=== PATIENT | female | born 1995 | race Caucasian/White ===

== ENCOUNTER 2018-10-18 23:18 | Emergency (ER) | payer OTHER, SELFPAY ==
[2018-10-18 23:24] VITALS: BP 97/65; PULSE 71; RESP 18; TEMP 36.2; O2SAT 100; BMI 28.3
--- NOTE | 2018-10-18 23:42 | ED_ITS ---
HPI - Female Genitourinary General Chief complaint: Urogenital-Female Stated complaint: 7 wks , bleeding Time Seen by Provider: 10/18/18 23:41 Source: patient Mode of arrival: ambulatory Limitations: no limitations History of Present Illness HPI Narrative: 23-year-old at approximately 7 weeks EGA here for evaluation of vaginal spotting. She states that it started today. No other vaginal discharge. No urinary symptoms. No back pain. No fevers. Related Data Allergies Allergy/AdvReac Type Severity Reaction Status Date / Time No Known Drug Allergies Allergy Verified 10/18/18 23:28 Review of Systems Constitutional Denies fever(s) and Denies headache(s) ENT Ears, Nose, Mouth, and Throat: Denies headache(s) Gastrointestinal Gastrointestinal: Denies abdominal pain, Denies nausea and Denies vomiting Genitourinary Denies dysuria Comments: Vaginal spotting Musculoskeletal Denies back pain Integumentary/Breasts Denies lesions and Denies rash Neurologic Denies headache(s) Hematologic/Lymphatic Comments: Not on anticoagulation PFSH Medical History Healthy adult (Acute) Surgical History H/O: section (Acute) Social History Smoking Status: Never smoker Exam Initial Vital Signs Initial Vital Signs: Vital Signs Temperature 97.1 F L 10/18/18 23:24 Pulse Rate 71 10/18/18 23:24 Respiratory Rate 18 10/18/18 23:24 Blood Pressure 97/65 10/18/18 23:24 Pulse Oximetry 100 10/18/18 23:24 Const General: cooperative, healthy appearing, comfortable, well developed, well groomed and No acute distress Orientation: alert, awake and oriented x3 HENMT Head: normal to inspection and normocephalic GI Inspection: non-distended Palpation: soft, No firm and No tender Back/Spine/Pelvis Back: No CVA tenderness Skin Lesions: no lesions Rashes: no rashes Neuro General: alert, awake and oriented x3 Extrem General: normal to inspection and capillary refill normal Psych Appearance: grossly normal and well kempt Course Orders Ordered: ED Orders 10/18/18 23:51 ABO RH Type Stat HCG Quantitative Stat 10/19/18 00:01 US OB <= 14 weeks fetus Stat Vital Signs - 8 hr 10/18/18 23:24 10/19/18 01:54 Temperature 97.1 F L 98.3 F Pulse Rate 71 70 Respiratory Rate 18 17 Blood Pressure 97/65 109/58 L Pulse Oximetry 100 99 MDM - Female Genitourinary Lab Data Lab Results 10/18/18 10/18/18 Range/Units 23:51 23:51 HCG, Quant 39706 mIU/mL Blood Type A Positive Point of Care Testing Test Results Positive Urine Dip Bedside Urine Glucose Negative Bedside Urine Bilirubin - Negative Bedside Urine Ketone - Negative Urine Specific [place] 1.025 Bedside Urine Occult Blood ++ Bedside Urine pH 6.0 Bedside Urine Protein - Negative Bedside Urine Urobilinogen - Negative Bedside Urine Nitrite - Negative Bedside Urine Leukocytes - Negative Esterase Imaging Data US - abdomen: Radiologist's impression: Small. Station 0 hemorrhage without mass effect on the gestational sac. Early single live IUP consistent with 7 weeks 2 days gestation. Limited visualization of the maternal ovaries MDM Narrative Medical decision making narrative: Patient is Rh positive. No indication for RhoGAM. IUP seen on the ultrasound. She has a benign abdominal exam. We did discuss threatened miscarriage. Did discuss return precautions. Will hold on further workup for now. Patient is instructed to make contact with a OB provider. She expressed understanding and agreement with plan. Discharge Plan Departure Patient Disposition: Home Clinical Impression: Threatened miscarriage Discharge Date/Time: 10/19/18 01:55 Interventions: ED Discharge Assessment Last Done: 10/19/18 01:54 Instructions: DI for Threatened Activity Restrictions/Additional Instructions: The ultrasound today shows that your baby looks well had an estimated age of 7 weeks and 2 days. Recommend you keep all of your scheduled medical appointments. Return to the emergency department for any new or worsening symptoms. Continue all medications as directed
--- NOTE | 2018-10-19 00:01 | DI.US.S_ITS ---
PROCEDURE: US OB <= 14 WEEKS FETUS INDICATIONS: 7 weeks EGA and vag bleeding OUTSIDE/PRIOR DATING DATA: Last menstrual period (LMP): 08/24/18. LMP-based estimated date of delivery (CHELSEA): 05/31/19. First dating scan (date and location): 10/19/18. Estimated date of delivery (CHELSEA) from first dating scan: 06/05/19. TECHNIQUE: Real-time scanning was performed of the fetus and maternal pelvic organs, with image documentation. Endovaginal scanning was also performed to better visualize the fetus and maternal ovaries. COMPARISON: None. FINDINGS: Embryo: Albers-rump length measures 11 mm corresponding to 7 weeks 2 days. Embryonic heart rate measures 135 beats per minute. Small perigestational site bleed site measuring roughly 1.3 x 0.4 x 1.3 cm. Measurement variability in dating: +/- 4 weeks by LMP, +/- 7 days by mean sac diameter (use before 6 weeks gestation if crown-rump length not able to be measured), +/- 5 days by crown-rump length (up to 8 weeks 6 days gestation), +/- 7 days by crown-rump length (up to 13 weeks 6 days gestation). Maternal organs: Adnexa within normal limits. Limited images through the kidneys demonstrate no hydronephrosis. IMPRESSION: 7 week 2 day single living IUP and there is a small perigestational sac bleed site. Dictated by: Curt MCKEON Interpreted: Pastora Malone MD on 10/19/2018 at 8:52 Approved by: Pastora Malone M.D. on 10/19/2018 at 12:56
[2018-10-19 00:27] LABS: HCG Quantitative /Beta subunit 83909 mIU/mL
[2018-10-19 01:54] VITALS: BP 109/58; PULSE 70; RESP 17; TEMP 36.8; O2SAT 99
== END 2018-10-19 01:55 | disposition home or self-care (01) ==
PROVIDERS: Emergency Provider Emergency Medicine
DX: O20.0 Threatened abortion (principal); Z3A.01 Less than 8 weeks gestation of pregnancy
CPT/HCPCS: 76801; 76817; 81003; 81025; 84702; 86900; 86901; 99283; 99284

== ENCOUNTER 2019-02-03 09:27 | Outpatient (CLI) | payer OTHER, SELFPAY | END 2019-02-03 10:30 | disposition home or self-care (01) | LOC: OB 02-08 06:52 | PROVIDERS: Visit Provider Family Medicine | DX: O42.912 Preterm premature rupture of membranes, unspecified as to length of time between rupture and onset of labor, second trimester (principal); Z3A.23 23 weeks gestation of pregnancy | CPT/HCPCS: 59025; 84112; G0378; G0379 ==

== ENCOUNTER → 2020-10-15 10:11 | Outpatient (CLI) | payer OTHER, SELFPAY ==
[2020-10-17 01:06] LABS: Chlamydia trachomatis NAA Negative (Negative); Neisseria gonorrhoeae NAA Negative (Negative)
== END ==
PROVIDERS: Visit Provider Specialist
DX: Z34.81 Encounter for supervision of other normal pregnancy, first trimester (principal); Z3A.12 12 weeks gestation of pregnancy
CPT/HCPCS: 87491; 87591

== ENCOUNTER → 2020-10-30 11:22 | Outpatient (CLI) | payer OTHER, SELFPAY ==
[2020-10-30 12:38] LABS: Add Manual Diff / Slide Review NO; Basophils Absolute Auto 0 /uL (0-100); Basophils Percent Auto 0.3 % (0-2); Eosinophils Absolute Auto 100 /uL (0-450); Eosinophils Percent Auto 0.6 % (2-4); Hemoglobin 13.7 g/dL (12.0-16.0); Lymphocytes Absolute Auto 1500 /uL (1100-4500); Lymphocytes Percent Auto 17.1 % (25-40); Mean Corpuscular HGB Conc 35.2 % (30-36); Mean Corpuscular Hemoglobin 30.5 PG (26-34); Mean Corpuscular Volume 86.8 fL (80-100); Monocytes Absolute Auto 500 /uL (0-900); Monocytes Percent Auto 5.3 % (3-14); Neutrophils Absolute Auto 6900 /uL (1500-7000); Neutrophils Percent Auto 76.7 % (50-75); Platelet Count 249 X10^3/uL (150-400); Red Blood Cell Count 4.49 X10^6/uL (4.0-5.2); Red Cell Distribution Width 12.9 % (11.6-14.8)
[2020-10-30 12:42] LABS: Appearance Urine UA CLEAR; Bilirubin Urine UA NEGATIVE (NEGATIVE); Color Urine UA YELLOW; Glucose Urine UA NEGATIVE (Negative); Ketones Urine UA NEGATIVE (NEGATIVE); Leukocyte Esterase Urine UA NEGATIVE (NEGATIVE); Nitrite Urine UA NEGATIVE (Negative); Occult Blood Urine UA TRACE-INTACT (Negative); Protein Urine UA NEGATIVE (Negative); Urobilinogen Urine UA 0.2 E.U./dL (0.2)
[2020-10-31 06:35] LABS: Varicella IgG Antibody 1444 index (Immune >165)
[2020-10-31 10:07] LABS: RPR Screen Non Reactive (Non Reactive)
[2020-11-01 18:15] LABS: Hepatitis B Surface Antigen NEGATIVE s/c (NEGATIVE); Rubella Antibody IgG 29.2 IU/mL (>15)
[2020-11-01 18:35] LABS: HIV 1 & 2 Ab/Ag 4th Gen Combo NEGATIVE (NEGATIVE); Hep C Virus Ab w/Reflex Quant NEGATIVE s/c (NEGATIVE)
== END ==
PROVIDERS: Referring Provider Specialist; Visit Provider Specialist
DX: Z34.81 Encounter for supervision of other normal pregnancy, first trimester (principal)
CPT/HCPCS: 36415; 80055; 81003; 86787; 86803; 86850; 86900; 86901; 87077; 87086; 87185; 87186; 87389

== ENCOUNTER → 2020-11-28 14:11 | Outpatient (CLI) | payer OTHER, SELFPAY ==
[2020-11-28 16:16] LABS: Urine N gonorrhoeae NOT DETECTED
[2020-11-28 16:54] LABS: Urine Chlamydia NOT DETECTED
[2020-11-30 20:36] LABS: AFP, Serum 60.2 ng/mL (.); Inhibin A, Dimeric 162.71 pg/mL (.); Inhibin A, MoM 1.15 (.); Maternal Ethnicity Caucasian (.); Maternal Weight 193 lbs (.); Number of Fetuses No (.); OSBR Risk 1 IN 1895 (.); Results Report (.); Test Results *Screen Negative* (.); hCG, Serum 24369 mIU/mL (.)
== END ==
PROVIDERS: Referring Provider Specialist; Visit Provider Specialist
DX: Z34.82 Encounter for supervision of other normal pregnancy, second trimester (principal); Z3A.17 17 weeks gestation of pregnancy
CPT/HCPCS: 82105; 82677; 84702; 86336; 87491; 87591

== ENCOUNTER → 2020-12-14 10:33 | Outpatient (CLI) | payer OTHER, SELFPAY ==
--- NOTE | 2020-12-14 10:34 | DI.US.S_ITS ---
PROCEDURE: US OB >= 14 WEEKS FETUS INDICATIONS: 20 week anatomy scan OUTSIDE/PRIOR DATING DATA: Last menstrual period (LMP): 07/26/2020. LMP-based estimated date of delivery (CHELSEA): 05/02/2021 . First dating scan (date and location): 09/17/2020 . Estimated date of delivery (CHELSEA) from first dating scan: 04/29/2021 . TECHNIQUE: Real-time scanning was performed of the fetus, with image documentation and biometric measurements. Endovaginal scanning: No COMPARISON: None. FINDINGS: General: A single living intrauterine gestation is present. Presentation: Transverse to breech. Placenta: Placental position is anterior , without previa. Amniotic fluid index: 13.8 cm, normal range is 5-24 cm. heart rate: 141 beats per minute. Maternal cervical canal: 4.3 cm long. Normal lower limit is 2.5 cm. biometrics: Biparietal diameter: 20 weeks 3 days Head circumference: 21 weeks 3 days Abdominal circumference: 21 weeks 6 Femur length: 22 weeks 3 days Estimated gestational age from initial scan: 20 weeks 4 days Composite gestational age from present scan: 21 weeks 4 days Estimated weight and percentile: 767 g, 98th percentile Measurement variability for biometric dating: +/- 7 days from 14 weeks to 15 weeks 6 days gestation, +/- 10 days from 16 weeks to 21 weeks 6 days gestation, +/- 2 weeks from 22 weeks to 27 weeks 6 days gestation, +/- 3 weeks for 28 weeks gestation or later. weight reference: 4500 g or EFW >90/95% is considered macrosomia or large for gestational age. EFW <10% is small for gestational age. EFW 5% or less is considered intra-uterine growth restriction. Anatomic survey: Neuro: Ventricles are non-dilated at less than 10 mm. Cisterna magna is normal at 3-11 mm. Cerebellum is normal in size and morphology. Nuchal skin fold: Normal at less than 6 mm between 14-21 weeks gestational age. Face: Nose and lips, facial profile are normal. Spine: No evidence for spina bifida. Heart: 4-chambered heart is present, with normal ventricular outflow tracts. Diaphragm: Diaphragm is intact. Stomach: Left-sided stomach is present. Kidneys: No hydronephrosis. Normal is less than 5 mm in 2nd trimester, less than 7 mm in 3rd trimester. Cord: 3-vessel cord has orthotopic insertion. Bladder: Normal in size. Extremities: All 4 extremities identified. IMPRESSION: Single living IUP redemonstrated and interval growth is greater than normal with estimated weight 98th percentile. Follow-up growth parameters recommended to exclude early developing macrosomia. Normal anatomic survey. Dictated by: Curt BANKS Interpreted: Silvino Boston MD on 12/14/2020 at 14:53 Approved by: Silvino Boston M.D. on 12/14/2020 at 15:13
== END ==
PROVIDERS: Referring Provider Specialist; Visit Provider Specialist
DX: Z34.82 Encounter for supervision of other normal pregnancy, second trimester (principal); Z3A.21 21 weeks gestation of pregnancy
CPT/HCPCS: 76811

== ENCOUNTER → 2021-01-17 09:29 | Outpatient (CLI) | payer OTHER, SELFPAY ==
[2021-01-17 11:39] LABS: GTT (PREG) 1 Hour PP 50gm Dose 127 mg/dL (76-139)
[2021-01-17 11:57] LABS: Hematocrit 33.3 % (36-46); Hemoglobin 11.5 g/dL (12.0-16.0)
== END ==
PROVIDERS: Family Provider Specialist; Referring Provider Specialist; Visit Provider Specialist
DX: Z34.82 Encounter for supervision of other normal pregnancy, second trimester (principal); Z3A.25 25 weeks gestation of pregnancy
CPT/HCPCS: 36415; 82950; 85014; 85018

== ENCOUNTER 2021-02-14 09:00 | Outpatient (RCR) | payer OTHER, SELFPAY ==
--- NOTE | 2021-01-17 15:44 | PT.OIE ---
Current Diagnoses Other female genital prolapse (01/17/21) Other specified related conditions, second trimester (01/17/21) Pelvic and perineal pain (01/17/21) Encounter for supervision of normal , unspecified, unspecified trimester (01/17/21) Past Medical History (This Medical Record has been edited. Action required.) Abnormal Pap smear of cervix (~2017) Anemia (~2013) Healthy adult Past Surgical History (This Medical Record has been edited. Action required.) Anesthesia H/O: section History of section [place] teeth removed (~2013) Visit Care Team Role Provider Type Adri Mccormack MD Attending Provider Physician Family Provider Referring Provider Specialty: REQUIREMENTS ENGINEER Address: [address] [place] [address], [facility] Email: [email or web address] Physical Therapy Initial Evaluation PT-OP-A Visit Information Start: 01/10/21 17:22 Freq: Status: Active Protocol: Document 01/17/21 12:47 LRN (Rec: 01/17/21 14:17 LRN [id number]) Out-Patient Physical Therapy Visit Information Visit Information Visit Type Initial Evaluation Visit Start Time 12:47 Visit Stop Time 13:32 Total Visit Minutes 45 Visit Number 1 Evaluation Information Evaluation Date 01/17/21 Precautions Precautions Third pregancy, pt scheduled for (due date is ) . PT-OP-B Current Condition Start: 01/10/21 17:22 Freq: Status: Active Protocol: Document 01/17/21 12:47 LRN (Rec: 01/17/21 14:17 LRN [id number]) Current Condition History of Current Condition Onset Date 11/2020 Current Complaints Pelvic Pain History of Current Condition with 3rd baby and having pelvic pain. PF hurts all the time in all positions. Pain is in the pelvic floor and lower left side of the back. Pt is 25 weeks along and is planning a . Due date is 05/04/21. Has only found IBP medication to be helpful, tried ice, heat and donut pillow, without relief. No history of urinary leakage or constipation. Onse of back pain started with . She has had general middle LBP occasionally prior to . Had pelvic pain with 2nd at end of that resolved after . Prior Treatments and Tests None Future Testing and Treatments Planned of date unknown (due 05/04/21) Treatment Goals Patient/Caregiver Goals Goal is to relieve as much pain as possible. 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 Baseline Function- Recreation/Hobbies Exercised in gym 4x/week and ran. 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 Functional Limitations- Recreation/ Walking at most 1/4 mile, must Hobbies stop due to pain. Personal Factors Other Personal Factors That May Effect 2 small children (ages 4 & 1) Therapy/Recovery at home. 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 PT-OP-C Subjective Start: 01/10/21 17:22 Freq: Status: Active Protocol: Document 01/17/21 12:47 LRN (Rec: 01/17/21 14:17 LRN [id number]) OP-PT Subjective Patient Comments Patient Comments Sleeps on sides, but lately has been sleeping on her back for past 1.5 weeks because it is more comfortable to sleep; her pulls her over because she can't roll to get up and he has to help her sit up. Patient Questionnaires Pelvic Pain and Urgency/Frequency Patient Symptom Scale Pelvic Pain Score 21 OP-PT Pain Assessment Location L low back Pain Location Details L low back Intensity 7 Scale Used Numeric (0 - 10) Description Throbbing Frequency Intermittent Pain Duration 5' after moving Pain Aggravating Factors Changing Position Other Pain Aggravating Factors Sit>stand, rolling in bed. Pelvic Floor Pain Location Details Mainly front of PF Intensity 9 Scale Used Numeric (0 - 10) Description Throbbing Frequency Constant Pain Alleviating Factors Medication PT-OP-I Pelvic Floor Start: 01/10/21 17:22 Freq: Status: Active Protocol: Document 01/17/21 12:47 LRN (Rec: 01/17/21 14:17 LRN [id number]) Pelvic Floor Assessment Bowel Bowel Movement Frequency 1x/day or every other day. [place] Stool Chart Comments Bowel types are 3 & 4 Comments Pelvic Floor Comments Labia Majora & Minora, Superficial vaginal muscles - tenderness, trigger points and muscle guarding present. PT-OP-J Posture/Palpation/Skin Start: 01/10/21 17:22 Freq: Status: Active Protocol: Document 01/17/21 12:47 LRN (Rec: 01/17/21 14:17 LRN [id number]) Posture Evaluation Position Standing Head/C-Spine Posture Forward Head T-Spine Posture Flattened L-Spine Posture Increased Lordosis Pelvis Posture Anteriorly Tilted Knee Posture (L) Genu Valgus,(R) Genu Valgus Ankle/Foot Posture (L) Pronated,(R) Pronated Comments Posture Comments R foot pronates more than L. Pt sits leaning to the L with R leg crossed of the L leg. Palpation Assessment Location Hip AD tendons Palpation Location Hip AD tendons, R> L Palpation Findings Tenderness,Trigger Point L Low Back Palpation Location L low back and gluteals Palpation Details L PSIS is anterior (deep) in standing: L Iliac Crest is low. R scapula is low. Pain at L Piriformis PT-OP-K Range of Motion Start: 01/10/21 17:22 Freq: Status: Active Protocol: Document 01/17/21 12:47 LRN (Rec: 01/17/21 14:17 LRN [id number]) Lumbar Spine Range of Motion Lumbar Spine Active Degrees Testing Position Standing Flexion 60 Extension 30 Rotation Left 25 Rotation Right 25 Lateral Flexion Left 22 Lateral Flexion Right 20 ROM Limitations Pain Comments Pain PF increased > with BB than FB FB is with 20 deg's hip ext BB is with 7 deg's hip ext PT-OP-M Strength Start: 01/10/21 17:22 Freq: Status: Active Protocol: Document 01/17/21 12:47 LRN (Rec: 01/17/21 14:17 LRN [id number]) Trunk Strength Trunk Manual Muscle Testing Testing Position Supine Core Stabilization Pt is not able to maintain core stability with MMT of hips Hip Strength Hip Manual Muscle Testing Right Flexion (L2) 2+ Poor+ Abduction 2+ Poor+ Adduction 1 Trace External Rotation 3 Fair Internal Rotation 3 Fair Comments PF pain with all leg movememts . Left Flexion (L2) 2+ Poor+ Abduction 2+ Poor+ Adduction 1 Trace External Rotation 3 Fair Internal Rotation 3 Fair Comments PF pain worse with hip flexion (L>R) PF pain with all leg movememts . PT-OP-Q Treatments Start: 01/10/21 17:22 Freq: Status: Active Protocol: Document 01/17/21 12:47 LRN (Rec: 01/17/21 14:17 LRN [id number]) Self-Care/Home Management Treatment Education Patient Education Home Exercise Program Other Education Discussed results of evalation , goals, and plan of care. Activities Self-Care/Home Management Activities I/S pt in starting with TA contractions, f/b sitting BKFO & then PF strengthening. PT-OP-T Assessment and Plan Start: 01/10/21 17:22 Freq: Status: Active Protocol: Document 01/17/21 12:47 LRN (Rec: 01/17/21 14:17 LRN [id number]) Physical Therapy Assessment Rehab Potential Rehabilitation Potential Good Evaluation Complexity Number of Personal Factors/Comorbidities 1-2 Number of Body Systems Impaired 4 or More Clinical Presentation at Evaluation Evolving Impairments Impairments Activity Tolerance,Pain,Soft Tissue Mobility,Strength, Transfers Goals Three Impairment L LBP with transfers (rated 7/ 10 Short Term Goal (STG) Pt will be independent with a hip stabilization and flexibility ex program. STG Duration 01/16/21 Residential Goal (LTG) Decrease L LBP with transfers. LTG Duration 04/27/21 Two Impairment PF pain in all positions ( rated 9/10) Short Term Goal (STG) Pt will be educated & independent in a PF/core strengthening home program. STG Duration 02/22/21 Etymology Professor Goal (LTG) Relieve Pelvic Floor pain as possible, with pt able to tolerate sleeping on sides instead of on the back as her progresses. LTG Duration 04/27/21 One Impairment Pt lacks self care HEP Short Term Goal (STG) Pt will be educated in proper transfer and pain managment techniques. STG Duration 01/25/21 Etymology Professor Goal (LTG) Pt will be educated in proper posturing to counteract postural changes with . LTG Duration 02/08/21 Assessment Summary Assessment Pt presents with pelvic floor and L low back pain due to soft tissue dysfunction and general weakness of the PF, core, hips and probable L SIJ instability. Special Test for SIJ instability, and hip mobility testing was deferred due to increasing pain complaints as evaluation was progressed. Pt may be straining her PF muscles from sitting all day and with progression of her she has general instability of her core and pelvis, exacerbating her PF pain. The pt will benefit from skilled physical therapy for strengthening of her core, hips, and PF; education of proper transfers and nighttime positioning and placement on a self care HEP. The pt may benefit from a SI belt if strengthening alone is not able to stabilize her pelvis. Physical Therapy Plan Frequency and Duration Frequency of Treatment 1x/Week Plan of Care Start Date 01/17/21 Plan of Care End Date 04/27/21 Therapeutic Interventions Therapeutic Interventions Coordination Training,Home Exercise Program,Joint Mobilizations,Manual Therapy, Neuromuscular Re-education, Patient/Caregiver Education, Self-Care/Home Management,Soft Tissue Mobilization, Therapeutic Activities, Therapeutic Exercises Modalities Biofeedback,Cold Pack/Ice Massage,Electric Stimulation, Hot Packs Next Visit Focus/Plan Next Note Type Treatment Note Next Visit Plan Start eduation in self care HEP: TA/hip/PF strengthening. Check ROM of hips as tolerated and issue HEP for areas of tightness (hip AD, IR ). Start pt on PF stretch ( Happy Baby Pose Child's Pose, Squats). Educate pt in stretches and ex she can do at work/desk.
--- NOTE | 2021-01-17 15:44 | PT.OPPOC ---
Physical, Occupational & Speech Therapy At [facility] Current Diagnoses Other female genital prolapse (01/17/21) Other specified related conditions, second trimester (01/17/21) Pelvic and perineal pain (01/17/21) Encounter for supervision of normal , unspecified, unspecified trimester (01/17/21) Visit Care Team Role Provider Type Adri Mccormack MD Attending Provider Physician Family Provider Referring Provider Specialty: EFFICIENCY EXPERT Address: [address] [place] [address], [address] Email: [email or web address] Plan Of Care PT-OP-T Assessment and Plan Start: 01/10/21 17:22 Freq: Status: Active Protocol: Document 01/17/21 12:47 LRN (Rec: 01/17/21 14:17 LRN [id number]) Physical Therapy Assessment Rehab Potential Rehabilitation Potential Good Evaluation Complexity Number of Personal Factors/Comorbidities 1-2 Number of Body Systems Impaired 4 or More Clinical Presentation at Evaluation Evolving Impairments Impairments Activity Tolerance,Pain,Soft Tissue Mobility,Strength, Transfers Goals Three Impairment L LBP with transfers (rated 7/ 10 Short Term Goal (STG) Pt will be independent with a hip stabilization and flexibility ex program. STG Duration 01/16/21 Gluing Machine Feeder Goal (LTG) Decrease L LBP with transfers. LTG Duration 04/27/21 Two Impairment PF pain in all positions ( rated 9/10) Short Term Goal (STG) Pt will be educated & independent in a PF/core strengthening home program. STG Duration 02/22/21 Prison Goal (LTG) Relieve Pelvic Floor pain as possible, with pt able to tolerate sleeping on sides instead of on the back as her progresses. LTG Duration 04/27/21 One Impairment Pt lacks self care HEP Short Term Goal (STG) Pt will be educated in proper transfer and pain managment techniques. STG Duration 01/25/21 Gluing Machine Feeder Goal (LTG) Pt will be educated in proper posturing to counteract postural changes with . LTG Duration 02/08/21 Assessment Summary Assessment Pt presents with pelvic floor and L low back pain due to soft tissue dysfunction and general weakness of the PF, core, hips and probable L SIJ instability. Special Test for SIJ instability, and hip mobility testing was deferred due to increasing pain complaints as evaluation was progressed. Pt may be straining her PF muscles from sitting all day and with progression of her she has general instability of her core and pelvis, exacerbating her PF pain. The pt will benefit from skilled physical therapy for strengthening of her core, hips, and PF; education of proper transfers and nighttime positioning and placement on a self care HEP. The pt may benefit from a SI belt if strengthening alone is not able to stabilize her pelvis. Physical Therapy Plan Frequency and Duration Frequency of Treatment 1x/Week Plan of Care Start Date 01/17/21 Plan of Care End Date 04/27/21 Therapeutic Interventions Therapeutic Interventions Coordination Training,Home Exercise Program,Joint Mobilizations,Manual Therapy, Neuromuscular Re-education, Patient/Caregiver Education, Self-Care/Home Management,Soft Tissue Mobilization, Therapeutic Activities, Therapeutic Exercises Modalities Biofeedback,Cold Pack/Ice Massage,Electric Stimulation, Hot Packs Next Visit Focus/Plan Next Note Type Treatment Note Next Visit Plan Start eduation in self care HEP: TA/hip/PF strengthening. Check ROM of hips as tolerated and issue HEP for areas of tightness (hip AD, IR ). Start pt on PF stretch ( Happy Baby Pose Child's Pose, Squats). Educate pt in stretches and ex she can do at work/desk. Plan of Care Dates Plan of Care Start Date 01/17/21 Plan of Care End Date 04/27/21 Electronically Signed by: Asya Bonner, PT 01/17/21 1584 Please Sign and Return: I have reviewed this Plan of Care and certify that the skilled therapy services above are required to meet the patient?s needs. Physician Signature Date Printed Name and Credentials Clinical Instructor Signature Printed Name and Credentials
--- NOTE | 2021-01-24 16:03 | PT.OTN ---
Current Diagnoses Other female genital prolapse (01/24/21) Other specified related conditions, second trimester (01/24/21) Pelvic and perineal pain (01/24/21) Encounter for supervision of normal , unspecified, unspecified trimester (01/24/21) Physical Therapy Treatment Note PT-OP-A Visit Information Start: 01/10/21 17:22 Freq: Status: Active Protocol: Document 01/24/21 09:03 LRN (Rec: 01/24/21 09:53 LRN [id number]) Out-Patient Physical Therapy Visit Information Visit Information Visit Type Treatment Note Visit Start Time 09:03 Visit Stop Time 09:50 Total Visit Minutes 47 Visit Number 2 PT-OP-B Current Condition Start: 01/10/21 17:22 Freq: Status: Active Protocol: Document 01/17/21 12:47 LRN (Rec: 01/17/21 14:17 LRN [id number]) Current Condition History of Current Condition Onset Date 11/2020 Current Complaints Pelvic Pain History of Current Condition with 3rd baby and having pelvic pain. PF hurts all the time in all positions. Pain is in the pelvic floor and lower left side of the back. Pt is 25 weeks along and is planning a . Due date is 05/04/21. Has only found IBP medication to be helpful, tried ice, heat and donut pillow, without relief. No history of urinary leakage or constipation. Onse of back pain started with . She has had general middle LBP occasionally prior to . Had pelvic pain with 2nd at end of that resolved after . Prior Treatments and Tests None Future Testing and Treatments Planned of date unknown (due 05/04/21) Treatment Goals Patient/Caregiver Goals Goal is to relieve as much pain as possible. 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 Baseline Function- Recreation/Hobbies Exercised in gym 4x/week and ran. 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 Functional Limitations- Recreation/ Walking at most 1/4 mile, must Hobbies stop due to pain. Personal Factors Other Personal Factors That May Effect 2 small children (ages 4 & 1) Therapy/Recovery at home. Works 3 days/week in [employer], in the [employer], works in admin sitting in chair all day. PT-OP-C Subjective Start: 01/10/21 17:22 Freq: Status: Active Protocol: Document 01/24/21 09:03 LRN (Rec: 01/24/21 09:53 LRN [id number]) OP-PT Subjective Patient Comments Patient Comments Feeling better, when squeezing the core it helps a lot but the pain is still there. No LBP today. PT-OP-I Pelvic Floor Start: 01/10/21 17:22 Freq: Status: Active Protocol: Document 01/17/21 12:47 LRN (Rec: 01/17/21 14:17 LRN [id number]) Pelvic Floor Assessment Bowel Bowel Movement Frequency 1x/day or every other day. [place] Stool Chart Comments Bowel types are 3 & 4 Comments Pelvic Floor Comments Labia Majora & Minora, Superficial vaginal muscles - tenderness, trigger points and muscle guarding present. PT-OP-J Posture/Palpation/Skin Start: 01/10/21 17:22 Freq: Status: Active Protocol: Document 01/17/21 12:47 LRN (Rec: 01/17/21 14:17 LRN [id number]) Posture Evaluation Position Standing Head/C-Spine Posture Forward Head T-Spine Posture Flattened L-Spine Posture Increased Lordosis Pelvis Posture Anteriorly Tilted Knee Posture (L) Genu Valgus,(R) Genu Valgus Ankle/Foot Posture (L) Pronated,(R) Pronated Comments Posture Comments R foot pronates more than L. Pt sits leaning to the L with R leg crossed of the L leg. Palpation Assessment Location Hip AD tendons Palpation Location Hip AD tendons, R> L Palpation Findings Tenderness,Trigger Point L Low Back Palpation Location L low back and gluteals Palpation Details L PSIS is anterior (deep) in standing: L Iliac Crest is low. R scapula is low. Pain at L Piriformis PT-OP-K Range of Motion Start: 01/10/21 17:22 Freq: Status: Active Protocol: Document 01/24/21 09:03 LRN (Rec: 01/24/21 15:52 LRN [id number]) Hip Goniometric Range of Motion Hip Left Passive Testing Position Supine Internal Rotation 30 External Rotation 85 Right Passive Testing Position Supine Internal Rotation 30 External Rotation 85 PT-OP-M Strength Start: 01/10/21 17:22 Freq: Status: Active Protocol: Document 01/17/21 12:47 LRN (Rec: 01/17/21 14:17 LRN [id number]) Trunk Strength Trunk Manual Muscle Testing Testing Position Supine Core Stabilization Pt is not able to maintain core stability with MMT of hips Hip Strength Hip Manual Muscle Testing Right Flexion (L2) 2+ Poor+ Abduction 2+ Poor+ Adduction 1 Trace External Rotation 3 Fair Internal Rotation 3 Fair Comments PF pain with all leg movememts . Left Flexion (L2) 2+ Poor+ Abduction 2+ Poor+ Adduction 1 Trace External Rotation 3 Fair Internal Rotation 3 Fair Comments PF pain worse with hip flexion (L>R) PF pain with all leg movememts . PT-OP-Q Treatments Start: 01/10/21 17:22 Freq: Status: Active Protocol: Document 01/24/21 09:03 LRN (Rec: 01/24/21 09:53 LRN [id number]) Therapeutic Exercises Sidelying Exercises Clamshell Sidelying Exercise Name Clamshell Side bilateral Reps/Minutes 10x TA tightening Sidelying Exercise Name TA tightening Side bilateral Reps/Minutes 8 hold x 15 Sitting Exercises Lat Hip Stretch Sitting Exercise Name Lateral Hip stretch Side bilateral Hip AB Sitting Exercise Name Hip AB (Cruzito BKFO) Side bilateral Equipment Used Lev 2 TB Reps/Minutes 10x 3 TA tightening Sitting Exercise Name TA tightening Side bilateral Reps/Minutes 5' Comments Extra time for training Therapeutic Activity Therapeutic Activity Sit <> Supine Name Transfer training sit <> supine Reps/Minutes 9' Self-Care/Home Management Treatment Education Patient Education Body Mechanics Other Education Educated pt in proper sit <> supine transfer. Educated pt in pelvic anatomy as it relates to pubic symphasis and SI joints. Educated & discussed use of SI belt and provided information for ordering, trial of blue strap with + response of no pain. Pt education in pain managment techniques. Activities Self-Care/Home Management Activities Issued handouts: *SI Com-pressor belt, *Sitting hip ER/IR, *PF tightening, * Clamshell & reverse clamshell. Issued Lev2 TB PT-OP-T Assessment and Plan Start: 01/10/21 17:22 Freq: Status: Active Protocol: Document 01/24/21 09:03 LRN (Rec: 01/24/21 09:53 LRN [id number]) Physical Therapy Assessment Goals Three Impairment L LBP with transfers (rated 7/ 10) Short Term Goal (STG) Pt will be independent with a hip stabilization and flexibility ex program. STG Duration 01/16/21 Fdc Goal (LTG) Decrease L LBP with transfers. LTG Duration 04/27/21 Two Impairment PF pain in all positions ( rated 9/10) Short Term Goal (STG) Pt will be educated & independent in a PF/core strengthening home program. STG Duration 02/22/21 (01/24/21: Progressed ) Fdc Goal (LTG) Relieve Pelvic Floor pain as possible, with pt able to tolerate sleeping on sides instead of on the back as her progresses. LTG Duration 04/27/21 One Impairment Pt lacks self care HEP Short Term Goal (STG) Pt will be educated in proper transfer and pain management techniques. STG Duration 01/25/21 (01/24/21: MET GOAL) Shipping Specialist Goal (LTG) Pt will be educated in proper posturing to counteract postural changes with . LTG Duration 02/08/21 Progress Towards Goals Progress Comments STG *1 MET. Assessment Summary Assessment Pt with Pelvic floor and L low back pain due to soft tissue dysfunction and general weakness of the PF, core, hips and probable L SIJ instability. Pt LBP is less with improved engagement of her TA and proper transfers. Pt improving. Physical Therapy Plan Frequency and Duration Frequency of Treatment 1x/Week Plan of Care Start Date 01/17/21 Plan of Care End Date 04/27/21 Next Visit Focus/Plan Next Note Type Treatment Note Next Visit Plan Continue education in self care HEP: TA/hip/PF strengthening. Recheck HEP issued of hip IR stretches and core/hip strengthening. Start pt on PF stretch (Happy Baby Pose Child's Pose, Squats ). Educate pt in stretches and ex she can do at work/desk .
--- NOTE | 2021-01-29 09:29 | PT-OP ANOTE ---
Cancelled, no childcare
--- NOTE | 2021-01-31 09:36 | PT-OP ANOTE ---
Pt DNS. Unable to leave message due to full mailbox
--- NOTE | 2021-02-04 16:54 | PT.OTN ---
Current Diagnoses Other female genital prolapse (02/04/21) Other specified related conditions, second trimester (02/04/21) Pelvic and perineal pain (02/04/21) Encounter for supervision of normal , unspecified, unspecified trimester (02/04/21) Physical Therapy Treatment Note PT-OP-A Visit Information Start: 01/10/21 17:22 Freq: Status: Active Protocol: Document 02/04/21 08:13 LRN (Rec: 02/04/21 09:02 LRN [id number]) Out-Patient Physical Therapy Visit Information Visit Information Visit Type Treatment Note Visit Start Time 08:15 Visit Stop Time 09:00 Total Visit Minutes 45 Visit Number 3 Evaluation Information Evaluation Date 01/17/21 Precautions Precautions Third pregancy, pt scheduled for (due date is ) . PT-OP-B Current Condition Start: 01/10/21 17:22 Freq: Status: Active Protocol: Document 01/17/21 12:47 LRN (Rec: 01/17/21 14:17 LRN [id number]) Current Condition History of Current Condition Onset Date 11/2020 Current Complaints Pelvic Pain History of Current Condition with 3rd baby and having pelvic pain. PF hurts all the time in all positions. Pain is in the pelvic floor and lower left side of the back. Pt is 25 weeks along and is planning a . Due date is 05/04/21. Has only found IBP medication to be helpful, tried ice, heat and donut pillow, without relief. No history of urinary leakage or constipation. Onse of back pain started with . She has had general middle LBP occasionally prior to . Had pelvic pain with 2nd at end of that resolved after . Prior Treatments and Tests None Future Testing and Treatments Planned of date unknown (due 05/04/21) Treatment Goals Patient/Caregiver Goals Goal is to relieve as much pain as possible. 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 Baseline Function- Recreation/Hobbies Exercised in gym 4x/week and ran. 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 Functional Limitations- Recreation/ Walking at most 1/4 mile, must Hobbies stop due to pain. Personal Factors Other Personal Factors That May Effect 2 small children (ages 4 & 1) Therapy/Recovery at home. Works 3 days/week in [employer] in the [employer], works in [employer] sitting in chair all day. PT-OP-C Subjective Start: 01/10/21 17:22 Freq: Status: Active Protocol: Document 02/04/21 08:13 LRN (Rec: 02/04/21 09:02 LRN [id number]) OP-PT Subjective Patient Comments Patient Comments Has barely had any pain. Was in hospital 2 days ago due to cramping and was told it was not labor. Was able to sleep through the whole night last week. Wears SI Belt at home. PT-OP-I Pelvic Floor Start: 01/10/21 17:22 Freq: Status: Active Protocol: Document 01/17/21 12:47 LRN (Rec: 01/17/21 14:17 LRN [id number]) Pelvic Floor Assessment Bowel Bowel Movement Frequency 1x/day or every other day. [place] Stool Chart Comments Bowel types are 3 & 4 Comments Pelvic Floor Comments Labia Majora & Minora, Superficial vaginal muscles - tenderness, trigger points and muscle guarding present. PT-OP-J Posture/Palpation/Skin Start: 01/10/21 17:22 Freq: Status: Active Protocol: Document 01/17/21 12:47 LRN (Rec: 01/17/21 14:17 LRN [id number]) Posture Evaluation Position Standing Head/C-Spine Posture Forward Head T-Spine Posture Flattened L-Spine Posture Increased Lordosis Pelvis Posture Anteriorly Tilted Knee Posture (L) Genu Valgus,(R) Genu Valgus Ankle/Foot Posture (L) Pronated,(R) Pronated Comments Posture Comments R foot pronates more than L. Pt sits leaning to the L with R leg crossed of the L leg. Palpation Assessment Location Hip AD tendons Palpation Location Hip AD tendons, R> L Palpation Findings Tenderness,Trigger Point L Low Back Palpation Location L low back and gluteals Palpation Details L PSIS is anterior (deep) in standing: L Iliac Crest is low. R scapula is low. Pain at L Piriformis PT-OP-K Range of Motion Start: 01/10/21 17:22 Freq: Status: Active Protocol: Document 01/24/21 09:03 LRN (Rec: 01/24/21 15:52 LRN [id number]) Hip Goniometric Range of Motion Hip Left Passive Testing Position Supine Internal Rotation 30 External Rotation 85 Right Passive Testing Position Supine Internal Rotation 30 External Rotation 85 PT-OP-M Strength Start: 01/10/21 17:22 Freq: Status: Active Protocol: Document 01/17/21 12:47 LRN (Rec: 01/17/21 14:17 LRN [id number]) Trunk Strength Trunk Manual Muscle Testing Testing Position Supine Core Stabilization Pt is not able to maintain core stability with MMT of hips Hip Strength Hip Manual Muscle Testing Right Flexion (L2) 2+ Poor+ Abduction 2+ Poor+ Adduction 1 Trace External Rotation 3 Fair Internal Rotation 3 Fair Comments PF pain with all leg movememts . Left Flexion (L2) 2+ Poor+ Abduction 2+ Poor+ Adduction 1 Trace External Rotation 3 Fair Internal Rotation 3 Fair Comments PF pain worse with hip flexion (L>R) PF pain with all leg movememts . PT-OP-Q Treatments Start: 01/10/21 17:22 Freq: Status: Active Protocol: Document 02/04/21 08:13 LRN (Rec: 02/04/21 09:02 LRN [id number]) Therapeutic Exercises Sidelying Exercises Clamshell Sidelying Exercise Name Clamshell Side bilateral Reps/Minutes 15x Comments Ex with holding at end-range TA tightening Sidelying Exercise Name TA tightening Side bilateral Reps/Minutes 8 hold x 15 Sitting Exercises PF strech Sitting Exercise Name Forward Bend stretch for LB/PF Side bilateral Reps/Minutes 3' General stretch program Sitting Exercise Name shoulder rolls, shifting side to side, ankle circles, neck AROM Side bilateral Reps/Minutes 3-5x each Lat Hip Stretch Sitting Exercise Name Lateral Hip stretch Side bilateral Hip AB Sitting Exercise Name Hip AB (Cruzito BKFO) Side bilateral Equipment Used Lev 2 TB Reps/Minutes 10x 3 TA tightening Sitting Exercise Name TA tightening Side bilateral Reps/Minutes 5' Comments Extra time for training Standing Exercises General stretch program Standing Exercise Name Gentle Trunk SB & rot stretch Side bilateral Reps/Minutes 3-5x each Self-Care/Home Management Treatment Education Patient Education Body Mechanics,Home Exercise Program Other Education Educated pt in proper body mechanics for daily activities . Activities Self-Care/Home Management Activities Issued & reviewed handout on * Body Mechanics for Daily Activities and *General stretch program. PT-OP-T Assessment and Plan Start: 01/10/21 17:22 Freq: Status: Active Protocol: Document 02/04/21 08:13 LRN (Rec: 02/04/21 09:02 LRN [id number]) Physical Therapy Assessment Goals Three Impairment L LBP with transfers (rated 7/ 10) Short Term Goal (STG) Pt will be independent with a hip stabilization and flexibility ex program. STG Duration 01/16/21 (02/04/21: Met for sidelie ex's) Halfway Goal (LTG) Decrease L LBP with transfers (initial 7/10). (02/04/21: LLBP is 5/10) LTG Duration 04/27/21 (02/04/21: MET GOAL) Two Impairment PF pain in all positions ( rated 9/10) Short Term Goal (STG) Pt will be educated & independent in a PF/core strengthening home program. STG Duration 02/22/21 (01/24/21: Progressed ) City Detective Goal (LTG) Relieve Pelvic Floor pain as possible, with pt able to tolerate sleeping on sides instead of on the back as her progresses. LTG Duration 04/27/21 (02/04/21: MET GOAL) One Impairment Pt lacks self care HEP Short Term Goal (STG) Pt will be educated in proper transfer and pain management techniques. STG Duration 01/25/21 (01/24/21: MET GOAL) Halfway Goal (LTG) Pt will be educated in proper posturing to counteract postural changes with . (02/04/21: Progressed) LTG Duration 02/08/21 (02/04/21: Progressed ) Assessment Summary Assessment Good recall of HEP of hip strengthening ex's. Weakness of TA on L side visible. Pt had complaints of painful PF after TA strengthening ex's; due to tight PF. Pt has had children via and not vaginally. PF stretches needed. Physical Therapy Plan Frequency and Duration Frequency of Treatment 1x/Week Plan of Care Start Date 01/17/21 Plan of Care End Date 04/27/21 Next Visit Focus/Plan Next Note Type Treatment Note Next Visit Plan 1-2 more visits for placement on HEP: Wall slides, trunk rotation, ?PF stretching ( squat), cat/cameln & child pose stretch. Start pt on PF stretch (Child's Pose, Squats) . Recheck HEP issued of hip IR stretches and general stretches (educate for at work /desk).
--- NOTE | 2021-02-15 18:08 | PT.OTN ---
Current Diagnoses Other female genital prolapse (02/14/21) Other specified related conditions, second trimester (02/14/21) Pelvic and perineal pain (02/14/21) Physical Therapy Treatment Note PT-OP-A Visit Information Start: 01/10/21 17:22 Freq: Status: Active Protocol: Document 02/14/21 08:12 LRN (Rec: 02/14/21 09:53 LRN [id number]) Out-Patient Physical Therapy Visit Information Visit Information Visit Type Treatment Note Visit Start Time 09:13 Visit Stop Time 09:53 Total Visit Minutes 40 Visit Number 4 Evaluation Information Evaluation Date 01/17/21 Precautions Precautions Third pregancy, pt scheduled for (due date is ) . PT-OP-B Current Condition Start: 01/10/21 17:22 Freq: Status: Active Protocol: Document 01/17/21 12:47 LRN (Rec: 01/17/21 14:17 LRN [id number]) Current Condition History of Current Condition Onset Date 11/2020 Current Complaints Pelvic Pain History of Current Condition with 3rd baby and having pelvic pain. PF hurts all the time in all positions. Pain is in the pelvic floor and lower left side of the back. Pt is 25 weeks along and is planning a . Due date is 05/04/21. Has only found IBP medication to be helpful, tried ice, heat and donut pillow, without relief. No history of urinary leakage or constipation. Onse of back pain started with . She has had general middle LBP occasionally prior to . Had pelvic pain with 2nd at end of that resolved after . Prior Treatments and Tests None Future Testing and Treatments Planned of date unknown (due 05/04/21) Treatment Goals Patient/Caregiver Goals Goal is to relieve as much pain as possible. 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 Baseline Function- Recreation/Hobbies Exercised in gym 4x/week and ran. 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 Functional Limitations- Recreation/ Walking at most 1/4 mile, must Hobbies stop due to pain. Personal Factors Other Personal Factors That May Effect 2 small children (ages 4 & 1) Therapy/Recovery at home. Works 3 days/week in [employer], in the [employer], works in [employer] sitting in chair all day. PT-OP-C Subjective Start: 01/10/21 17:22 Freq: Status: Active Protocol: Document 02/14/21 08:12 LRN (Rec: 02/14/21 09:53 LRN [id number]) OP-PT Subjective Patient Comments Patient Comments States it has gotten better. Pain is less intense. Pain with getting out of bed and with sit<>stand at night. OP-PT Pain Assessment Pain Assessment Grid Paper Pain Assessment Grid Completed No Location L low back Pain Location Details L Low back Intensity 3 Pain Aggravating Factors Changing Position,Activity PT-OP-I Pelvic Floor Start: 01/10/21 17:22 Freq: Status: Active Protocol: Document 01/17/21 12:47 LRN (Rec: 01/17/21 14:17 LRN [id number]) Pelvic Floor Assessment Bowel Bowel Movement Frequency 1x/day or every other day. [place] Stool Chart Comments Bowel types are 3 & 4 Comments Pelvic Floor Comments Labia Majora & Minora, Superficial vaginal muscles - tenderness, trigger points and muscle guarding present. PT-OP-J Posture/Palpation/Skin Start: 01/10/21 17:22 Freq: Status: Active Protocol: Document 01/17/21 12:47 LRN (Rec: 01/17/21 14:17 LRN [id number]) Posture Evaluation Position Standing Head/C-Spine Posture Forward Head T-Spine Posture Flattened L-Spine Posture Increased Lordosis Pelvis Posture Anteriorly Tilted Knee Posture (L) Genu Valgus,(R) Genu Valgus Ankle/Foot Posture (L) Pronated,(R) Pronated Comments Posture Comments R foot pronates more than L. Pt sits leaning to the L with R leg crossed of the L leg. Palpation Assessment Location Hip AD tendons Palpation Location Hip AD tendons, R> L Palpation Findings Tenderness,Trigger Point L Low Back Palpation Location L low back and gluteals Palpation Details L PSIS is anterior (deep) in standing: L Iliac Crest is low. R scapula is low. Pain at L Piriformis PT-OP-K Range of Motion Start: 01/10/21 17:22 Freq: Status: Active Protocol: Document 01/24/21 09:03 LRN (Rec: 01/24/21 15:52 LRN [id number]) Hip Goniometric Range of Motion Hip Left Passive Testing Position Supine Internal Rotation 30 External Rotation 85 Right Passive Testing Position Supine Internal Rotation 30 External Rotation 85 PT-OP-M Strength Start: 01/10/21 17:22 Freq: Status: Active Protocol: Document 01/17/21 12:47 LRN (Rec: 01/17/21 14:17 LRN [id number]) Trunk Strength Trunk Manual Muscle Testing Testing Position Supine Core Stabilization Pt is not able to maintain core stability with MMT of hips Hip Strength Hip Manual Muscle Testing Right Flexion (L2) 2+ Poor+ Abduction 2+ Poor+ Adduction 1 Trace External Rotation 3 Fair Internal Rotation 3 Fair Comments PF pain with all leg movememts . Left Flexion (L2) 2+ Poor+ Abduction 2+ Poor+ Adduction 1 Trace External Rotation 3 Fair Internal Rotation 3 Fair Comments PF pain worse with hip flexion (L>R) PF pain with all leg movememts . PT-OP-Q Treatments Start: 01/10/21 17:22 Freq: Status: Active Protocol: Document 02/14/21 08:12 LRN (Rec: 02/14/21 09:53 LRN [id number]) Therapeutic Exercises Sitting Exercises Hip AB Sitting Exercise Name Hip AB ([place] BKFO) Side bilateral Equipment Used Lev 2 TB Reps/Minutes 10x 3 Standing Exercises Wall Abdominal Isometric Standing Exercise Name Wall Slide with back against wall Reps/Minutes V. cuing and phys cuing to neutral back positioning. Posture training Standing Exercise Name Posture training standing against wall Reps/Minutes 2 Other Exercises Child's Pose Other Exercise Name Child's Pose Reps/Minutes 3' Comments V & phs cuing needed for most comfortable posiitioning Cat/Cow Other Exercise Name Cat/Cow Reps/Minutes 3' Comments Phys cuing during cowportion to PPT in LB Therapeutic Activity Therapeutic Activity Rolling Name Rolling Reps/Minutes 7' Comments Attempted several different ways of posturing patient and using mobilization with movement to roll the pt without pain. Found compression of R SIJ helped reduce R LBP. Self-Care/Home Management Treatment Education Patient Education Home Exercise Program Other Education Educated pt in proper body mechanics and standing posture to counter act effects of body changes with . Activities Self-Care/Home Management Activities Issued & reviewed HEP: Isometric Hip AB Standing Smith slides Taina's Pose for low back/PF stretch Cat/Camel PT-OP-T Assessment and Plan Start: 01/10/21 17:22 Freq: Status: Active Protocol: Document 02/14/21 08:12 LRN (Rec: 02/14/21 09:53 LRN [id number]) Physical Therapy Assessment Goals Three Impairment L LBP with transfers (rated 7/ 10) Short Term Goal (STG) Pt will be independent with a hip stabilization and flexibility ex program. STG Duration 01/16/21 (02/04/21: Met for sidelie ex's) Detention Goal (LTG) Decrease L LBP with transfers (initial 7/10). (02/04/21: LLBP is 5/10) LTG Duration 04/27/21 (02/04/21: MET GOAL) Two Impairment PF pain in all positions ( rated 9/10) Short Term Goal (STG) Pt will be educated & independent in a PF/core strengthening home program. STG Duration 02/22/21 (01/24/21: Progressed ) Detention Goal (LTG) Relieve Pelvic Floor pain as possible, with pt able to tolerate sleeping on sides instead of on the back as her progresses. LTG Duration 04/27/21 (02/04/21: MET GOAL) One Impairment Pt lacks self care HEP Short Term Goal (STG) Pt will be educated in proper transfer and pain management techniques. STG Duration 01/25/21 (01/24/21: MET GOAL) Detention Goal (LTG) Pt will be educated in proper posturing to counteract postural changes with . LTG Duration 02/08/21 (02/15/21: MET GOAL) Progress Towards Goals Progress Comments Goal #1 MET Assessment Summary Assessment Pt pain is lessening with use of SI stabilization exers (hip AB). Pain is worse in bed when rolling due to hypermobility of R SIJ; therefore pt found relief with SIJ compression during rolling. Further SIJ stabilization would help to lessen pain with functional mobility of rolling in bed. Pt found relief of LBP with flexion stretches. Physical Therapy Plan Frequency and Duration Frequency of Treatment 1x/Week Plan of Care Start Date 01/17/21 Plan of Care End Date 04/27/21 Next Visit Focus/Plan Next Note Type Discharge Summary Next Visit Plan 1 more visits for review & placement on HEP (review: Wall slides, trunk rotation, cat/ camel & child pose stretch). Start pt on PF stretch (Child' s Pose, Squats). Recheck HEP issued of hip IR stretches and general stretches ( educate for at work/desk). Discuss functional mobility of rolling in bed to minimize LBP.
--- NOTE | 2021-02-21 09:27 | PT-OP ANOTE ---
Pt DNS, message left notifying pt of missed appts and that no further appts exist. Pt to call back for either DC or reschedule for final visit and instructions.
--- NOTE | 2021-02-21 09:33 | PT-OP ANOTE ---
Pt called back to notify of next appt 02/25/21 @ 9am.
--- NOTE | 2021-02-25 09:10 | PT-OP ANOTE ---
CX, has been really sick
--- NOTE | 2021-03-21 15:28 | PT-OP ANOTE ---
Per telephone conversation the pt reports she has canceled all her remaining appointments due to her being too far along and just is not able to make it to therapy. Pt requests DC from therapy.
--- NOTE | 2021-03-21 15:37 | PT.OPDS ---
Current Diagnoses Other female genital prolapse (02/14/21) Other specified related conditions, second trimester (02/14/21) Pelvic and perineal pain (02/14/21) Visit Care Team Role Provider Type Doctor MD [place]ten Primary Care Provider Non-Staff Specialty: Medical Address: Phone: Fax: Email: Adri Mccormack MD Attending Provider Physician Family Provider Referring Provider Specialty: CYBER DEFENSE ANALYST Address: [address] [place] [address], [id number] Email: [email or web address] Visit Number Visit Number 4 Discharge Summary PT-OP-B Current Condition Start: 01/10/21 17:22 Freq: Status: Active Protocol: Document 01/17/21 12:47 LRN (Rec: 01/17/21 14:17 LRN [id number]) Current Condition History of Current Condition Onset Date 11/2020 Current Complaints Pelvic Pain History of Current Condition with 3rd baby and having pelvic pain. PF hurts all the time in all positions. Pain is in the pelvic floor and lower left side of the back. Pt is 25 weeks along and is planning a . Due date is 05/04/21. Has only found IBP medication to be helpful, tried ice, heat and donut pillow, without relief. No history of urinary leakage or constipation. Onse of back pain started with . She has had general middle LBP occasionally prior to . Had pelvic pain with 2nd at end of that resolved after . Prior Treatments and Tests None Future Testing and Treatments Planned of date unknown (due 05/04/21) Treatment Goals Patient/Caregiver Goals Goal is to relieve as much pain as possible. 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 Baseline Function- Recreation/Hobbies Exercised in gym 4x/week and ran. 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 Functional Limitations- Recreation/ Walking at most 1/4 mile, must Hobbies stop due to pain. Personal Factors Other Personal Factors That May Effect 2 small children (ages 4 & 1) Therapy/Recovery at home. 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 PT-OP-C Subjective Start: 01/10/21 17:22 Freq: Status: Active Protocol: Document 03/21/21 15:30 LRN (Rec: 03/21/21 15:37 LRN [id number]) OP-PT Subjective Patient Comments Patient Comments Per telephone conversation the pt no longer wants to attend therapy because she is too far along. Requests discharge from therapy. PT-OP-I Pelvic Floor Start: 01/10/21 17:22 Freq: Status: Active Protocol: Document 01/17/21 12:47 LRN (Rec: 01/17/21 14:17 LRN [id number]) Pelvic Floor Assessment Bowel Bowel Movement Frequency 1x/day or every other day. [place] Stool Chart Comments Bowel types are 3 & 4 Comments Pelvic Floor Comments Labia Majora & Minora, Superficial vaginal muscles - tenderness, trigger points and muscle guarding present. PT-OP-J Posture/Palpation/Skin Start: 01/10/21 17:22 Freq: Status: Active Protocol: Document 01/17/21 12:47 LRN (Rec: 01/17/21 14:17 LRN [id number]) Posture Evaluation Position Standing Head/C-Spine Posture Forward Head T-Spine Posture Flattened L-Spine Posture Increased Lordosis Pelvis Posture Anteriorly Tilted Knee Posture (L) Genu Valgus,(R) Genu Valgus Ankle/Foot Posture (L) Pronated,(R) Pronated Comments Posture Comments R foot pronates more than L. Pt sits leaning to the L with R leg crossed of the L leg. Palpation Assessment Location Hip AD tendons Palpation Location Hip AD tendons, R> L Palpation Findings Tenderness,Trigger Point L Low Back Palpation Location L low back and gluteals Palpation Details L PSIS is anterior (deep) in standing: L Iliac Crest is low. R scapula is low. Pain at L Piriformis PT-OP-K Range of Motion Start: 01/10/21 17:22 Freq: Status: Active Protocol: Document 01/24/21 09:03 LRN (Rec: 01/24/21 15:52 LRN [id number]) Hip Goniometric Range of Motion Hip Left Passive Testing Position Supine Internal Rotation 30 External Rotation 85 Right Passive Testing Position Supine Internal Rotation 30 External Rotation 85 PT-OP-M Strength Start: 01/10/21 17:22 Freq: Status: Active Protocol: Document 01/17/21 12:47 LRN (Rec: 01/17/21 14:17 LRN [id number]) Trunk Strength Trunk Manual Muscle Testing Testing Position Supine Core Stabilization Pt is not able to maintain core stability with MMT of hips Hip Strength Hip Manual Muscle Testing Right Flexion (L2) 2+ Poor+ Abduction 2+ Poor+ Adduction 1 Trace External Rotation 3 Fair Internal Rotation 3 Fair Comments PF pain with all leg movememts . Left Flexion (L2) 2+ Poor+ Abduction 2+ Poor+ Adduction 1 Trace External Rotation 3 Fair Internal Rotation 3 Fair Comments PF pain worse with hip flexion (L>R) PF pain with all leg movememts . PT-OP-T Assessment and Plan Start: 01/10/21 17:22 Freq: Status: Active Protocol: Document 03/21/21 15:30 LRN (Rec: 03/21/21 15:37 LRN [id number]) Physical Therapy Assessment Goals Three Impairment L LBP with transfers (rated 7/ 10) Short Term Goal (STG) Pt will be independent with a hip stabilization and flexibility ex program. STG Duration 01/16/21 (03/21/21: NOT MET due to early discharge) Top Lift Compresser Goal (LTG) Decrease L LBP with transfers (initial 7/10). (02/04/21: LLBP is 5/10) LTG Duration 04/27/21 (02/04/21: MET GOAL) Two Impairment PF pain in all positions ( rated 9/10) Short Term Goal (STG) Pt will be educated & independent in a PF/core strengthening home program. STG Duration 02/22/21 (03/21/21: NOT MET due to early discharge) Retirement Goal (LTG) Relieve Pelvic Floor pain as possible, with pt able to tolerate sleeping on sides instead of on the back as her progresses. LTG Duration 04/27/21 (02/04/21: MET GOAL) One Impairment Pt lacks self care HEP Short Term Goal (STG) Pt will be educated in proper transfer and pain management techniques. STG Duration 01/25/21 (01/24/21: MET GOAL) Retirement Goal (LTG) Pt will be educated in proper posturing to counteract postural changes with . LTG Duration 02/08/21 (02/15/21: MET GOAL) Assessment Summary Assessment Pt has met most of her goals. Therapy for final hip stabilization, flexibility ex and a PF/core strengthening home program was not addressed . Physical Therapy Plan Discharge Physical Therapy Discharge Reasons Patient Request Discharge Comments Pt is choosing to not come for more therapy because she feels she is too far along and finds attending PT difficult. Thank you for your referral. On her last attended visit her back pain was being managed by exercise and a SI Belt. No further therapy is planned, pt is being discharged from therapy.
== END 2021-03-22 07:43 | disposition home or self-care (01) ==
LOC: PHYS 09:00
PROVIDERS: Family Provider Specialist; Referring Provider Specialist; Visit Provider Specialist
DX: O26.892 Other specified pregnancy related conditions, second trimester (principal); R10.2 Pelvic and perineal pain; N81.89 Other female genital prolapse
CPT/HCPCS: 97110; 97162; 97530; 97535

== ENCOUNTER 2021-03-21 19:22 | Outpatient (CLI) | payer OTHER, SELFPAY | END 2021-03-21 20:00 | disposition home or self-care (01) | LOC: LABOR 19:32 → OB 03-22 12:17 | PROVIDERS: Family Provider Specialist; Referring Provider Obstetrics & Gynecology; Visit Provider Obstetrics & Gynecology | DX: O26.893 Other specified pregnancy related conditions, third trimester (principal); N89.8 Other specified noninflammatory disorders of vagina; M54.9 Dorsalgia, unspecified; Z3A.35 35 weeks gestation of pregnancy | CPT/HCPCS: 59025; G0378; G0379 ==

== ENCOUNTER → 2021-03-28 16:50 | Outpatient (CLI) | payer OTHER, SELFPAY ==
[2021-03-30 16:08] LABS: Strep Grp B PCR NEG for Grp B Strep
== END ==
PROVIDERS: Family Provider Specialist; Visit Provider Specialist
DX: Z34.83 Encounter for supervision of other normal pregnancy, third trimester (principal); Z3A.35 35 weeks gestation of pregnancy
CPT/HCPCS: 87653

== ENCOUNTER 2021-04-18 11:49 | Observation (INO) | payer OTHER, SELFPAY ==
--- NOTE | 2021-04-18 12:02 | P.TNLD_ITS ---
Visit Information Visit Information Date of evaluation: 04/18/21 Primary OB Provider: Adri Mccormack Reason for Evaluation: Yes non-stress test Comments/Additional reasons for admission: Low heart rate heard on Ob exam [facility] Medical History Abnormal Pap smear of cervix (~2017) Anemia (~2013) Healthy adult Surgical History Anesthesia H/O: section History of section [place] teeth removed (~2013) Family History Grandfather Stroke Heart disease Pacemaker Mother No problems noted. Father Hyperlipidemia Grandmother No problems noted. Grandfather Alcoholic Suicide Grandmother No problems noted. Sister Uterine fibroid History of partial hysterectomy Social History (System 01/10/21 @ 08:16 by Ronda Pugh) marital status: number of children: 2 household members: spouse and children lives independently: Yes caregiver/support person: No housing: house pets and animals: Yes (2 dogs, safe. ) education level: college (AA degree, working on Bachelor's in Education. ) occupational status: employed ([employer], active duty , office job.) current occupational exposures/hazards: No renetta/gnosticism: Faith special renetta needs: No seatbelt use: always Smoking Status: Former smoker (x 6 months during training. Quit 2016.) Tobacco: How many years used: 1 quit status: has quit before second hand exposure: No alcohol intake: former (A glass of wine occasionally. ) substance use type: does not use during the past year weight has: remained stable well-balanced diet: daily or most days (Currently nausea is making it challenging. ) daily servings fruits/ve or more times/day caffeine: No (Quit w . ) Type(s) of exercise: walking (treadmill at home. ), weight lifting and other (was going to gym every day before COVID closure. ) frequency: daily duration: 45-60 minutes/day Evaluation Evaluation Baseline heart rate: 120 Variability: Moderate (11-25) monitor accelerations: Present Monitor Decelerations: Absent Contraction Frequency (minutes): 0 Category of Tracing: Reactive Status: Category l Diagnosis, Plan/Disposition Final Diagnosis (1) Bradycardia found on measurement of baseline heart rate: Status: Acute Plan/Disposition Plan: Reactive nonstress test and normal biophysical profile with normal fluid. Patient is reassured. Precautions reviewed. in 1 week OB Disposition: home
== END 2021-04-18 12:15 | disposition home or self-care (01) ==
LOC: LABOR 11:57
PROVIDERS: Admitting Provider Specialist; Family Provider Specialist; Referring Provider Specialist; Visit Provider Specialist
DX: O36.8390 Maternal care for abnormalities of the fetal heart rate or rhythm, unspecified trimester, not applicable or unspecified (principal)
CPT/HCPCS: 59025; G0378; G0379

== ENCOUNTER 2021-04-18 22:54 | Observation (INO) | payer OTHER, SELFPAY ==
--- NOTE | 2021-04-18 23:25 | P.TNLD_ITS ---
Visit Information Visit Information Date of evaluation: 04/18/21 Primary OB Provider: Adri Mccormack On-call OB Provider: Percy Sandhu Reason for Evaluation: Yes rule out labor Comments/Additional reasons for admission: Decreased movement and low FHR baseline. Patient was seen for a JUSTINO visit earlier today and baseline FHR found to be 115 BPM. BPP in office normal as was NST this afternoon. Baby has only m glenny 6 times over two hours this evening when the baby is typically active and the patient was advised to come in due to her concerns re: baby's wellbeing. No contractions. No bleeding or leakage of fluid PV. Repeat C/S (#3) schedued for 04/25/2021. [facility] Medical History (Updated 04/18/21 @ 12:05 by Adri Mccormack MD) Abnormal Pap smear of cervix (~2017) Anemia (~2013) Healthy adult Surgical History (Updated 04/18/21 @ 23:41 by Percy Sandhu MD) Anesthesia H/O: section History of section [place] teeth removed (~2013) Family History Grandfather Stroke Heart disease Pacemaker Mother No problems noted. Father Hyperlipidemia Grandmother No problems noted. Grandfather Alcoholic Suicide Grandmother No problems noted. Sister Uterine fibroid History of partial hysterectomy Social History (System 01/10/21 @ 08:16 by Ronda Pugh) marital status: number of children: 2 household members: spouse and children lives independently: Yes caregiver/support person: No housing: house pets and animals: Yes (2 dogs, safe. ) education level: college (AA degree, working on Bachelor's in Education. ) occupational status: employed ([employer], active duty , office job.) current occupational exposures/hazards: No renetta/catholic: Restorationism special rneetta needs: No seatbelt use: always Smoking Status: Former smoker (x 6 months during training. Quit 2016.) Tobacco: How many years used: 1 quit status: has quit before second hand exposure: No alcohol intake: former (A glass of wine occasionally. ) substance use type: does not use during the past year weight has: remained stable well-balanced diet: daily or most days (Currently nausea is making it challenging. ) daily servings fruits/ve or more times/day caffeine: No (Quit w . ) Type(s) of exercise: walking (treadmill at home. ), weight lifting and other (was going to gym every day before COVID closure. ) frequency: daily duration: 45-60 minutes/day Review of Systems Review of Systems ROS: Yes All systems reviewed with the patient and are negative except as otherwise documented Evaluation Evaluation Baseline heart rate: 115 Variability: Moderate (11-25) monitor accelerations: Present Monitor Decelerations: Absent Category of Tracing: Reactive Status: Category l Diagnosis, Plan/Disposition Final Diagnosis (1) : Status: Acute (2) H/O: section: Status: Acute (3) Bradycardia found on measurement of baseline heart rate: Status: Acute Plan/Disposition Plan: Provided reassurance that 5% of infants maintain baseline FHR below 120 BPM and are entirely normal, healthy pregnancies. Advised to continue close observation of movement and to return/call with any questions or concerns. I will notify her attending OB and the weekend on-call OB provider re: the ongoing baseline HR and need for close follow-up necessary until delivered. OB Disposition: home
== END 2021-04-18 23:40 | disposition home or self-care (01) ==
PROVIDERS: Admitting Provider Specialist; Family Provider Specialist; Referring Provider Specialist; Visit Provider Specialist
DX: O36.8330 Maternal care for abnormalities of the fetal heart rate or rhythm, third trimester, not applicable or unspecified (principal); Z3A.38 38 weeks gestation of pregnancy; Z98.891 History of uterine scar from previous surgery
CPT/HCPCS: 59025; 59050; 84112; G0378; G0379

== ENCOUNTER 2021-04-20 23:33 | Outpatient (CLI) | payer OTHER, SELFPAY ==
--- NOTE | 2021-04-21 12:41 | P.TNLD_ITS ---
Visit Information Visit Information Date of evaluation: 04/21/21 Primary OB Provider: Adri Mccormack On-call OB Provider: Lyndsey Chavez Reason for Evaluation: Yes non-stress test Comments/Additional reasons for admission: This patient is a 25yo @38+3 presenting for evaluation for decreased movement and constipation. Denies LOF, symptomatic ctx, VB. Hx 2x CS. Vital Signs Vital Signs: 123/74, HR 90 PFSH Medical History (Updated 04/18/21 @ 12:05 by Adri Mccormack MD) Abnormal Pap smear of cervix (~2017) Anemia (~2013) Healthy adult Surgical History (Updated 04/18/21 @ 23:41 by Percy Sandhu MD) Anesthesia H/O: section History of section [place] teeth removed (~2013) Family History Grandfather Stroke Heart disease Pacemaker Mother No problems noted. Father Hyperlipidemia Grandmother No problems noted. Grandfather Alcoholic Suicide Grandmother No problems noted. Sister Uterine fibroid History of partial hysterectomy Social History (System 01/10/21 @ 08:16 by Ronda Pugh) marital status: number of children: 2 household members: spouse and children lives independently: Yes caregiver/support person: No housing: house pets and animals: Yes (2 dogs, safe. ) education level: college (AA degree, working on Bachelor's in Education. ) occupational status: employed ([employer], active duty , office job.) current occupational exposures/hazards: No renetta/hoahaoism: Taoism special renetta needs: No seatbelt use: always Smoking Status: Former smoker (x 6 months during training. Quit 2016.) Tobacco: How many years used: 1 quit status: has quit before second hand exposure: No alcohol intake: former (A glass of wine occasionally. ) substance use type: does not use during the past year weight has: remained stable well-balanced diet: daily or most days (Currently nausea is making it challenging. ) daily servings fruits/ve or more times/day caffeine: No (Quit w . ) Type(s) of exercise: walking (treadmill at home. ), weight lifting and other (was going to gym every day before COVID closure. ) frequency: daily duration: 45-60 minutes/day Evaluation Evaluation Baseline heart rate: 115 Variability: Moderate (11-25) monitor accelerations: Present Monitor Decelerations: Absent Contraction Frequency (minutes): 13 Category of Tracing: Reactive Status: Category l Comments: Per nursing, patient feels movement on L&D, copious movement palpated on abdomen by nursing staff, cervix closed, abdomen non- tender. Diagnosis, Plan/Disposition Plan/Disposition Plan: Reassuring NST, patient reassured on L&D by improved movement, closed cervix. Patient for rest, PO hydration, labor precautions discussed. OB Disposition: home
== END 2021-04-21 00:40 | disposition home or self-care (01) ==
LOC: LABOR 23:37 → OB 04-22 13:32
PROVIDERS: Family Provider Specialist; Referring Provider Obstetrics & Gynecology; Visit Provider Obstetrics & Gynecology
DX: O36.8130 Decreased fetal movements, third trimester, not applicable or unspecified (principal); O26.893 Other specified pregnancy related conditions, third trimester; K59.00 Constipation, unspecified; Z3A.38 38 weeks gestation of pregnancy
CPT/HCPCS: 59025; G0378; G0379

== ENCOUNTER 2021-04-25 06:56 | Inpatient (IN) | payer OTHER, SELFPAY ==
--- NOTE | 2021-04-25 07:51 | PM.PREOP ---
Pre-operative Note COVID-19 COVID-19 status: Result pending Result date/Date tested (Pos, Neg/Pending): 04/25/21 Interval Note History & Physical reviewed/Exam performed by Physician: Yes Changes to H&P: No
--- NOTE | 2021-04-25 07:52 | PM.OBHP.1 ---
OB HPI Date/Time Date of admission: 04/25/21 Date Patient Seen: 04/25/21 Time Patient Seen: 07:52 History of Present Condition Chief complaint: REPEAT : 3 Para: 2 Estimated Date of Delivery: 05/02/21 Estimated Gestational Age (weeks): 39 Narrative: Haleigh Padilla is a 25 year old female admitted for repeat section Indications Operative indications ( section): previous uterine surgery History of Present care: good care, initiated at week # (7), number of visits (9) and pounds weight gain (30) Dating criteria: LMP confirmed by 1st trimester US Ultrasounds: normal mid trimester US Obstetrical complications: none Medical complications: none Preadmission Labs Blood type: A (+) positive -: Antibody screen: negative, GBS status: negative, HBsAG: negative, HIV: negative and RPR/VDLR: negative -: Chlamydia screen: not detected and Gonorrhea screen: not detected -: Rubella: immune and Varicella: immune HCAB: negative Quad screen: Normal 1 hr GTT: 127 Prior (ies) History: 04/24/2016 8 lb 4 oz male section 05/24/2019 8 lb 1 oz male Evaluation Evaluation Baseline heart rate: 120 Variability: Moderate (11-25) monitor accelerations: Present Monitor Decelerations: Absent Contraction Frequency (minutes): 0 Category of Tracing: Reactive Status: Category l PFSH Medical History (Updated 04/18/21 @ 12:05 by Adri Mccormack MD) Abnormal Pap smear of cervix (~2017) Anemia (~2013) Healthy adult Surgical History (Updated 04/18/21 @ 23:41 by Percy Sandhu MD) Anesthesia H/O: section History of section [place] teeth removed (~2013) Family History Grandfather Stroke Heart disease Pacemaker Mother No problems noted. Father Hyperlipidemia Grandmother No problems noted. Grandfather Alcoholic Suicide Grandmother No problems noted. Sister Uterine fibroid History of partial hysterectomy Social History (System 01/10/21 @ 08:16 by Ronda Pugh) marital status: number of children: 2 household members: spouse and children lives independently: Yes caregiver/support person: No housing: house pets and animals: Yes (2 dogs, safe. ) education level: college (AA degree, working on Bachelor's in Education. ) occupational status: employed ([employer], active duty , office job.) current occupational exposures/hazards: No renetta/baptist: Baptism special renetta needs: No seatbelt use: always Smoking Status: Former smoker (x 6 months during training. Quit 2017.) Tobacco: How many years used: 1 quit status: has quit before second hand exposure: No alcohol intake: former (A glass of wine occasionally. ) substance use type: does not use during the past year weight has: remained stable well-balanced diet: daily or most days (Currently nausea is making it challenging. ) daily servings fruits/ve or more times/day caffeine: No (Quit w . ) Type(s) of exercise: walking (treadmill at home. ), weight lifting and other (was going to gym every day before COVID closure. ) frequency: daily duration: 45-60 minutes/day Meds Home Medications and Allergies Home Medications Medication Instructions Recorded Confirmed Type prenat.vits,parmjit,rhk-csyd-wmnxx 1 tab PO DAILY 09/17/20 04/18/21 History acetaminophen 500 mg capsule 1,000 mg PO Q6H PRN 10/03/20 04/18/21 History sertraline 50 mg tablet 50 mg PO DAILY #30 tab 02/13/21 04/18/21 Rx omeprazole 40 mg capsule,delayed 40 mg PO DAILY #30 cap 02/19/21 04/18/21 Rx release Allergies Allergy/AdvReac Type Severity Reaction Status Date / Time No Known Drug Allergies Allergy Verified 03/07/21 13:56 Review of Systems Review of Systems Narrative: Patient denies headaches, scotomata, epigastric pain. Good movement. No leakage of fluid. No contractions. ROS: Yes All systems reviewed with the patient and are negative except as otherwise documented Exam Vital Signs (past 8 hours): Blood pressure 112/67, pulse of 84, temperature 98.2 Narrative Exam Narrative: HEENT exam within normal limits. Lungs are clear to auscultation percussion. Heart is regular rate and rhythm no S3-S4 or murmurs. Abdomen is soft, nontender. Fetus is vertex. Extremities without edema and nontender. Objective Labs Result Diagrams: 04/25/21 07:30 Assessment and Plan Assessment and Plan Assessment and Plan narrative: 39 week gestation with 2 prior sections for repeat section
[2021-04-25 08:04] LABS: Add Manual Diff / Slide Review NO; Basophils Absolute Auto 100 /uL (0-100); Basophils Percent Auto 0.9 % (0-2); Eosinophils Absolute Auto 100 /uL (0-450); Eosinophils Percent Auto 0.8 % (2-4); Hematocrit 29.4 % (36-46); Hemoglobin 9.8 g/dL (12.0-16.0); Lymphocytes Absolute Auto 1700 /uL (1100-4500); Lymphocytes Percent Auto 20.1 % (25-40); Mean Corpuscular HGB Conc 33.2 % (30-36); Mean Corpuscular Hemoglobin 26.7 PG (26-34); Mean Corpuscular Volume 80.4 fL (80-100); Monocytes Absolute Auto 800 /uL (0-900); Neutrophils Absolute Auto 5900 /uL (1500-7000); Neutrophils Percent Auto 69.2 % (50-75); Platelet Count 233 X10^3/uL (150-400); Red Blood Cell Count 3.66 X10^6/uL (4.0-5.2); Red Cell Distribution Width 13.5 % (11.6-14.8); White Blood Cell Count 8.5 X10^3/uL (4.5-11.0)
[2021-04-25 09:36] LABS: COVID19 -Nasal RAPID Negative (Negative)
[2021-04-25] MEDS: CEFAZOLIN 1 GM VIAL 2 GM IV (10:00)
--- NOTE | 2021-04-25 10:16 | SUR.OPER ---
Supine on Padded OR bed, head on pillow, safety belt at thigh, arms secured on padded arm boards at <90 degrees abduction. Bump under right buttock. Legs uncrossed with pillow under knees, gel pad to heels, tape over blanket to lower legs.
--- NOTE | 2021-04-25 10:27 | SUR.OPER ---
Viable baby boy delivered at 1010. Placenta delivered. Cord blood tubes X2 and placenta given to L&D RN.
--- NOTE | 2021-04-25 10:34 | P.OP_ITS ---
Operative Date/Time/Diagnoses Date of procedure: 04/25/21 Time of procedure: 10:35 Pre-op diagnosis: 2 prior sections at 39 weeks for repeat section Post-op diagnosis: same Procedure & Clinicians Procedure: Repeat low-transverse section Same procedure as scheduled: Yes Indications: Term with 2 prior sections for repeat section Surgeon: Adri Mccormack Sales Representative Consultant: Percy Sandhu Anesthesia Type: Spinal Operative Notes Findings: Normal tubes, ovaries, and uterus. Viable male . Weighing 9 lb 1.8 oz. Apgars of 9 and 9 Closure Type: primary Specimen(s): none sent Applied: catheter (Keller) Estimated Blood Loss (mL): 450 Blood products transfused: none Procedure in detail: The patient was brought to the operating room where she underwent a spinal for anesthesia. She was placed in a supine position with a left lateral tilt. A Keller catheter was placed. Pulsatile stockings were placed and functional throughout the case. 2 g of Ancef were given IV prior to the incision. Warming was in place. The patient was prepped and draped in usual sterile fashion. A low transverse incision was made with a scalpel and the incision was carried down to the fascial layer which was incised transversely with scissors. The assistant distribution manager did his side of the incision. The midline attachments are superiorly and inferiorly. The rectus muscles were in the midline and the peritoneal incision was made with no damage to internal structures. The peritoneum was incised and superiorly and inferiorly. The incision was stretched with the surgeon and assistant distribution manager placing traction. Bladder blade was placed and a bladder flap was developed and the bladder held away from the lower uterine segment. An incision was made in the uterus with the scalpel and the incision was extended with stretching. The head was elevated out of the abdomen and with fundal pressure by the assistant distribution manager the baby was delivered. The infant was bulb suctioned for clear fluid and handed off to the warmer. Cord blood was collected. The placenta delivered spontaneously with traction. The uterus was cleaned with clean laps. The uterine incision was closed in 2 layers of 0 chromic suture the first a running locking layer the second an imbricating layer. The assistant distribution manager was helping to expose the incision. The gutters were cleaned of any remaining fluids and ovaries and tubes were observed to be normal. Adequate hemostasis was noted. The fascia layer was closed with 0 Vicryl suture with 2 stitches. The assistant distribution manager repairing half the incision with helping to retract and expose the incision for the other half. The incision was irrigated and adequate hemostasis noted. The incision was closed with interrupted 3-0 Vicryl sutures and then a subcuticular stitch of 4-0 Vicryl suture. Steri-Strips were placed. The uterus was massaged to remove any clots. The patient went to recovery room in good condition. Counts of instruments and sponges were correct. Dr. Sandhu was present throughout the case to assist with retraction, fundal pressure to deliver the , and suturing half the fascia. Complications: none Post-operative Condition: stable Disposition: other ( Center) Plan for aftercare: Routine post section care
[2021-04-25 10:46] VITALS: BP 122/63; PULSE 64; RESP 15; TEMP 36.3; O2SAT 100
[2021-04-25 10:51] VITALS: BP 129/69; PULSE 69; RESP 19; O2SAT 100
[2021-04-25 10:56] VITALS: BP 116/66; PULSE 69; RESP 16; O2SAT 99
[2021-04-25 11:06] VITALS: BP 119/66; PULSE 63; RESP 20; O2SAT 100
[2021-04-25 11:15] VITALS: BP 122/63; PULSE 61; RESP 16; TEMP 36.6; O2SAT 100
[2021-04-25] MEDS: LACTATED RINGERS 1,000 ML 100 ML IV (12:15)
--- NOTE | 2021-04-25 12:28 | SUR.PHASEI ---
Late entry: Pt arrived to PACU awake, no nausea no pain. Fundus checked revealed large amount of bloody drainage with large clots, fundus firm with massage ant 2 below umbilicus. Pt cleaned, new bed pads and juan francisco pads placed. Upon 2nd fundus check scant bloody drainage and no clots, fundus firm and still two below umbilicus. Pt transfered to room and left with RN in stable condition.
[2021-04-25 13:17] LABS: COVID19 - ADMIT (NP swab/PCR) Negative (Negative)
[2021-04-25] MEDS: METHYLERGONOVINE 0.2 MG TABLET PO (13:53)
[2021-04-25] MEDS: LANOLIN OINT 7 GM 1 APPLIC TOP (13:53)
[2021-04-25] MEDS: OXYCODONE IR 5 MG TABLET PO (13:53)
[2021-04-25] MEDS: KETOROLAC 30 MG/ML VIAL IV ×2 (16:33→22:23)
[2021-04-25] MEDS: SERTRALINE 50 MG TABLET PO (22:23)
[2021-04-26] MEDS: ACETAMINOPHEN 325 MG TABLET 650 MG PO (03:28)
[2021-04-26] MEDS: OXYCODONE IR 5 MG TABLET PO ×3 (03:28→14:16)
[2021-04-26] MEDS: KETOROLAC 30 MG/ML VIAL IV (03:28)
[2021-04-26 07:18] LABS: Add Manual Diff / Slide Review NO; Basophils Absolute Auto 0 /uL (0-100); Basophils Percent Auto 0.4 % (0-2); Eosinophils Absolute Auto 100 /uL (0-450); Eosinophils Percent Auto 0.9 % (2-4); Hematocrit 24.6 % (36-46); Lymphocytes Absolute Auto 1800 /uL (1100-4500); Lymphocytes Percent Auto 16.5 % (25-40); Mean Corpuscular HGB Conc 32.5 % (30-36); Mean Corpuscular Hemoglobin 26.4 PG (26-34); Mean Corpuscular Volume 81.4 fL (80-100); Monocytes Absolute Auto 1100 /uL (0-900); Monocytes Percent Auto 9.9 % (3-14); Neutrophils Absolute Auto 7800 /uL (1500-7000); Neutrophils Percent Auto 72.3 % (50-75); Platelet Count 193 X10^3/uL (150-400); Red Blood Cell Count 3.02 X10^6/uL (4.0-5.2); Red Cell Distribution Width 13.8 % (11.6-14.8); White Blood Cell Count 10.7 X10^3/uL (4.5-11.0)
--- NOTE | 2021-04-26 07:35 | PM.OBDS.1 ---
Discharge Providers Provider Date of admission: 04/25/21 06:56 Discharge Date: 04/26/21 Consults: 04/25/21 11:55 Consult to [employer] Learning Support Teacher Routine Comment: Discharge provider: Adri Mccormack MD Summary Hospital Course Date Patient Seen: 04/26/21 Time Patient Seen: 07:35 Diagnoses: 39 week gestation with 2 prior sections Hospital Course: Patient underwent a repeat low-transverse section. She is urinating without difficulty. She is tolerating a regular diet. She is ambulatory. She is passing gas. She is breast-feeding without difficulty. Her pain is under control. Peripartum Data Delivery Method: Section (Repeat) complications: none 1: Gender: Male Disposition of : home Discharge Diagnosis (1) Delivery by section: Status: Acute Status at Discharge Cognitive/behavioral status at discharge: oriented Functional status at discharge: independent ambulation Overall status at discharge: patient is progressing back to baseline Time Spent with Patient Time attestation: Total time spent providing and/or coordinating discharge services: Time spent: Less than 30 minutes Objective Labs Result Diagrams: 04/26/21 06:41 Labs: Laboratory Results - last 24 hr 04/25/21 04/25/21 04/25/21 07:30 07:30 07:30 WBC 8.5 RBC 3.66 L Hgb 9.8 L Hct 29.4 L MCV 80.4 MCH 26.7 MCHC 33.2 RDW 13.5 Plt Count 233 Neut % (Auto) 69.2 Lymph % (Auto) 20.1 L Hart % (Auto) 9.0 Eos % (Auto) 0.8 L Baso % (Auto) 0.9 Neut # (Auto) 5900 Lymph # (Auto) 1700 Hart # (Auto) 800 Eos # (Auto) 100 Baso # (Auto) 100 SARS-CoV-2 (PCR) Negative Blood Type A Positive Antibody Screen Negative 04/25/21 04/26/21 09:15 06:41 WBC 10.7 RBC 3.02 L Hgb 8.0 L Hct 24.6 L MCV 81.4 MCH 26.4 MCHC 32.5 RDW 13.8 Plt Count 193 Neut % (Auto) 72.3 Lymph % (Auto) 16.5 L Hart % (Auto) 9.9 Eos % (Auto) 0.9 L Baso % (Auto) 0.4 Neut # (Auto) 7800 H Lymph # (Auto) 1800 Hart # (Auto) 1100 H Eos # (Auto) 100 Baso # (Auto) 0 SARS-CoV-2 (PCR) Negative Blood Type Antibody Screen Exam Vital Signs (past 8 hours): Blood pressure 106/70, temperature 98.7?, pulse is of 98 Oxygen Delivery Method Room Air Narrative Exam Narrative: Abdomen is soft, nontender. Uterus is firm, at U, nontender. Dressing is clean, dry, intact. Mild lochia. Extremities without edema and nontender. Patient's blood type is A positive. She is rubella immune. She received the Tdap in the 3rd trimester. Discharge Plan Discharge Plan Patient Disposition: Home Discharge orders & Medications Prescriptions: New oxycodone-acetaminophen 5-325 mg Tablet 1 tab PO Q4HR PRN (Reason: Pain, Severe (7-10)) Qty: 30 RF: 0 ibuprofen 600 mg Tablet 600 mg PO Q6H PRN (Reason: Fever/Mild Pain (1-3)) Qty: 30 RF: 0 Continued sertraline 50 mg tablet 50 mg PO DAILY Qty: 30 RF: 3 prenat.vits,parmjit,nna-bifw-yowse Tablet 1 tab PO DAILY RF: 0 acetaminophen 500 mg capsule 1,000 mg PO Q6H MDD 1000 PRN (Reason: Abdominal Discomfort) RF: 0 omeprazole 40 mg capsule,delayed release(DR/EC) 40 mg PO DAILY Qty: 30 RF: 4 Follow up/Referrals: Adri Mccormack MD [Family Provider] - 1 Week (Aquacel removal) Diet/Activity/Treatments Diet: Regular Activity: Do not lift over 20 lb for 6 weeks, nothing in vagina for 4 weeks Skin/Wound/Dressing Care Report to your healthcare provider any signs of infection, such as:: chills, fever and increased pain
[2021-04-26] MEDS: FERROUS SULFATE 325 MG TABLET PO (10:18)
[2021-04-26] MEDS: IBUPROFEN 600 MG TABLET PO (10:18)
[2021-04-26] MEDS: DOCUSATE 250 MG CAPSULE PO (10:18)
[2021-04-26 13:50] VITALS: BP 119/72; PULSE 86; RESP 16; TEMP 36.7
== END 2021-04-26 14:45 | disposition home or self-care (01) | DRG 788 ==
PROVIDERS: Admitting Provider Specialist; Family Provider Specialist; Referring Provider Specialist; Visit Provider Specialist
PROC: 10D00Z1 Extraction of Products of Conception, Low, Open Approach (ICD-10-PCS; CPT 59514; principal; 2021-04-25 07:45)
DX: O34.219 Maternal care for unspecified type scar from previous cesarean delivery (principal); Z3A.39 39 weeks gestation of pregnancy; Z37.0 Single live birth; Z20.822 Contact with and (suspected) exposure to COVID-19
CPT/HCPCS: 36415; 59050; 59510; 59514; 85025; 86850; 86900; 86901; 87635; C9803; J0690; J1885; J2274; J2405; J2590

== ENCOUNTER 2022-10-29 11:13 | Emergency (ER) | payer OTHER, SELFPAY ==
[2022-10-29 11:18] VITALS: BP 113/67; PULSE 83; RESP 16; TEMP 36.1; O2SAT 98; BMI 29.2
--- NOTE | 2022-10-29 11:25 | DI.US.S_ITS ---
PROCEDURE: US PELVIC COMPLETE INDICATIONS: BLEEDING; POSITIVE HCG TECHNIQUE: Real-time scanning was performed of the pelvic organs, with image documentation. Additional endovaginal scanning was necessary due to incomplete visualization of the adnexal and endometrial structures by transabdominal scanning. COMPARISON: None. FINDINGS: Uterus: Uterus is anteverted and normal in size at 9.9 x 4.9 x 6.4 cm. The myometrium is homogeneous. The endometrium measures 14.5 mm combined thickness. No intrauterine gestational sac is present Ovaries: The right ovary measures 3.6 x 2.6 x 2.7 cm, with a calculated ovarian volume of 13.0 cc. The left ovary measures 1.5 x 3.4 x 1.9 cm, with a calculated ovarian volume of 5.3 cc. The ovaries have a normal sonographic appearance. There is a 1.9 x 1.2 x 1.6 cm ill-defined area with increased vascularity in the right ovary. The finding could represent early ectopic . Less than 12 ovarian follicles are seen in each ovaries. Other: A moderate amount of free pelvic fluid. IMPRESSION: 1. Endometrium is thickened. No intrauterine is present. 2. A 1.9 x 1.2 x 1.6 cm ill-defined area in the right ovary with increased vascularity. Cannot rule out early ectopic . A differential diagnosis is a corpus luteum. Please correlate with quantitative serum beta HCG. Follow-up imaging suggested as clinically needed. 3. There is moderate amount of free fluid in pelvis. The result was discussed with Dr. Ballesteros. We strive to produce accurate, complete, and clear reports of imaging services. To assist us in improving patient care, this report was composed using standard report templates and voice recognition software. Therefore, it may contain abnormal punctuation, insertions and/or omissions. Occasional wrong-word or sound-alike substitutions may occur. Though we review the report and make efforts to correct it, we do recommend that the report be read carefully in proper context to recognize any text inaccuracies. Dictated by: Tim Richard M.D. on 10/29/2022 at 11:49 Approved by: Tim Richard M.D. on 10/29/2022 at 11:55
--- NOTE | 2022-10-29 11:42 | ED.PREGNANCY ---
HPI - General Chief complaint: Vaginal Bleeding Stated complaint: 5 weeks pregna, cramping and bleeding as of 10am Time Seen by Provider: 10/29/22 11:28 History of Present Illness HPI Narrative: Patient is a 27-year-old female presenting to vaginal bleeding. She recently found out that she was . She went to the [facility] to have urinalysis and blood work. This morning she woke up she had severe cramping all across her lower abdomen. She wipes she noted some dark brown blood and then some bright blood. No painful or frequent urination. No back pain. She is feeling nauseous but no vomiting. No dizziness or lightheadedness. No problems with previous . Related Data Home Medications Medication Instructions Recorded Confirmed prenat.vits,parmjit,riy-rxei-pxkwp 1 tab PO DAILY 09/17/20 05/02/21 acetaminophen 500 mg capsule 1,000 mg PO Q6H PRN Abdominal 10/03/20 05/02/21 Discomfort Previous Rx's Medication Instructions Recorded sertraline 50 mg tablet 50 mg PO DAILY Depression #30 tabs 02/13/21 omeprazole 40 mg capsule,delayed 40 mg PO DAILY heart burn #30 caps 02/19/21 release ibuprofen 600 mg tablet 600 mg PO Q6H PRN Fever/Mild Pain 04/26/21 (1-3) #30 tabs Allergies Allergy/AdvReac Type Severity Reaction Status Date / Time No Known Drug Allergies Allergy Verified 03/07/21 13:56 Review of Systems Review of Systems ROS Unobtainable: All systems reviewed & are unremarkable except as noted in HPI and below Exam Initial Vital Signs Initial Vital Signs: Vital Signs Temperature 97.0 F L 10/29/22 11:18 Pulse Rate 83 10/29/22 11:18 Respiratory Rate 16 10/29/22 11:18 Blood Pressure 113/67 10/29/22 11:18 Pulse Oximetry 98 10/29/22 11:18 Oxygen Delivery Method 10/29/22 11:18 GENERAL: Alert pleasant 27-year-old female and in no acute distress. HEENT: Head atraumatic,EOMI, pupils reactive, face symmetric, moist mucous membranes CARDIOVASCULAR: Regular rate and rhythm without murmurs, rubs or gallops. RESPIRATORY: Breath sounds equal bilaterally, no wheezes rales or rhonchi. ABDOMEN: Soft, nontender. Normoactive bowel sounds all 4 quadrants. No guarding or rebound. : No CVA tenderness EXTREMITIES: Normal range of motion, no clubbing or edema. Neurovascularly intact NEUROLOGICAL: Alert and oriented x4. SKIN: Warm, dry, no laceration, no petechiae, no rashes or lesions. Course Orders Ordered: ED Orders 10/29/22 11:25 US pelvic complete Stat 10/29/22 12:05 ABO RH Type Stat Complete Blood Count AUTO DIFF Stat Comprehensive Metabolic Panel Stat HCG Quantitative /Beta subunit Stat Discontinued Medications Ondansetron HCl (Ondansetron 4 Mg Odt) 4 mg SL NOW ONE Stop: 10/29/22 12:10 Last Admin: 10/29/22 12:19 Dose: 4 mg Documented By: MATTHIEU Vital Signs Vital signs: Vital Signs - 8 hr 10/29/22 11:18 10/29/22 14:02 Temperature 97.0 F L Pulse Rate 83 75 Respiratory Rate 16 18 Blood Pressure 113/67 121/71 Pulse Oximetry 98 100 Oxygen Delivery Method Room Air Room Air MDM - OB/Uterine Contractions Lab Data Result diagrams: 10/29/22 12:05 10/29/22 12:05 Labs: Lab Results 10/29/22 10/29/22 10/29/22 Range/Units 12:05 12:05 12:05 WBC 5.4 (4.5-11.0) X10^3/uL RBC 4.44 (4.0-5.2) X10^6/uL Hgb 12.9 (12.0-16.0) g/dL Hct 38.3 (36-46) % MCV 86.3 (80-100) fL MCH 29.1 (26-34) PG MCHC 33.7 (30-36) % RDW 12.9 (11.6-14.8) % Plt Count 267 (150-400) X10^3/uL Neut % (Auto) 54.1 (50-75) % Lymph % (Auto) 34.3 (25-40) % [place] % (Auto) 9.7 (3-14) % Eos % (Auto) 1.1 L (2-4) % Baso % (Auto) 0.8 (0-2) % Neut # (Auto) 2900 (2802-8524) /uL Lymph # (Auto) 1900 (6966-3450) /uL [place] # (Auto) 500 (0-900) /uL Eos # (Auto) 100 (0-450) /uL Baso # (Auto) 0 (0-100) /uL Sodium 137 (137-145) mmol/L Potassium 4.0 (3.4-5.1) mmol/L Chloride 105 (98-107) mmol/L Carbon Dioxide 24 (22-32) mmol/L BUN 9 (7-17) mg/dL Creatinine 0.62 (0.52-1.04) mg/dL Estimated GFR > 60 (>60) mL/min BUN/Creatinine Ratio 14.5 (6-22) Glucose 84 (70-100) mg/dL Calcium 9.0 (8.4-10.2) mg/dL Total Bilirubin 0.8 (0.2-1.3) mg/dL AST 24 (14-36) IU/L ALT 18 (<35) IU/L Alkaline Phosphatase 71 (38-126) U/L Total Protein 7.8 (6.3-8.2) g/dL HCG, Quant 190.6 mIU/mL Blood Type A Positive Point of Care Testing Test Results Positive Urine Dip Bedside Urine Glucose Negative Bedside Urine Bilirubin - Negative Bedside Urine Ketone - Negative Urine Specific [place] 1.015 Bedside Urine Occult Blood - Negative Bedside Urine pH 7.0 Bedside Urine Protein - Negative Bedside Urine Urobilinogen - Negative Bedside Urine Nitrite - Negative Bedside Urine Leukocytes - Negative Esterase Imaging Data US - AUTO HIKER: Radiologist's Impression: Ultrasound Report Signed Patient: Haleigh Padilla MR#: [id number] : 1995 Acct:[id number] Age/Sex: 27 / F Date of Service: 10/29/22 Loc: ED Accession Number: [id number] ?? Procedure: US pelvic complete Ordering Provider: Vanda Ballesteros D.O. PROCEDURE:? US PELVIC COMPLETE ? INDICATIONS:? BLEEDING; POSITIVE HCG ? TECHNIQUE:? Real-time scanning was performed of the pelvic organs, with image documentation.? Additional endovaginal scanning was necessary due to incomplete visualization of the adnexal and endometrial structures by transabdominal scanning.? ? COMPARISON:? None. ? FINDINGS:? ?? Uterus:? Uterus is anteverted and normal in size at 9.9 x 4.9 x 6.4 cm. The myometrium is homogeneous. ? The endometrium measures 14.5 mm combined thickness.? No intrauterine gestational sac is present ? Ovaries:? The right ovary measures 3.6 x 2.6 x 2.7 cm, with a calculated ovarian volume of 13.0 cc. The left ovary measures 1.5 x 3.4 x 1.9 cm, with a calculated ovarian volume of 5.3 cc. The ovaries have a normal sonographic appearance.? There is a 1.9 x 1.2 x 1.6 cm ill-defined area with increased vascularity in the right ovary.? The finding could represent early ectopic .? Less than 12 ovarian follicles are seen in each ovaries. Other:? A moderate amount of free pelvic fluid. ? ? IMPRESSION:? ? 1. Endometrium is thickened. No intrauterine is present.? 2. A 1.9 x 1.2 x 1.6 cm ill-defined area in the right ovary with increased vascularity.? Cannot rule out early ectopic .? A differential diagnosis is a corpus luteum.? Please correlate with quantitative serum beta HCG.? Follow-up imaging suggested as clinically needed. 3. There is moderate amount of free fluid in pelvis.? ? The result was discussed with Dr. Ballesteros. ? We strive to produce accurate, complete, and clear reports of imaging services. To assist us in improving patient care, this report was composed using standard report templates and voice recognition software. Therefore, it may contain abnormal punctuation, insertions and/or omissions. Occasional wrong-word or sound-alike substitutions may occur. Though we review the report and make efforts to correct it, we do recommend that the report be read carefully in proper context to recognize any text inaccuracies. ? ? Dictated by: Tim Richard M.D. on 10/29/2022 at 11:49 ?? [facility] Narrative Medical decision making narrative: Patient is 27-year-old female presenting today with severe abdominal pain and vaginal bleeding. Ultrasound does not confirm IUP hCG today is 190. Free fluid is noted on her ultrasound along with questionable right sided ectopic. Patient is reexamined her abdomen remains soft. No significant tenderness over right side versus left side. Vitals are stable. No more rebleeding in the emergency department. 13:12 Dr. Marlene GARRETT updated patient's symptoms test results has reviewed ultrasound herself. At this time thinks that is probably a corpus luteum cyst and she has a relatively low HCG so unlikely ectopic. Nonetheless recommend outpatient follow-up with her office. Her office his putting a repeat hCG in for 48 hours. And they will help follow-up with her. 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 Dr. Rosario's office will call and follow-up with you on that number. *Continue to take medications as directed Tylenol 1000 mg every 6 hours if needed for [id number] pain *Follow up with your primary care provider in 2-3 days or call [phone] Rosario's office for follow-up *Return to ER if you should have increased pain vaginal bleeding, dizziness passing out or any new, worsening or concerning symptoms Prescriptions: No Action sertraline 50 mg tablet 50 mg PO DAILY Qty: 30 3RF Rx Instructions: Take 1/2 tab for 3 days then 1 full tab prenat.vits,parmjit,obr-wnlr-oigya Tablet 1 tab PO DAILY acetaminophen 500 mg capsule 1,000 mg PO Q6H MDD 1000 PRN (Reason: Abdominal Discomfort) omeprazole 40 mg capsule,delayed release(DR/EC) 40 mg PO DAILY Qty: 30 4RF ibuprofen 600 mg Tablet 600 mg PO Q6H PRN (Reason: Fever/Mild Pain (1-3)) Qty: 30 0RF Referrals: Leann Rosario MD [Physician] - Miscellaneous,MD Tracie [Primary Care Provider] - Stand Alone Forms: Patient Portal/API
[2022-10-29 12:18] LABS: Add Manual Diff / Slide Review NO; Basophils Absolute Auto 0 /uL (0-100); Basophils Percent Auto 0.8 % (0-2); Eosinophils Absolute Auto 100 /uL (0-450); Eosinophils Percent Auto 1.1 % (2-4); Hematocrit 38.3 % (36-46); Hemoglobin 12.9 g/dL (12.0-16.0); Lymphocytes Absolute Auto 1900 /uL (1100-4500); Lymphocytes Percent Auto 34.3 % (25-40); Mean Corpuscular HGB Conc 33.7 % (30-36); Mean Corpuscular Hemoglobin 29.1 PG (26-34); Mean Corpuscular Volume 86.3 fL (80-100); Monocytes Absolute Auto 500 /uL (0-900); Monocytes Percent Auto 9.7 % (3-14); Neutrophils Absolute Auto 2900 /uL (1500-7000); Neutrophils Percent Auto 54.1 % (50-75); Platelet Count 267 X10^3/uL (150-400); Red Blood Cell Count 4.44 X10^6/uL (4.0-5.2); Red Cell Distribution Width 12.9 % (11.6-14.8); White Blood Cell Count 5.4 X10^3/uL (4.5-11.0)
[2022-10-29] MEDS: ONDANSETRON 4 MG ODT SL (12:19)
[2022-10-29 12:34] LABS: Alanine Aminotransferase 18 IU/L (<35); Alkaline Phosphatase 71 U/L (38-126); Aspartate Aminotransferase 24 IU/L (14-36); BUN Creatinine Ratio 14.5 (6-22); Bilirubin Total 0.8 mg/dL (0.2-1.3); Blood Urea Nitrogen 9 mg/dL (7-17); Carbon Dioxide 24 mmol/L (22-32); Chloride 105 mmol/L (98-107); Estimated Glomerular Filt Rate > 60 mL/min (>60); Glucose 84 mg/dL (70-100); HEMOLYSIS < 15 (0-50); Sodium 137 mmol/L (137-145); Total Protein 7.8 g/dL (6.3-8.2)
[2022-10-29 12:50] LABS: HCG Quantitative /Beta subunit 190.6 mIU/mL
[2022-10-29 14:02] VITALS: BP 121/71; PULSE 75; RESP 18; O2SAT 100
[2022-10-31 16:38] LABS: Albumin 4.3 g/dL (3.5-5.0); Albumin Globulin Ratio 1.2 (1.0-2.8); Globulin 3.5 g/dL (1.7-4.1)
== END 2022-10-29 14:03 | disposition home or self-care (01) ==
PROVIDERS: Emergency Provider Emergency Medicine; Family Provider Specialist
DX: O20.0 Threatened abortion (principal); Z3A.01 Less than 8 weeks gestation of pregnancy
CPT/HCPCS: 36415; 76830; 76856; 80053; 81003; 81025; 84702; 85025; 86900; 86901; 99283; 99284

== ENCOUNTER → 2022-10-31 10:27 | Outpatient (CLI) | payer OTHER, SELFPAY ==
[2022-10-31 11:35] LABS: HCG Quantitative /Beta subunit 609.1 mIU/mL
== END ==
PROVIDERS: Family Provider Specialist; Referring Provider Obstetrics & Gynecology; Visit Provider Obstetrics & Gynecology
DX: R10.31 Right lower quadrant pain (principal)
CPT/HCPCS: 36415; 84702

== ENCOUNTER → 2022-11-03 09:05 | Outpatient (CLI) | payer OTHER, SELFPAY ==
[2022-11-03 10:53] LABS: HCG Quantitative /Beta subunit 2336.3 mIU/mL
== END ==
PROVIDERS: Family Provider Specialist; Referring Provider Obstetrics & Gynecology; Visit Provider Obstetrics & Gynecology
DX: O20.9 Hemorrhage in early pregnancy, unspecified (principal)
CPT/HCPCS: 36415; 84702

== ENCOUNTER 2022-11-04 20:40 | Emergency (ER) | payer OTHER, SELFPAY ==
[2022-11-04 20:52] VITALS: BP 135/71; PULSE 81; RESP 17; TEMP 36.6; O2SAT 100
--- NOTE | 2022-11-04 20:57 | DI.US.S_ITS ---
PROCEDURE: US OB <= 14 WEEKS FETUS INDICATIONS: CRAMPING OUTSIDE/PRIOR DATING DATA: Last menstrual period (LMP): 09/22/2022. LMP-based estimated date of delivery (CHELSEA): 06/29/2023. First dating scan (date and location): 11/04/2022. Estimated date of delivery (CHELSEA) from first dating scan: 07/05/2023 by mean sac diameter. TECHNIQUE: Real-time scanning was performed of the fetus and maternal pelvic organs, with image documentation. Endovaginal scanning was also performed to better visualize the fetus and maternal ovaries. COMPARISON: [facility], , OB <= 14 WEEKS FETUS, 10/19/2018, 0:40. [facility], , PELVIC COMPLETE, 10/29/2022, 11:37. FINDINGS: Embryo: There is an oval cystic lesion within the uterus which may represent an early gestational sac. This demonstrates mean sac diameter of 0.5 cm corresponding to a gestational age of 5 weeks 2 days. No discrete pole or yolk sac identified. Maternal organs: Ovaries appear within normal limits. There is a thick-walled collection in the right ovary measuring up to 2.8 cm suggestive of a corpus luteal cyst. No definite adnexal masses.. IMPRESSION: 1. Small cystic collection within the uterus may represent an early gestational sac with calculated gestational age of 5 weeks 2 days. However, the findings may also reflect a pseudogestational sac and an ectopic cannot be excluded. Recommend continued clinical follow-up and a short-term repeat ultrasound if indicated. 2. Probable corpus luteal cyst in the right ovary. No definite adnexal masses. We strive to produce accurate, complete, and clear reports of imaging services. To assist us in improving patient care, this report was composed using standard report templates and voice recognition software. Therefore, it may contain abnormal punctuation, insertions and/or omissions. Occasional wrong-word or sound-alike substitutions may occur. Though we review the report and make efforts to correct it, we do recommend that the report be read carefully in proper context to recognize any text inaccuracies. Dictated by: Janusz Tripathi M.D. on 11/04/2022 at 23:01 Approved by: Janusz Tripathi M.D. on 11/04/2022 at 23:05
[2022-11-04 21:20] VITALS: BP 116/56; PULSE 79; O2SAT 100
[2022-11-04 21:33] LABS: Add Manual Diff / Slide Review NO; Basophils Absolute Auto 0 /uL (0-100); Basophils Percent Auto 0.7 % (0-2); Eosinophils Absolute Auto 100 /uL (0-450); Eosinophils Percent Auto 1.3 % (2-4); Hematocrit 37.9 % (36-46); Lymphocytes Absolute Auto 2400 /uL (1100-4500); Lymphocytes Percent Auto 33.8 % (25-40); Mean Corpuscular HGB Conc 34.2 % (30-36); Mean Corpuscular Hemoglobin 29.4 PG (26-34); Mean Corpuscular Volume 85.7 fL (80-100); Monocytes Absolute Auto 700 /uL (0-900); Monocytes Percent Auto 9.5 % (3-14); Neutrophils Absolute Auto 3900 /uL (1500-7000); Neutrophils Percent Auto 54.7 % (50-75); Platelet Count 265 X10^3/uL (150-400); Red Blood Cell Count 4.42 X10^6/uL (4.0-5.2); White Blood Cell Count 7.1 X10^3/uL (4.5-11.0)
[2022-11-04 21:45] LABS: Alanine Aminotransferase 17 IU/L (<35); Albumin 4.4 g/dL (3.5-5.0); Albumin Globulin Ratio 1.3 (1.0-2.8); Alkaline Phosphatase 71 U/L (38-126); Aspartate Aminotransferase 23 IU/L (14-36); BUN Creatinine Ratio 19.4 (6-22); Bilirubin Total 0.4 mg/dL (0.2-1.3); Blood Urea Nitrogen 14 mg/dL (7-17); Calcium 8.8 mg/dL (8.4-10.2); Carbon Dioxide 23 mmol/L (22-32); Chloride 103 mmol/L (98-107); Estimated Glomerular Filt Rate > 60 mL/min (>60); Globulin 3.5 g/dL (1.7-4.1); Glucose 86 mg/dL (70-100); HEMOLYSIS < 15 (0-50); Potassium 3.8 mmol/L (3.4-5.1); Sodium 137 mmol/L (137-145); Total Protein 7.9 g/dL (6.3-8.2)
[2022-11-04 22:06] LABS: HCG Quantitative /Beta subunit 4000 mIU/mL
--- NOTE | 2022-11-04 22:52 | ED.GENADULT ---
HPI - General Adult General Chief complaint: Abdominal Pain Stated complaint: cramping, about 6 weeks Time Seen by Provider: 11/04/22 21:37 Source: patient Mode of arrival: Ambulatory History of Present Illness HPI narrative: 27-year-old with very early had some bleeding and spotting about a week ago was seen here and told that she had a threatened with quantitative hCG at 190. Seem to improve but then over the last 24 hours she is had increasing back cramping and comes in for further evaluation. She has had subsequent HCGs with continued increase in numbers. Yesterday hCG was at 2336 and today is at 4000. She does not describe fevers, cough, chills, dysuria, diarrhea. Related Data Home Medications Medication Instructions Recorded Confirmed prenat.vits,parmjit,abt-ecmv-famsn 1 tab PO DAILY 09/17/20 11/12/22 bupropion HCl 150 mg 24 hr tablet, 150 mg PO DAILY 11/04/22 11/12/22 extended release sertraline 50 mg tablet 100 mg PO DAILY Depression 11/04/22 11/12/22 Allergies Allergy/AdvReac Type Severity Reaction Status Date / Time No Known Drug Allergies Allergy Verified 11/12/22 09:03 Review of Systems Review of Systems Narrative: Remainder of exam Patient History Medical History (Updated 11/13/22 @ 00:00 by ) Abnormal Pap smear of cervix (~2017) Anemia (~2013) Healthy adult Ovarian cyst (~2019) Painful menstrual periods (~2019) Pelvic pain affecting Right lower quadrant pain Surgical History (Updated 11/12/22 @ 09:06 by Danelle Price RN) Anesthesia Delivery by section (~04/25/21) H/O: section History of section [place] teeth removed (~2013) Family History (Updated 11/12/22 @ 09:09 by Danelle Price RN) Grandfather Stroke Heart disease Pacemaker Mother No problems noted. Father Hyperlipidemia Grandmother No problems noted. Grandfather Alcoholic Suicide Grandmother No problems noted. Sister Uterine fibroid History of partial hysterectomy Social History marital status: number of children: 3 household members: spouse and children lives independently: Yes caregiver/support person: No housing: house pets and animals: Yes (2 dogs, safe. ) education level: college (AA degree, working on Bachelor's in Education. ) occupational status: employed ([employer] duty [employer], works in [employer]) current occupational exposures/hazards: No renetta/confucianism: Anabaptist special renetta needs: No travel history: recent ([place], no illness) seatbelt use: always water heater temp set < 120 deg: Yes working smoke detector in home: Yes fire extinguisher in home: Yes carbon monox detector in home: Yes firearms in home: Yes firearms unloaded and locked: Yes do you feel safe at home: Yes Smoking Status: Former smoker (quit late 2021) Tobacco: How many years used: 1 quit status: has quit before second hand exposure: No alcohol intake: former (2-3/week when not ) substance use type: does not use during the past year weight has: remained stable well-balanced diet: daily or most days daily servings fruits/ve-4 caffeine: Yes (black tea) Type(s) of exercise: walking (treadmill at home. ) and weight lifting frequency: 3-4 times per week duration: 45-60 minutes/day Smoking Status: Never smoker alcohol intake frequency: other Substance Use Type: does not use Exam Initial Vital Signs Initial Vital Signs: Vital Signs Temperature 98 F 11/04/22 20:52 Pulse Rate 81 11/04/22 20:52 Respiratory Rate 17 11/04/22 20:52 Blood Pressure 135/71 11/04/22 20:52 Pulse Oximetry 100 11/04/22 20:52 Oxygen Delivery Method 11/04/22 20:52 General: Alert appropriate in no acute distress Respiratory: Able to speak in full sentences, no obvious respiratory distress Skin: No obvious rashes, warm and dry Neurologic: Grossly intact no obvious asymmetries or abnormalities Psych: appropriate insight and affect, cooperative Course Orders Ordered: ED Orders 11/04/22 20:57 US OB <= 14 weeks fetus Stat 11/04/22 21:15 ABO RH Type Stat Complete Blood Count AUTO DIFF Stat Comprehensive Metabolic Panel Stat HCG Quantitative /Beta subunit Stat Vital Signs Vital signs: Vital Signs - 8 hr 11/04/22 20:52 11/04/22 21:20 11/04/22 21:20 Temperature 98 F Pulse Rate 81 79 Respiratory Rate 17 Blood Pressure 135/71 116/56 L Pulse Oximetry 100 100 Oxygen Delivery Method Room Air Room Air Medical Decision Making Lab Data 11/04/22 21:15 11/04/22 21:15 Labs: Lab Results 11/04/22 11/04/22 11/04/22 Range/Units 21:15 21:15 21:15 WBC 7.1 (4.5-11.0) X10^3/uL RBC 4.42 (4.0-5.2) X10^6/uL Hgb 13.0 (12.0-16.0) g/dL Hct 37.9 (36-46) % MCV 85.7 (80-100) fL MCH 29.4 (26-34) PG MCHC 34.2 (30-36) % RDW 13.0 (11.6-14.8) % Plt Count 265 (150-400) X10^3/uL Neut % (Auto) 54.7 (50-75) % Lymph % (Auto) 33.8 (25-40) % [place] % (Auto) 9.5 (3-14) % Eos % (Auto) 1.3 L (2-4) % Baso % (Auto) 0.7 (0-2) % Neut # (Auto) 3900 (0489-8773) /uL Lymph # (Auto) 2400 (0800-9923) /uL [place] # (Auto) 700 (0-900) /uL Eos # (Auto) 100 (0-450) /uL Baso # (Auto) 0 (0-100) /uL Sodium 137 (137-145) mmol/L Potassium 3.8 (3.4-5.1) mmol/L Chloride 103 (98-107) mmol/L Carbon Dioxide 23 (22-32) mmol/L BUN 14 (7-17) mg/dL Creatinine 0.72 (0.52-1.04) mg/dL Estimated GFR > 60 (>60) mL/min BUN/Creatinine Ratio 19.4 (6-22) Glucose 86 (70-100) mg/dL Calcium 8.8 (8.4-10.2) mg/dL Total Bilirubin 0.4 (0.2-1.3) mg/dL AST 23 (14-36) IU/L ALT 17 (<35) IU/L Alkaline Phosphatase 71 (38-126) U/L Total Protein 7.9 (6.3-8.2) g/dL Albumin 4.4 (3.5-5.0) g/dL Globulin 3.5 (1.7-4.1) g/dL Albumin/Globulin Ratio 1.3 (1.0-2.8) HCG, Quant 4000 mIU/mL Blood Type A Positive Urine Dip Bedside Urine Glucose Negative Bedside Urine Bilirubin - Negative Bedside Urine Ketone - Negative Urine Specific [place] 1.010 Bedside Urine Occult Blood - Negative Bedside Urine pH 6.0 Bedside Urine Protein - Negative Bedside Urine Urobilinogen - Negative Bedside Urine Nitrite - Negative Bedside Urine Leukocytes - Negative Esterase Point of care testing: Urine Dip Bedside Urine Glucose Negative Bedside Urine Bilirubin - Negative Bedside Urine Ketone - Negative Urine Specific [place] 1.010 Bedside Urine Occult Blood - Negative Bedside Urine pH 6.0 Bedside Urine Protein - Negative Bedside Urine Urobilinogen - Negative Bedside Urine Nitrite - Negative Bedside Urine Leukocytes - Negative Esterase Imaging Data Early ultrasound: My Impression: After discussion with the tech, intrauterine gestational sac without pole is appreciated. Consistent with 5-6 week . No evidence of ectopic at this time. MDM Narrative Medical decision making narrative: CC: Significant pelvic cramping and back pain very early Complicating co-morbidities: Anticipated Corroborating data: Data collected from: patient, Differential considered: Intrauterine , miscarriage, ectopic , urinary tract infection, pelvic inflammatory disease Exam documented above, pertinent findings include: Unremarkable exam, pelvic ultrasound done by interventional tech Lab Test results independently reviewed as above. Pertinent findings: Appropriately increasing quantitative hCG Imaging studies independently reviewed: Gestational sac, suspect very early based on timing and hCG. pole is not appreciated and no evidence of ectopic appreciated Discussion: Findings reviewed with patient and her . At this time it does look like she has a viable intrauterine . She has a follow-up appointment with her OBGYN and scheduled ultrasound in 48 hours. Encouraged her to keep this. Talked about use of heating pad and or Tylenol should she continue to have the back pain. Encouraged her to return if symptoms worsen or change with this point additional workup is not indicated and there is no need for hospital admission. Disposition: see below, along with detailed discharge instructions that have been reviewed with patient as well as indications for ED re-evaluation and additional outpatient follow up Discharge Plan Departure Patient Disposition: Home Clinical Impression: Early stage of Instructions: DI for -- Discomforts and Remedies Activity Restrictions/Additional Instructions: Thank you for coming in today Your quantitative hCG is continuing to increase appropriately. Your pelvic ultrasound today shows a gestational sac in the uterus. This is likely a very early and a pole was not yet seen. There were no other abnormalities to suggest that this might be an ectopic . There are no additional signs of infection or complications today. I would encourage you to keep your appointment with Dr. Rosario If you find that you are getting worse or develop any new symptoms, please feel free to return to the emergency department for further evaluation. I wish you the best with this Prescriptions: No Action prenat.vits,parmjit,bzw-xanl-ejgql Tablet 1 tab PO DAILY bupropion HCl 150 mg tablet extended release 24 hr 150 mg PO DAILY sertraline 50 mg tablet 100 mg PO DAILY Rx Instructions: Take 1/2 tab for 3 days then 1 full tab Referrals: ProviderFred [Primary Care Provider] - Stand Alone Forms: Patient Portal/API
[2022-11-04 23:04] VITALS: BP 109/57; PULSE 79; O2SAT 98
[2022-11-04 23:06] VITALS: BP 111/67; PULSE 80; RESP 18; O2SAT 99
== END 2022-11-04 23:10 | disposition home or self-care (01) ==
PROVIDERS: Emergency Provider Emergency Medicine; Family Provider Specialist
DX: O26.891 Other specified pregnancy related conditions, first trimester (principal); R10.9 Unspecified abdominal pain; Z3A.01 Less than 8 weeks gestation of pregnancy
CPT/HCPCS: 36415; 76801; 76817; 80053; 81003; 84702; 85025; 86900; 86901; 99284

== ENCOUNTER → 2022-12-10 13:03 | Outpatient (CLI) | payer OTHER, SELFPAY ==
[2022-12-10 13:48] LABS: Add Manual Diff / Slide Review NO; Basophils Absolute Auto 0 /uL (0-100); Basophils Percent Auto 0.5 % (0-2); Eosinophils Absolute Auto 100 /uL (0-450); Eosinophils Percent Auto 0.8 % (2-4); Hematocrit 37.6 % (36-46); Hemoglobin 12.8 g/dL (12.0-16.0); Lymphocytes Absolute Auto 1800 /uL (1100-4500); Mean Corpuscular HGB Conc 34.1 % (30-36); Mean Corpuscular Hemoglobin 29.3 PG (26-34); Mean Corpuscular Volume 85.8 fL (80-100); Monocytes Absolute Auto 500 /uL (0-900); Monocytes Percent Auto 6.9 % (3-14); Neutrophils Absolute Auto 4800 /uL (1500-7000); Neutrophils Percent Auto 66.8 % (50-75); Platelet Count 275 X10^3/uL (150-400); Red Blood Cell Count 4.38 X10^6/uL (4.0-5.2); Red Cell Distribution Width 12.7 % (11.6-14.8); White Blood Cell Count 7.2 X10^3/uL (4.5-11.0)
[2022-12-11 11:36] LABS: Varicella IgG Antibody 1391 index (Immune >165)
[2022-12-11 17:00] LABS: Hepatitis B Surface Antigen NEGATIVE s/c (NEGATIVE); Rubella Antibody IgG 47.4 IU/mL (>15)
[2022-12-11 17:14] LABS: HIV 1 & 2 Ab/Ag 4th Gen Combo NEGATIVE (NEGATIVE); Hep C Virus Ab w/Reflex Quant NEGATIVE s/c (NEGATIVE)
[2022-12-13 04:24] LABS: RPR Screen Non Reactive (Non Reactive)
== END ==
PROVIDERS: Family Provider Specialist; Referring Provider Obstetrics & Gynecology; Visit Provider Obstetrics & Gynecology
DX: Z34.81 Encounter for supervision of other normal pregnancy, first trimester (principal)
CPT/HCPCS: 36415; 80055; 86787; 86803; 86850; 86900; 86901; 87086; 87389

== ENCOUNTER 2022-12-16 07:33 | Emergency (ER) | payer OTHER, SELFPAY ==
[2022-12-16 08:29] VITALS: BP 137/71; PULSE 108; RESP 18; TEMP 36.9; O2SAT 99; BMI 31.7
[2022-12-16] MEDS: SODIUM CHLORIDE 0.9% 1,000 ML 1000 ML IV (08:53)
[2022-12-16] MEDS: ONDANSETRON 4 MG/2 ML INJ IV (08:53)
--- NOTE | 2022-12-16 09:07 | ED.NAVMDI ---
HPI - Nausea/Vomiting/Diarrhea General Chief complaint: Nausea/Vomiting/Diarrhea Stated complaint: throwing up blood Time Seen by Provider: 12/16/22 08:59 Source: patient Mode of arrival: Ambulatory History of Present Illness HPI Narrative: Patient brought here by for nausea and vomiting. Patient is 11 weeks . Expected due date July 05, 2023. OBGYN is Dr. Rosario. Patient is . Patient has been doing well with her . Patient states did not experience hyperemesis with previous pregnancies. However patient and states the whole family has been sick with nausea and vomiting. The rest of the family has resolved with their nausea and vomiting. Denies any fever chills no cough cold or congestion. Denies any pelvic or abdominal pain or cramping or vaginal bleeding or fluid leak. No urinary complaints. Denies abdominal pain. She did vomit at 5:00 a.m. and no small blood clot. Related Data Home Medications Medication Instructions Recorded Confirmed prenat.vits,parmjit,[id number] 1 tab PO DAILY 09/17/20 12/09/22 bupropion HCl 150 mg 24 hr tablet, 150 mg PO DAILY 11/04/22 12/09/22 extended release sertraline 50 mg tablet 100 mg PO DAILY Depression 11/04/22 12/09/22 Previous Rx's Medication Instructions Recorded ondansetron 4 mg disintegrating 4 mg PO Q6-8H PRN nausea and 12/02/22 tablet vomiting #20 tabs cephalexin 500 mg capsule 500 mg PO TID #12 caps 12/16/22 ondansetron 4 mg disintegrating 4 mg PO Q8H PRN nausea and 12/16/22 tablet vomiting #15 tabs Allergies Allergy/AdvReac Type Severity Reaction Status Date / Time No Known Drug Allergies Allergy Verified 12/09/22 11:50 Review of Systems Review of Systems Narrative: GENERAL: negative chills, fatigue, malaise, fever, sweats. HEENT: negative sinus pain, ear pain, sore throat RESPIRATORY: negative dyspnea, cough CARDIOVASCULAR: negative chest pain, palpitations GASTROINTESTINAL: Positive nausea, vomiting, negative abdominal pain : negative dysuria, frequency, hematuria MUSCULOSKELETAL: negative muscle or bony pain SKIN: negative rash, skin lesions NEUROLOGIC: negative weakness, numbness ROS Unobtainable: All systems reviewed & are unremarkable except as noted in HPI and below Patient History Medical History Abnormal Pap smear of cervix (~2017) Anemia (~2013) Healthy adult Ovarian cyst (~2019) Painful menstrual periods (~2019) Pelvic pain affecting Right lower quadrant pain Surgical History Anesthesia Delivery by section (~04/25/21) H/O: section History of section [place] teeth removed (~2013) Family History Grandfather Stroke Heart disease Pacemaker Mother No problems noted. Father Hyperlipidemia Grandmother No problems noted. Grandfather Alcoholic Suicide Grandmother No problems noted. Sister Uterine fibroid History of partial hysterectomy Social History marital status: number of children: 3 household members: spouse and children lives independently: Yes caregiver/support person: No housing: house pets and animals: Yes (2 dogs, safe. ) education level: college (AA degree, working on [employer] in Education. ) occupational status: employed (Active duty [employer], works in [employer]) current occupational exposures/hazards: No renetta/holiness: Cheondoism special renetta needs: No travel history: recent ([place], no illness) seatbelt use: always water heater temp set < 120 deg: Yes working smoke detector in home: Yes fire extinguisher in home: Yes carbon monox detector in home: Yes firearms in home: Yes firearms unloaded and locked: Yes do you feel safe at home: Yes Smoking Status: Former smoker Tobacco: How many years used: 1 quit status: has quit before second hand exposure: No alcohol intake: former (2-3/week when not ) substance use type: does not use during the past year weight has: remained stable well-balanced diet: daily or most days daily servings fruits/ve-4 caffeine: Yes (black tea) Type(s) of exercise: walking (treadmill at home. ) and weight lifting frequency: 3-4 times per week duration: 45-60 minutes/day Smoking Status: Former smoker alcohol intake frequency: other Substance Use Type: does not use Exam Narrative Exam Narrative: GENERAL: in no distress, not toxic not dyspneic HEAD: Normocephalic. EYES: Pupils equal round ENT: Mucous membranes moist. NECK: Trachea midline. CARDIOVASCULAR: Regular rate and rhythm without murmurs RESPIRATORY: Clear to auscultation. Breath sounds equal bilaterally. No wheezes, rales, or rhonchi. GASTROINTESTINAL: Abdomen soft, non-tender, no peritoneal signs bowel sounds are present. Abdomen is nontender. No pain out of proportion to exam EXTREMITIES: No gross deformities. BACK: No flank tenderness. NEURO: AOx4. SKIN: Warm and dry PSYCH: Not anxious, is cooperative Initial Vital Signs Initial Vital Signs: Vital Signs Temperature 98.4 F 12/16/22 08:29 Pulse Rate 108 H 12/16/22 08:29 Respiratory Rate 18 12/16/22 08:29 Blood Pressure 137/71 12/16/22 08:29 Pulse Oximetry 99 12/16/22 08:29 Oxygen Delivery Method Room Air 12/16/22 08:29 Course Orders Ordered: Discontinued Medications Acetaminophen (Acetaminophen 325 Mg Tablet) 650 mg PO NOW ONE Stop: 12/16/22 10:59 Last Admin: 12/16/22 11:07 Dose: 650 mg Documented By: MATTHIEU Cephalexin HCl (Cephalexin 250 Mg Capsule) 500 mg PO NOW ONE Stop: 12/16/22 11:44 Last Admin: 12/16/22 11:51 Dose: 500 mg Documented By: MATTHIEU Sodium Chloride (Normal Saline 0.9%) 1,000 mls @ 1,000 mls/hr IV BOLUS ONE Stop: 12/16/22 09:51 Last Infusion: 12/16/22 11:53 Dose: 0 mls/hr Documented By: Admin: 12/16/22 08:53 Dose: 1,000 mls/hr Documented By: MATTHIEU Ondansetron HCl (Ondansetron 4 Mg Odt) 4 mg PO NOW PRN PRN Reason: Nausea And Vomiting Ondansetron HCl (Ondansetron 4 Mg/2 Ml Inj) 4 mg IV NOW PRN PRN Reason: Nausea And Vomiting Last Admin: 12/16/22 08:53 Dose: 4 mg Documented By: MATTHIEU Vital Signs Vital signs: Vital Signs - 8 hr 12/16/22 08:29 Temperature 98.4 F Pulse Rate 108 H Respiratory Rate 18 Blood Pressure 137/71 Pulse Oximetry 99 Oxygen Delivery Method Room Air [facility] - Nausea/Vomiting/Diarrhea Lab Data 12/16/22 08:50 12/16/22 08:50 Labs: Lab Results 12/16/22 12/16/22 12/16/22 Range/Units 08:50 08:50 08:50 WBC 14.1 H (4.5-11.0) X10^3/uL RBC 4.69 (4.0-5.2) X10^6/uL Hgb 13.5 (12.0-16.0) g/dL Hct 40.3 (36-46) % MCV 86.0 (80-100) fL MCH 28.8 (26-34) PG MCHC 33.5 (30-36) % RDW 12.9 (11.6-14.8) % Plt Count 273 (150-400) X10^3/uL Neut % (Auto) 93.3 H (50-75) % Lymph % (Auto) 4.0 L (25-40) % Pepin % (Auto) 2.5 L (3-14) % Eos % (Auto) 0.1 L (2-4) % Baso % (Auto) 0.1 (0-2) % Neut # (Auto) 23573 H (0421-2485) /uL Lymph # (Auto) 600 L (0665-5256) /uL [place] # (Auto) 400 (0-900) /uL Eos # (Auto) 0 (0-450) /uL Baso # (Auto) 0 (0-100) /uL Sodium 136 L (137-145) mmol/L Potassium 4.1 (3.4-5.1) mmol/L Chloride 105 (98-107) mmol/L Carbon Dioxide 22 (22-32) mmol/L BUN 13 (7-17) mg/dL Creatinine 0.50 L (0.52-1.04) mg/dL Estimated GFR > 60 (>60) mL/min BUN/Creatinine Ratio 26.0 H (6-22) Glucose 110 H (70-100) mg/dL Calcium 9.0 (8.4-10.2) mg/dL Total Bilirubin 0.7 (0.2-1.3) mg/dL AST 24 (14-36) IU/L ALT 16 (<35) IU/L Alkaline Phosphatase 63 (38-126) U/L Total Protein 7.9 (6.3-8.2) g/dL Albumin 4.3 (3.5-5.0) g/dL Globulin 3.6 (1.7-4.1) g/dL Albumin/Globulin Ratio 1.2 (1.0-2.8) Lipase 143 (23-300) U/L Urine RBC 1-5/hpf (0-5/HPF) Urine WBC 5-10/hpf H (0-5/HPF) Ur Squamous Epith Cells 1-5 /hpf (0-5/HPF) Urine Bacteria Many (>30) H (None) Ur Culture Indicated? Specimen cultured SARS-CoV-2 (PCR) (Negative) Influenza A (RT-PCR) (NEGATIVE) Influenza B (RT-PCR) (NEGATIVE) RSV (PCR) (Negative) 12/16/22 Range/Units 09:20 WBC (4.5-11.0) X10^3/uL RBC (4.0-5.2) X10^6/uL Hgb (12.0-16.0) g/dL Hct (36-46) % MCV (80-100) fL MCH (26-34) PG MCHC (30-36) % RDW (11.6-14.8) % Plt Count (150-400) X10^3/uL Neut % (Auto) (50-75) % Lymph % (Auto) (25-40) % Pepin % (Auto) (3-14) % Eos % (Auto) (2-4) % Baso % (Auto) (0-2) % Neut # (Auto) (0193-7381) /uL Lymph # (Auto) (3410-9432) /uL Pepin # (Auto) (0-900) /uL Eos # (Auto) (0-450) /uL Baso # (Auto) (0-100) /uL Sodium (137-145) mmol/L Potassium (3.4-5.1) mmol/L Chloride (98-107) mmol/L Carbon Dioxide (22-32) mmol/L BUN (7-17) mg/dL Creatinine (0.52-1.04) mg/dL Estimated GFR (>60) mL/min BUN/Creatinine Ratio (6-22) Glucose (70-100) mg/dL Calcium (8.4-10.2) mg/dL Total Bilirubin (0.2-1.3) mg/dL AST (14-36) IU/L ALT (<35) IU/L Alkaline Phosphatase (38-126) U/L Total Protein (6.3-8.2) g/dL Albumin (3.5-5.0) g/dL Globulin (1.7-4.1) g/dL Albumin/Globulin Ratio (1.0-2.8) Lipase (23-300) U/L Urine RBC (0-5/HPF) Urine WBC (0-5/HPF) Ur Squamous Epith Cells (0-5/HPF) Urine Bacteria (None) Ur Culture Indicated? SARS-CoV-2 (PCR) Negative (Negative) Influenza A (RT-PCR) Flu a negative (NEGATIVE) Influenza B (RT-PCR) Flu b negative (NEGATIVE) RSV (PCR) Negative (Negative) Point of Care Testing Test Results Positive Urine Dip Bedside Urine Glucose Negative Bedside Urine Bilirubin - Negative Bedside Urine Ketone - Negative Urine Specific [place] 1.025 Bedside Urine Occult Blood + Bedside Urine pH 6.0 Bedside Urine Protein +/- 15 Bedside Urine Urobilinogen - Negative Bedside Urine Nitrite + Positive Bedside Urine Leukocytes - Negative Esterase [facility] Narrative Medical decision making narrative: Patient brought here by for nausea and vomiting. Patient is 11 weeks . Expected due date July 05, 2023. OBGYN is Dr. Rosario. Patient is . Patient has been doing well with her . Patient states did not experience hyperemesis with previous pregnancies. However patient and states the whole family has been sick with nausea and vomiting. The rest of the family has resolved with their nausea and vomiting. Denies any fever chills no cough cold or congestion. Denies any pelvic or abdominal pain or cramping or vaginal bleeding or fluid leak. No urinary complaints. Denies abdominal pain. She did vomit at 5:00 a.m. and no small blood clot. After history and exam CBC CMP urinalysis lipase Zofran normal saline have been ordered [facility] CC: Nausea and vomiting Complicating co-morbidities: Patient 11 weeks . Data collected from: Patient and Medical records reviewed: Patient seen here in October for early Differential considered: Includes but not limited to viral gastritis/hyperemesis /food poisoning Exam documented above, pertinent findings include: Nontender abdomen Lab Test results independently reviewed as above. Pertinent findings: Urinalysis positive nitrite, sodium 136 potassium 4.1 bicarb 22 BUN 13 creatinine 0.5 GFR greater than 60, white cell count 14 Treatments: Zofran Keflex normal saline Re-evaluations: 11:54 a.m.. Reviewed results with patient. Patient feeling better after normal saline and Zofran. She does agree for treatment for UTI. White cell count could be due to UTI or vomiting or due to . Return precautions reviewed with her. She has appointment with her OBGYN end of this month. She desires discharge home. Discussion: Appropriate for discharge home. Exam and laboratory studies otherwise reassuring. She is had UTIs in the past. She does agree for UTI treatment with Keflex. Nausea controlled at time of discharge not toxic. No imaging indicated this time. Patient is 11 weeks and had ultrasound already for her care. Diagnosis: Acute UTI Discharge Plan Departure Patient Disposition: Home Clinical Impression: Nausea and vomiting during , Acute UTI Instructions: DI for Urinary Tract Infection (UTI), DI for Vomiting -- Adult Activity Restrictions/Additional Instructions: Please see your OBGYN doctor as scheduled. Prescription for antibiotics to treat urinary tract infection has been sent to your [facility] pharmacy. Zofran/nausea medication has been sent as well. Be sure to picker packer those today. Keep well hydrated. Return if worse if any questions or concerns. Prescriptions: New cephalexin 500 mg capsule 500 mg PO TID Qty: 12 0RF ondansetron 4 mg tablet,disintegrating 4 mg PO Q8H PRN (Reason: nausea and vomiting) Qty: 15 0RF No Action ondansetron 4 mg tablet,disintegrating 4 mg PO Q6-8H PRN (Reason: nausea and vomiting) Qty: 20 2RF prenat.vits,parmjit,[id number] Tablet 1 tab PO DAILY bupropion HCl 150 mg tablet extended release 24 hr 150 mg PO DAILY sertraline 50 mg tablet 100 mg PO DAILY Rx Instructions: Take 1/2 tab for 3 days then 1 full tab Referrals: ProviderFred [Primary Care Provider] - Stand Alone Forms: Patient Portal/API
[2022-12-16 09:22] LABS: Add Manual Diff / Slide Review NO; Alanine Aminotransferase 16 IU/L (<35); Albumin 4.3 g/dL (3.5-5.0); Albumin Globulin Ratio 1.2 (1.0-2.8); Alkaline Phosphatase 63 U/L (38-126); Aspartate Aminotransferase 24 IU/L (14-36); Basophils Absolute Auto 0 /uL (0-100); Basophils Percent Auto 0.1 % (0-2); Bilirubin Total 0.7 mg/dL (0.2-1.3); Blood Urea Nitrogen 13 mg/dL (7-17); Carbon Dioxide 22 mmol/L (22-32); Chloride 105 mmol/L (98-107); Eosinophils Absolute Auto 0 /uL (0-450); Eosinophils Percent Auto 0.1 % (2-4); Estimated Glomerular Filt Rate > 60 mL/min (>60); Globulin 3.6 g/dL (1.7-4.1); Glucose 110 mg/dL (70-100); HEMOLYSIS 18 (0-50); Hematocrit 40.3 % (36-46); Hemoglobin 13.5 g/dL (12.0-16.0); Lipase 143 U/L (23-300); Lymphocytes Absolute Auto 600 /uL (1100-4500); Mean Corpuscular HGB Conc 33.5 % (30-36); Mean Corpuscular Hemoglobin 28.8 PG (26-34); Monocytes Absolute Auto 400 /uL (0-900); Monocytes Percent Auto 2.5 % (3-14); Neutrophils Absolute Auto 13100 /uL (1500-7000); Neutrophils Percent Auto 93.3 % (50-75); Platelet Count 273 X10^3/uL (150-400); Potassium 4.1 mmol/L (3.4-5.1); RBC Urine 1-5/HPF (0-5/HPF); Red Blood Cell Count 4.69 X10^6/uL (4.0-5.2); Red Cell Distribution Width 12.9 % (11.6-14.8); Sodium 136 mmol/L (137-145); Total Protein 7.9 g/dL (6.3-8.2); WBC Urine 5-10/HPF (0-5/HPF); White Blood Cell Count 14.1 X10^3/uL (4.5-11.0)
[2022-12-16 09:23] LABS: Bacteria Urine Many (>30); Culture Indicated Urine Specimen Cultured; Squamous Epithelial Cell Urine 1-5 /HPF (0-5/HPF)
[2022-12-16 10:09] LABS: Influenza A - CEPHEID Flu A NEGATIVE (NEGATIVE); Influenza B - CEPHEID Flu B NEGATIVE (NEGATIVE); Respiratory Syncytial Virus Negative (Negative)
[2022-12-16 10:10] LABS: COVID-19 CEPHEID 4-PLEX PCR Negative (Negative)
[2022-12-16] MEDS: ACETAMINOPHEN 325 MG TABLET 650 MG PO (11:07)
[2022-12-16] MEDS: cephALEXin 250 MG CAPSULE 500 MG PO (11:51)
== END 2022-12-16 12:08 | disposition home or self-care (01) ==
PROVIDERS: Emergency Provider Emergency Medicine; Family Provider Specialist
DX: O23.41 Unspecified infection of urinary tract in pregnancy, first trimester (principal); N39.0 Urinary tract infection, site not specified; O21.9 Vomiting of pregnancy, unspecified; Z3A.11 11 weeks gestation of pregnancy
CPT/HCPCS: 0241U; 80053; 81003; 81015; 81025; 83690; 85025; 87077; 87086; 87186; 96361; 96374; 99284; J2405

== ENCOUNTER → 2022-12-31 11:10 | Outpatient (CLI) | payer OTHER, SELFPAY ==
[2022-12-31 12:46] LABS: Appearance Urine UA SL CLOUDY; Bilirubin Urine UA NEGATIVE (NEGATIVE); Color Urine UA YELLOW; Glucose Urine UA NEGATIVE (Negative); Ketones Urine UA TRACE (NEGATIVE); Leukocyte Esterase Urine UA NEGATIVE (NEGATIVE); Nitrite Urine UA POSITIVE (Negative); Occult Blood Urine UA NEGATIVE (Negative); Protein Urine UA NEGATIVE (Negative); Specific Gravity Urine UA 1.025 (1.000-1.035)
[2022-12-31 13:03] LABS: RBC Urine 0-1/HPF (0-5/HPF)
[2022-12-31 13:04] LABS: Bacteria Urine Many (>30); Culture Indicated Urine Specimen Cultured; Squamous Epithelial Cell Urine 0-1 /HPF (0-5/HPF); WBC Urine 5-10/HPF (0-5/HPF)
== END ==
PROVIDERS: Family Provider Specialist; Referring Provider Obstetrics & Gynecology; Visit Provider Obstetrics & Gynecology
DX: O20.9 Hemorrhage in early pregnancy, unspecified (principal); R30.0 Dysuria
CPT/HCPCS: 81001; 87077; 87086; 87186

== ENCOUNTER 2023-01-22 11:18 | Emergency (ER) | payer OTHER, SELFPAY ==
[2023-01-22 11:23] VITALS: BP 105/74; PULSE 93; RESP 18; TEMP 36.7; O2SAT 100; BMI 33.2
--- NOTE | 2023-01-22 11:33 | DI.US.S_ITS ---
PROCEDURE: US OB LIMITED INDICATIONS: 17 weeks . Limited movements. OUTSIDE/PRIOR DATING DATA: Last menstrual period (LMP): 09/22/2022. LMP-based estimated date of delivery (CHELSEA): 06/29/2023. First dating scan (date and location): None available. Estimated date of delivery (CHELSEA) from first dating scan: Not applicable. The calculations are made using the clinical CHELSEA of 06/29/2023. TECHNIQUE: Real-time scanning was performed of the fetus, with image documentation. Endovaginal scanning: Not performed COMPARISON: None. FINDINGS: A single living intrauterine gestation is present. Presentation: Variable. Placenta: Placental position is posterior, without previa. Amniotic fluid index: 13.1 cm, normal range is 5-24 cm. Single deepest vertical pocket is 4 cm. heart rate: 140 beats per minute. Maternal cervical canal: 4.5 cm long. Normal lower limit is 2.5 cm. Clinically estimated gestational age: 17 weeks 3 days Estimated gestational age from initial scan: Not applicable. IMPRESSION: Single living intrauterine at 17 weeks 3 days, CHELSEA of 06/29/2023. Dictated by: Keith Shin M.D. on 01/22/2023 at 12:46 Approved by: Keith Shin M.D. on 01/22/2023 at 12:49
[2023-01-22] MEDS: SODIUM CHLORIDE 0.9% 1,000 ML 1000 ML IV (11:39)
[2023-01-22] MEDS: ONDANSETRON 4 MG/2 ML INJ IV (11:39)
[2023-01-22 11:42] LABS: Add Manual Diff / Slide Review NO; Basophils Absolute Auto 0 /uL (0-100); Basophils Percent Auto 0.4 % (0-2); Eosinophils Absolute Auto 0 /uL (0-450); Eosinophils Percent Auto 0.1 % (2-4); Hematocrit 37.2 % (36-46); Lymphocytes Absolute Auto 1500 /uL (1100-4500); Mean Corpuscular Hemoglobin 30.2 PG (26-34); Mean Corpuscular Volume 86.1 fL (80-100); Monocytes Absolute Auto 400 /uL (0-900); Monocytes Percent Auto 4.2 % (3-14); Neutrophils Absolute Auto 6800 /uL (1500-7000); Neutrophils Percent Auto 78.3 % (50-75); Platelet Count 284 X10^3/uL (150-400); Red Blood Cell Count 4.32 X10^6/uL (4.0-5.2); Red Cell Distribution Width 13.4 % (11.6-14.8); White Blood Cell Count 8.7 X10^3/uL (4.5-11.0)
[2023-01-22 11:50] LABS: Alanine Aminotransferase 16 IU/L (<35); Albumin 4.1 g/dL (3.5-5.0); Albumin Globulin Ratio 1.1 (1.0-2.8); Alkaline Phosphatase 56 U/L (38-126); Aspartate Aminotransferase 21 IU/L (14-36); BUN Creatinine Ratio 14.6 (6-22); Bilirubin Total 0.6 mg/dL (0.2-1.3); Blood Urea Nitrogen 7 mg/dL (7-17); Calcium 9.2 mg/dL (8.4-10.2); Carbon Dioxide 24 mmol/L (22-32); Chloride 103 mmol/L (98-107); Estimated Glomerular Filt Rate > 60 mL/min (>60); Globulin 3.9 g/dL (1.7-4.1); Glucose 91 mg/dL (70-100); HEMOLYSIS < 15 (0-50); Potassium 3.9 mmol/L (3.4-5.1); Sodium 136 mmol/L (137-145)
--- NOTE | 2023-01-22 13:02 | ED.NAVMDI ---
HPI - Nausea/Vomiting/Diarrhea General Chief complaint: Nausea/Vomiting/Diarrhea Stated complaint: V/D/ since 2am 17 weeks pregant Time Seen by Provider: 01/22/23 11:45 Source: patient Mode of arrival: Ambulatory History of Present Illness HPI Narrative: 27-year-old female former smoker is at 17 weeks and presents for evaluation of multiple episodes of diarrhea this morning. Multiple family members with similar symptoms. She denies dizziness, weakness or lightheadedness. She has no chest pain or shortness of breath. She denies any abdominal pain, vaginal bleeding or discharge nor leakage of fluid. She denies recent antibiotics or exposure to bad food. No recent travel. She states that she talked to her care team and was encouraged to present for evaluation of the baby with hopeful ultrasound Related Data Home Medications Medication Instructions Recorded Confirmed prenat.vits,parmjit,[id number] 1 tab PO DAILY 09/17/20 01/05/23 bupropion HCl 150 mg 24 hr tablet, 150 mg PO DAILY 11/04/22 01/05/23 extended release sertraline 50 mg tablet 100 mg PO DAILY Depression 11/04/22 01/05/23 Previous Rx's Medication Instructions Recorded ondansetron 4 mg disintegrating 4 mg PO Q6-8H PRN nausea and 12/02/22 tablet vomiting #20 tabs cephalexin 500 mg capsule 500 mg PO TID #12 caps 12/16/22 ondansetron 4 mg disintegrating 4 mg PO Q8H PRN nausea and 12/16/22 tablet vomiting #15 tabs Allergies Allergy/AdvReac Type Severity Reaction Status Date / Time No Known Drug Allergies Allergy Verified 01/22/23 11:23 Review of Systems Review of Systems Narrative: GENERAL: Denies chills, fatigue, malaise, fever, sweats. HEENT: Denies sinus pain, ear pain, sore throat, difficulty swallowing, dizziness. RESPIRATORY: Denies dyspnea, cough, wheezing, hemoptysis, sputum. CARDIOVASCULAR: Denies chest pain, palpitations, orthopnea, edema, see HPI Denies nausea, vomiting, abdominal pain, diarrhea, constipation, melena. : Denies dysuria, frequency, incontinence, hematuria, urinary retention. MUSCULOSKELETAL: denies weakness, joint pain, or bony pain SKIN: Denies rash, skin lesions, or other NEUROLOGIC: Denies weakness, headache, numbness, change in speech, confusion, seizures, incoordination. PSYCHIATRIC: No concerning psychosocial issues. 12 point review of systems is negative except for those stated above Patient History Medical History Abnormal Pap smear of cervix (~2017) Anemia (~2013) Healthy adult Ovarian cyst (~2019) Painful menstrual periods (~2019) Pelvic pain affecting Right lower quadrant pain Surgical History Anesthesia Delivery by section (~04/25/21) H/O: section History of section [place] teeth removed (~2013) Family History Grandfather Stroke Heart disease Pacemaker Mother No problems noted. Father Hyperlipidemia Grandmother No problems noted. Grandfather Alcoholic Suicide Grandmother No problems noted. Sister Uterine fibroid History of partial hysterectomy Social History marital status: number of children: 3 household members: spouse and children lives independently: Yes caregiver/support person: No housing: house pets and animals: Yes (2 dogs, safe. ) education level: college (AA degree, working on Bachelor's in Education. 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[employer]) current occupational exposures/hazards: No renetta/mormonism: Amish special renetta needs: No travel history: recent ([place], no illness) seatbelt use: always water heater temp set < 120 deg: Yes working smoke detector in home: Yes fire extinguisher in home: Yes carbon monox detector in home: Yes firearms in home: Yes firearms unloaded and locked: Yes do you feel safe at home: Yes Smoking Status: Former smoker Tobacco: How many years used: 1 quit status: has quit before second hand exposure: No alcohol intake: former (2-3/week when not ) substance use type: does not use during the past year weight has: remained stable well-balanced diet: daily or most days daily servings fruits/ve-4 caffeine: Yes (black tea) Type(s) of exercise: walking (treadmill at home. ) and weight lifting frequency: 3-4 times per week duration: 45-60 minutes/day Smoking Status: Former smoker alcohol intake frequency: other Substance Use Type: does not use Exam Narrative Exam Narrative: GENERAL: [27] year old patient appears stated age. Well-developed patient, in mild distress. HEAD: Atraumatic. Normocephalic. EYES: Pupils equal round and reactive. Extraocular motions intact. No scleral icterus. No injection or drainage. ENT: Nose without bleeding, purulent drainage. Throat without erythema, tonsillar hypertrophy or exudate. Airway patent. NECK: Trachea midline. Non tender CARDIOVASCULAR: Regular rate and rhythm without murmurs, gallops, or rubs. RESPIRATORY: Clear to auscultation. Breath sounds equal bilaterally. No wheezes, rales, or rhonchi. GASTROINTESTINAL: Abdomen soft, non-tender, nondistended. EXTREMITIES: No edema or joint tenderness. BACK: Nontender without deformity or crepitance. No flank tenderness. NEURO: AOx3. SKIN: No rash or erythema of visible areas Initial Vital Signs Initial Vital Signs: Vital Signs Temperature 98.1 F 01/22/23 11:23 Pulse Rate 93 H 01/22/23 11:23 Respiratory Rate 18 01/22/23 11:23 Blood Pressure 105/74 01/22/23 11:23 Pulse Oximetry 100 01/22/23 11:23 Oxygen Delivery Method Room Air 01/22/23 11:23 Course Orders Ordered: ED Orders 01/22/23 11:30 Complete Blood Count AUTO DIFF Stat Comprehensive Metabolic Panel Stat 01/22/23 11:33 US OB limited Stat Discontinued Medications Sodium Chloride (Normal Saline 0.9%) 1,000 mls @ 1,000 mls/hr IV BOLUS ONE Stop: 01/22/23 12:32 Last Infusion: 01/22/23 12:48 Dose: 0 mls/hr Documented By: Admin: 01/22/23 11:39 Dose: 1,000 mls/hr Documented By: CYNTHIA Ondansetron HCl (Ondansetron 4 Mg/2 Ml Inj) 4 mg IV NOW ONE Stop: 01/22/23 11:34 Last Admin: 01/22/23 11:39 Dose: 4 mg Documented By: CYNTHIA Vital Signs Vital signs: Vital Signs - 8 hr 01/22/23 11:23 Temperature 98.1 F Pulse Rate 93 H Respiratory Rate 18 Blood Pressure 105/74 Pulse Oximetry 100 Oxygen Delivery Method Room Air MDM - Nausea/Vomiting/Diarrhea Lab Data 01/22/23 11:30 01/22/23 11:30 Labs: Lab Results 01/22/23 01/22/23 Range/Units 11:30 11:30 WBC 8.7 (4.5-11.0) X10^3/uL RBC 4.32 (4.0-5.2) X10^6/uL Hgb 13.0 (12.0-16.0) g/dL Hct 37.2 (36-46) % MCV 86.1 (80-100) fL MCH 30.2 (26-34) PG MCHC 35.0 (30-36) % RDW 13.4 (11.6-14.8) % Plt Count 284 (150-400) X10^3/uL Neut % (Auto) 78.3 H (50-75) % Lymph % (Auto) 17.0 L (25-40) % [place] % (Auto) 4.2 (3-14) % Eos % (Auto) 0.1 L (2-4) % Baso % (Auto) 0.4 (0-2) % Neut # (Auto) 6800 (2502-1464) /uL Lymph # (Auto) 1500 (6833-1880) /uL [place] # (Auto) 400 (0-900) /uL Eos # (Auto) 0 (0-450) /uL Baso # (Auto) 0 (0-100) /uL Sodium 136 L (137-145) mmol/L Potassium 3.9 (3.4-5.1) mmol/L Chloride 103 (98-107) mmol/L Carbon Dioxide 24 (22-32) mmol/L BUN 7 (7-17) mg/dL Creatinine 0.48 L (0.52-1.04) mg/dL Estimated GFR > 60 (>60) mL/min BUN/Creatinine Ratio 14.6 (6-22) Glucose 91 (70-100) mg/dL Calcium 9.2 (8.4-10.2) mg/dL Total Bilirubin 0.6 (0.2-1.3) mg/dL AST 21 (14-36) IU/L ALT 16 (<35) IU/L Alkaline Phosphatase 56 (38-126) U/L Total Protein 8.0 (6.3-8.2) g/dL Albumin 4.1 (3.5-5.0) g/dL Globulin 3.9 (1.7-4.1) g/dL Albumin/Globulin Ratio 1.1 (1.0-2.8) MDM Narrative Medical decision making narrative: [27] year old patient presents with diarrhea, encouraged to present for ultrasound Multiple etiologies for patient's symptoms considered including, but not limited to: [Dehydration, electrolyte abnormality versus other] Prior Charts reviewed in our EMR Primary Historian: patient Labs reviewed and interpreted by myself: No significant abnormalities requiring specific intervention Imaging reviewed: Ultrasound demonstrates single living intrauterine at 17 weeks 3 days Patient's symptoms improved over duration of stay with above-stated therapies. Findings and discharge diagnosis discussed with patient/family followed by verbalization of understanding Return precautions discussed with patient/family whom verbalize understanding of diagnosis and plan Discharge Plan Departure Patient Disposition: Home Clinical Impression: Diarrhea Instructions: Diarrhea Activity Restrictions/Additional Instructions: *You have been diagnosed with [diarrhea, as we discussed your history physical exam as well as labs, ultrasound and response to therapies is reassuring] *What to do: *Please continue to take your regular medications as directed. [ ] New medication prescriptions sent to your pharmacy: [ ] [ ] New medication written as a paper prescription [ ] No new medications given *Please follow up with your primary care provider in 2-3 days, call for an appointment. Let them know you were seen in the Emergency Department and that we ask that you be seen in follow up. We will electronically transmit a record of today's note if your PCP is in our system *Return to Emergency Department if you should have any new, worsening or concerning symptoms, such as [fever greater than 101 F, shaking chills, worsening pain, persistent vomiting or other bothersome symptoms] Prescriptions: No Action ondansetron 4 mg tablet,disintegrating 4 mg PO Q6-8H PRN (Reason: nausea and vomiting) Qty: 20 2RF prenat.vits,parmjit,[id number] Tablet 1 tab PO DAILY bupropion HCl 150 mg tablet extended release 24 hr 150 mg PO DAILY sertraline 50 mg tablet 100 mg PO DAILY Rx Instructions: Take 1/2 tab for 3 days then 1 full tab cephalexin 500 mg capsule 500 mg PO TID Qty: 12 0RF ondansetron 4 mg tablet,disintegrating 4 mg PO Q8H PRN (Reason: nausea and vomiting) Qty: 15 0RF Referrals: ProviderFred [Primary Care Provider] - Stand Alone Forms: Patient Portal/API
[2023-01-22 13:13] VITALS: BP 102/63; PULSE 82; O2SAT 100
== END 2023-01-22 13:12 | disposition home or self-care (01) ==
PROVIDERS: Emergency Provider Emergency Medicine; Family Provider Specialist
DX: O26.892 Other specified pregnancy related conditions, second trimester (principal); R19.7 Diarrhea, unspecified; Z3A.17 17 weeks gestation of pregnancy
CPT/HCPCS: 36415; 76815; 80053; 85025; 96374; 99284; J2405

== ENCOUNTER 2023-01-27 08:57 | Emergency (ER) | payer OTHER, SELFPAY ==
[2023-01-27] VITALS (9 sets, daily range): BP systolic 105–122; BP diastolic 57–62; PULSE 70–86; RESP 15–18; TEMP 36.9; O2SAT 98–100; BMI 30.9
--- NOTE | 2023-01-27 09:25 | ED.GENADULT ---
HPI - General Adult General Chief complaint: Dizziness Stated complaint: Lightheaded, 4-5 mos. preg Time Seen by Provider: 01/27/23 09:12 Source: patient Mode of arrival: EMS Limitations: no limitations History of Present Illness HPI narrative: Patient is a 27-year-old otherwise healthy female. She is 18 weeks . with an uncomplicated up to this point. States she went to bed last night without any issues. When she woke up this morning she felt very flushed. She did have an episode of diarrhea. No vomiting. States she just in feel very well. She went and dropped her kids off and then when she was at work she became very lightheaded. She states she felt like she was going to pass out. She laid herself down onto the ground. There potentially was a very short period of time where she would lost consciousness. She did not hit her head. She states she still feels very flushed. She is not having any chest pain or shortness of breath. No abdominal pain. No urinary symptoms. No cramping. No vaginal bleeding nor loss of fluid. Patient's is in the room as well. He states he has no symptoms. Related Data Home Medications Medication Instructions Recorded Confirmed prenat.vits,parmjit,[id number] 1 tab PO DAILY 09/17/20 01/05/23 bupropion HCl 150 mg 24 hr tablet, 150 mg PO DAILY 11/04/22 01/05/23 extended release sertraline 50 mg tablet 100 mg PO DAILY Depression 11/04/22 01/05/23 Previous Rx's Medication Instructions Recorded ondansetron 4 mg disintegrating 4 mg PO Q6-8H PRN nausea and 12/02/22 tablet vomiting #20 tabs cephalexin 500 mg capsule 500 mg PO TID #12 caps 12/16/22 ondansetron 4 mg disintegrating 4 mg PO Q8H PRN nausea and 12/16/22 tablet vomiting #15 tabs nitrofurantoin 100 mg PO Q12H 5 days #10 caps 01/27/23 monohydrate/macrocrystals 100 mg capsule (Macrobid) Allergies Allergy/AdvReac Type Severity Reaction Status Date / Time No Known Drug Allergies Allergy Verified 01/27/23 09:06 Review of Systems Review of Systems ROS Unobtainable: All systems reviewed & are unremarkable except as noted in HPI and below Patient History Medical History Abnormal Pap smear of cervix (~2017) Anemia (~2013) Healthy adult Ovarian cyst (~2019) Painful menstrual periods (~2019) Pelvic pain affecting Right lower quadrant pain Surgical History Anesthesia Delivery by section (~04/25/21) H/O: section History of section [place] teeth removed (~2013) Family History Grandfather Stroke Heart disease Pacemaker Mother No problems noted. Father Hyperlipidemia Grandmother No problems noted. Grandfather Alcoholic Suicide Grandmother No problems noted. Sister Uterine fibroid History of partial hysterectomy Social History marital status: number of children: 3 household members: spouse and children lives independently: Yes caregiver/support person: No housing: house pets and animals: Yes (2 dogs, safe. ) education level: college (AA degree, working on Bachelor's in Education. ) occupational status: employed ([employer] duty [employer], works in [employer]) current occupational exposures/hazards: No renetta/oriental orthodox: Catholic special renetta needs: No travel history: recent ([place], no illness) seatbelt use: always water heater temp set < 120 deg: Yes working smoke detector in home: Yes fire extinguisher in home: Yes carbon monox detector in home: Yes firearms in home: Yes firearms unloaded and locked: Yes do you feel safe at home: Yes Smoking Status: Former smoker Tobacco: How many years used: 1 quit status: has quit before second hand exposure: No alcohol intake: former (2-3/week when not ) substance use type: does not use during the past year weight has: remained stable well-balanced diet: daily or most days daily servings fruits/ve-4 caffeine: Yes (black tea) Type(s) of exercise: walking (treadmill at home. ) and weight lifting frequency: 3-4 times per week duration: 45-60 minutes/day Smoking Status: Former smoker alcohol intake frequency: other Substance Use Type: does not use Exam Initial Vital Signs Initial Vital Signs: Vital Signs Temperature 98.4 F 01/27/23 09:00 Pulse Rate 80 01/27/23 09:00 Respiratory Rate 15 01/27/23 09:00 Blood Pressure 122/59 L 01/27/23 09:00 Pulse Oximetry 99 01/27/23 09:00 Oxygen Delivery Method Room Air 01/27/23 09:00 Const General: cooperative, comfortable and No ill appearing HENMT Face and sinus: other (Flushed cheeks) Mouth: moist mucous membranes Throat: posterior oropharynx normal Chest Chest: normal inspection of the chest Resp Effort & Inspection: normal respiratory effort Auscultation: clear to auscultation bilaterally Cardio Rate: regular rate Rhythm: regular rhythm GI Other: Gravid abdomen Skin Other: Flushed cheeks but no urticaria. Neuro General: patient alert, patient awake and moves all extremities Extrem General: capillary refill normal Psych Appearance: grossly normal Course Orders Ordered: ED Orders 01/27/23 09:09 EKG-12 Lead Stat 01/27/23 09:23 Complete Blood Count AUTO DIFF Stat Comprehensive Metabolic Panel Stat Lipase Stat Magnesium Stat PTT Partial Thromboplastin Esth Stat Prothrombin Time INR Stat Troponin & CK Cardiac Panel Stat 01/27/23 09:33 Respiratory Panel (Film Array) Stat 01/27/23 10:01 Urine Microscopic Stat 01/27/23 11:44 Urine Culture Stat Discontinued Medications Sodium Chloride (Normal Saline 0.9%) 1,000 mls @ 1,000 mls/hr IV BOLUS ONE Stop: 01/27/23 10:23 Last Infusion: 01/27/23 10:20 Dose: 0 mls/hr Documented By: Admin: 01/27/23 09:47 Dose: 1,000 mls/hr Documented By: MURIEL(2) Vital Signs Vital signs: Vital Signs - 8 hr 01/27/23 09:00 01/27/23 09:05 01/27/23 09:30 Temperature 98.4 F Pulse Rate 80 86 78 Respiratory Rate 15 Blood Pressure 122/59 L Pulse Oximetry 99 99 99 Oxygen Delivery Method Room Air 01/27/23 09:34 01/27/23 09:34 01/27/23 10:02 Temperature Pulse Rate 80 Respiratory Rate Blood Pressure 112/62 105/57 L Pulse Oximetry 99 Oxygen Delivery Method 01/27/23 10:02 01/27/23 10:30 01/27/23 10:30 Temperature Pulse Rate 81 70 Respiratory Rate Blood Pressure 106/59 L Pulse Oximetry 100 100 Oxygen Delivery Method 01/27/23 11:00 01/27/23 11:00 01/27/23 11:30 Temperature Pulse Rate 83 Respiratory Rate Blood Pressure 107/57 L 105/59 L Pulse Oximetry 100 Oxygen Delivery Method 01/27/23 11:30 Temperature Pulse Rate 77 Respiratory Rate Blood Pressure Pulse Oximetry 98 Oxygen Delivery Method Medical Decision Making Lab Data 01/27/23 09:23 01/27/23 09:23 Labs: Lab Results 01/27/23 01/27/23 01/27/23 Range/Units 09: 09: 09:23 WBC 7.4 (4.5-11.0) X10^3/uL RBC 4.03 (4.0-5.2) X10^6/uL Hgb 12.0 (12.0-16.0) g/dL Hct 35.0 L (36-46) % MCV 86.8 (80-100) fL MCH 29.9 (26-34) PG MCHC 34.4 (30-36) % RDW 12.8 (11.6-14.8) % Plt Count 256 (150-400) X10^3/uL Neut % (Auto) 68.0 (50-75) % Lymph % (Auto) 24.9 L (25-40) % [place] % (Auto) 5.7 (3-14) % Eos % (Auto) 0.6 L (2-4) % Baso % (Auto) 0.8 (0-2) % Neut # (Auto) 5000 (8885-0311) /uL Lymph # (Auto) 1800 (0662-2383) /uL [place] # (Auto) 400 (0-900) /uL Eos # (Auto) 0 (0-450) /uL Baso # (Auto) 100 (0-100) /uL PT 11.7 (10.1-12.7) SECONDS INR 1.0 (0.9-1.3) APTT 28 (26-36) SECONDS Sodium 136 L (137-145) mmol/L Potassium 3.8 (3.4-5.1) mmol/L Chloride 105 (98-107) mmol/L Carbon Dioxide 24 (22-32) mmol/L BUN 9 (7-17) mg/dL Creatinine 0.53 (0.52-1.04) mg/dL Estimated GFR > 60 (>60) mL/min BUN/Creatinine Ratio 17.0 (6-22) Glucose 76 (70-100) mg/dL Calcium 9.1 (8.4-10.2) mg/dL Magnesium 1.7 (1.6-2.3) mg/dL Total Bilirubin 0.6 (0.2-1.3) mg/dL AST 20 (14-36) IU/L ALT 13 (<35) IU/L Alkaline Phosphatase 57 (38-126) U/L Total Creatine Kinase 70 (30-135) U/L CK-MB (CK-2) TNP CK-MB (CK-2) Rel Index TNP Troponin I < 0.012 (0.01-0.034) ng/mL Total Protein 7.6 (6.3-8.2) g/dL Albumin 3.9 (3.5-5.0) g/dL Globulin 3.7 (1.7-4.1) g/dL Albumin/Globulin Ratio 1.1 (1.0-2.8) Lipase 111 (23-300) U/L Urine RBC (0-5/HPF) Urine WBC (0-5/HPF) Ur Squamous Epith Cells (0-5/HPF) Urine Bacteria (None) Chlamy pneumoniae PCR (Not Detect) Adenovirus (PCR) (Not Detect) B. pertussis DNA (PCR) (Not Detecte) B.parapertussis DNA PCR (Not Detecte) Coronavirus OC43 (PCR) (Not Detect) Coronavirus HKU1 (PCR) (Not Detect) Coronavirus 229E (PCR) (Not Detect) SARS-CoV-2 (PCR) (Not Detecte) Coronavirus NL63 (PCR) (Not Detect) Human Metapneumovir PCR (Not Detect) Influenza Type A (PCR) (Not Detect) Influenza Type B (PCR) (Not Detect) M. pneumoniae (PCR) (Not Detect) Parainfluenza 1 (PCR) (Not Detect) Parainfluenza 2 (PCR) (Not Detect) Parainfluenza 3 (PCR) (Not Detect) Parainfluenza 4 (PCR) (Not Detect) RSV (PCR) (Not Detect) Entero/Rhino (PCR) (Not Detect) 01/27/23 01/27/23 Range/Units 09:33 10:01 WBC (4.5-11.0) X10^3/uL RBC (4.0-5.2) X10^6/uL Hgb (12.0-16.0) g/dL Hct (36-46) % MCV (80-100) fL MCH (26-34) PG MCHC (30-36) % RDW (11.6-14.8) % Plt Count (150-400) X10^3/uL Neut % (Auto) (50-75) % Lymph % (Auto) (25-40) % [place] % (Auto) (3-14) % Eos % (Auto) (2-4) % Baso % (Auto) (0-2) % Neut # (Auto) (1536-7890) /uL Lymph # (Auto) (4820-9489) /uL [place] # (Auto) (0-900) /uL Eos # (Auto) (0-450) /uL Baso # (Auto) (0-100) /uL PT (10.1-12.7) SECONDS INR (0.9-1.3) APTT (26-36) SECONDS Sodium (137-145) mmol/L Potassium (3.4-5.1) mmol/L Chloride (98-107) mmol/L Carbon Dioxide (22-32) mmol/L BUN (7-17) mg/dL Creatinine (0.52-1.04) mg/dL Estimated GFR (>60) mL/min BUN/Creatinine Ratio (6-22) Glucose (70-100) mg/dL Calcium (8.4-10.2) mg/dL Magnesium (1.6-2.3) mg/dL Total Bilirubin (0.2-1.3) mg/dL AST (14-36) IU/L ALT (<35) IU/L Alkaline Phosphatase (38-126) U/L Total Creatine Kinase (30-135) U/L CK-MB (CK-2) CK-MB (CK-2) Rel Index Troponin I (0.01-0.034) ng/mL Total Protein (6.3-8.2) g/dL Albumin (3.5-5.0) g/dL Globulin (1.7-4.1) g/dL Albumin/Globulin Ratio (1.0-2.8) Lipase (23-300) U/L Urine RBC None seen (0-5/HPF) Urine WBC 0-1/hpf (0-5/HPF) Ur Squamous Epith Cells 0-1 /hpf (0-5/HPF) Urine Bacteria Many (>30) H (None) Chlamy pneumoniae PCR Not detected (Not Detect) Adenovirus (PCR) Not detected (Not Detect) B. pertussis DNA (PCR) Not detected (Not Detecte) B.parapertussis DNA PCR Not detected (Not Detecte) Coronavirus OC43 (PCR) Not detected (Not Detect) Coronavirus HKU1 (PCR) Not detected (Not Detect) Coronavirus 229E (PCR) Not detected (Not Detect) SARS-CoV-2 (PCR) Not detected (Not Detecte) Coronavirus NL63 (PCR) Not detected (Not Detect) Human Metapneumovir PCR Not detected (Not Detect) Influenza Type A (PCR) Not detected (Not Detect) Influenza Type B (PCR) Not detected (Not Detect) M. pneumoniae (PCR) Not detected (Not Detect) Parainfluenza 1 (PCR) Not detected (Not Detect) Parainfluenza 2 (PCR) Not detected (Not Detect) Parainfluenza 3 (PCR) Not detected (Not Detect) Parainfluenza 4 (PCR) Not detected (Not Detect) RSV (PCR) Not detected (Not Detect) Entero/Rhino (PCR) Not detected (Not Detect) Point of Care Testing Glucose POC 125 Urine Dip Bedside Urine Glucose Negative Bedside Urine Bilirubin - Negative Bedside Urine Ketone - Negative Urine Specific [place] 1.010 Bedside Urine Occult Blood - Negative Bedside Urine pH 7.0 Bedside Urine Protein - Negative Bedside Urine Urobilinogen - Negative Bedside Urine Nitrite + Positive Bedside Urine Leukocytes - Negative Esterase Point of care testing: Point of Care Testing Glucose POC 125 Urine Dip Bedside Urine Glucose Negative Bedside Urine Bilirubin - Negative Bedside Urine Ketone - Negative Urine Specific [place] 1.010 Bedside Urine Occult Blood - Negative Bedside Urine pH 7.0 Bedside Urine Protein - Negative Bedside Urine Urobilinogen - Negative Bedside Urine Nitrite + Positive Bedside Urine Leukocytes - Negative Esterase ECG Data Attestation: I personally reviewed and interpreted this ECG as follows: Interpretation: Sinus rhythm Ventricular rate 82 Normal axis Normal QRS Normal QTC No ST T wave changes MDM Narrative Medical decision making narrative: Patient does have a nitrite positive urine today. Review of her medical record shows that she has had a urinary tract infection in the past. She states she just completed a course of antibiotics but does not know specifically what it was. It appears she was seen here in the emergency department was initially started on Keflex however she states she received a call from the pharmacy and a antibiotic which apparently was Macrobid was prescribed for her so she stopped the Keflex started taking the Macrobid. Review of her medical records does show a pansensitive E coli from the urine cultures. Unsure as to why she was switched to Macrobid. I did discuss this with her. We did discuss how this potentially could be the cause of why she was feeling poorly today. She is tolerating oral intake. A urine culture was pending at the time of her discharge and she understands that she may receive a call to switch antibiotics again however until then we will place her back on Macrobid. She will talk with her primary OB doctor about this. Patient also was mildly hypoglycemic today. Her blood sugar improved with eating. She states she did not have breakfast this morning but this is not necessarily unusual for her. I did inform her that she does need to maintain a balanced diet and that she should talk with her OB doctor about her low blood sugar today to see if there is any further workup needed. Patient ambulated without issue. Will discharge patient home with strict return precautions. Both the patient and who is at bedside expressed understanding and agreement with plan. Discharge Plan Departure Patient Disposition: Home Clinical Impression: Hypoglycemia, UTI (urinary tract infection) Instructions: DI for Urinary Tract Infection (UTI), DI for Hypoglycemia Activity Restrictions/Additional Instructions: There was a urine culture pitting at the time of your discharged today and we will contact you if we need to change any antibiotics. We will place you back on antibiotics based on the urinalysis today. I do recommend you talk with your OB doctor about this. It is also important that you eat a balanced diet you should talk with your primary OB doctor about your low blood sugar today. Return to the emergency department for new or worsening symptoms. Prescriptions: New nitrofurantoin monohyd/m-cryst [Macrobid] 100 mg capsule 100 mg PO Q12H 5 Days Qty: 10 0RF Rx Instructions: must administer with a meal/food No Action ondansetron 4 mg tablet,disintegrating 4 mg PO Q6-8H PRN (Reason: nausea and vomiting) Qty: 20 2RF prenat.vits,parmjit,[id number] Tablet 1 tab PO DAILY bupropion HCl 150 mg tablet extended release 24 hr 150 mg PO DAILY sertraline 50 mg tablet 100 mg PO DAILY Rx Instructions: Take 1/2 tab for 3 days then 1 full tab cephalexin 500 mg capsule 500 mg PO TID Qty: 12 0RF ondansetron 4 mg tablet,disintegrating 4 mg PO Q8H PRN (Reason: nausea and vomiting) Qty: 15 0RF Referrals: Miscellaneous,Doctor, MD [Non-Staff] - Stand Alone Forms: Patient Portal/API
[2023-01-27 09:30] LABS: Add Manual Diff / Slide Review NO; Basophils Absolute Auto 100 /uL (0-100); Basophils Percent Auto 0.8 % (0-2); Eosinophils Absolute Auto 0 /uL (0-450); Eosinophils Percent Auto 0.6 % (2-4); Lymphocytes Absolute Auto 1800 /uL (1100-4500); Lymphocytes Percent Auto 24.9 % (25-40); Mean Corpuscular HGB Conc 34.4 % (30-36); Mean Corpuscular Hemoglobin 29.9 PG (26-34); Mean Corpuscular Volume 86.8 fL (80-100); Monocytes Absolute Auto 400 /uL (0-900); Monocytes Percent Auto 5.7 % (3-14); Neutrophils Absolute Auto 5000 /uL (1500-7000); Platelet Count 256 X10^3/uL (150-400); Red Blood Cell Count 4.03 X10^6/uL (4.0-5.2); Red Cell Distribution Width 12.8 % (11.6-14.8); White Blood Cell Count 7.4 X10^3/uL (4.5-11.0)
[2023-01-27 09:41] LABS: Prothrombin Time 11.7 SECONDS (10.1-12.7)
[2023-01-27 09:43] LABS: PTT Partial Thromboplastin Tim 28 SECONDS (26-36)
[2023-01-27 09:47] LABS: Alanine Aminotransferase 13 IU/L (<35); Albumin 3.9 g/dL (3.5-5.0); Albumin Globulin Ratio 1.1 (1.0-2.8); Alkaline Phosphatase 57 U/L (38-126); Aspartate Aminotransferase 20 IU/L (14-36); Bilirubin Total 0.6 mg/dL (0.2-1.3); Blood Urea Nitrogen 9 mg/dL (7-17); Calcium 9.1 mg/dL (8.4-10.2); Carbon Dioxide 24 mmol/L (22-32); Chloride 105 mmol/L (98-107); Creatine Kinase 70 U/L (30-135); Estimated Glomerular Filt Rate > 60 mL/min (>60); Globulin 3.7 g/dL (1.7-4.1); Glucose 76 mg/dL (70-100); HEMOLYSIS < 15 (0-50); Lipase 111 U/L (23-300); Magnesium 1.7 mg/dL (1.6-2.3); Potassium 3.8 mmol/L (3.4-5.1); Sodium 136 mmol/L (137-145); Total Protein 7.6 g/dL (6.3-8.2)
[2023-01-27] MEDS: SODIUM CHLORIDE 0.9% 1,000 ML 1000 ML IV (09:47)
[2023-01-27 09:57] LABS: Troponin I < 0.012 ng/mL (0.01-0.034)
--- NOTE | 2023-01-27 10:36 | PC.NURSE ---
BG lab value 76. Physician advised. Pt given apple juice, pnut butter w/ crackers and gingerale. Will recheck BG in 30 mins.
[2023-01-27 10:40] LABS: Adenovirus Not Detected (Not Detect); B. parapertussis Not Detected (Not Detecte); Bordetella pertussis Not Detected (Not Detecte); Chlamydophila pneumoniae Not Detected (Not Detect); Coronavirus 229E Not Detected (Not Detect); Coronavirus HKU1 Not Detected (Not Detect); Coronavirus NL 63 Not Detected (Not Detect); Coronavirus OC43 Not Detected (Not Detect); Human Metapneumovirus Not Detected (Not Detect); Human Rhinovirus/Enterovirus Not Detected (Not Detect); Influenza A Not Detected (Not Detect); Influenza B Not Detected (Not Detect); Mycoplasma pneumoniae Not Detected (Not Detect); Parainfluenza Virus 1 Not Detected (Not Detect); Parainfluenza Virus 2 Not Detected (Not Detect); Parainfluenza Virus 3 Not Detected (Not Detect); Parainfluenza Virus 4 Not Detected (Not Detect); Respiratory Syncytial Virus Not Detected (Not Detect); SARS- CoV-2 Not Detected (Not Detecte)
[2023-01-27 10:41] LABS: Bacteria Urine Many (>30); RBC Urine None Seen (0-5/HPF); Squamous Epithelial Cell Urine 0-1 /HPF (0-5/HPF); WBC Urine 0-1/HPF (0-5/HPF)
== END 2023-01-27 12:29 | disposition home or self-care (01) ==
PROVIDERS: Emergency Provider Emergency Medicine; PCP Physician Assistant
DX: O23.42 Unspecified infection of urinary tract in pregnancy, second trimester (principal); N39.0 Urinary tract infection, site not specified; E16.2 Hypoglycemia, unspecified; R07.9 Chest pain, unspecified; Z3A.18 18 weeks gestation of pregnancy; Z20.822 Contact with and (suspected) exposure to COVID-19
CPT/HCPCS: 36415; 80053; 81003; 81015; 82550; 82962; 83690; 83735; 84484; 85025; 85610; 85730; 87077; 87086; 87186; 87633; 93005; 93010; 96360; 99284

== ENCOUNTER → 2023-02-13 14:13 | Outpatient (CLI) | payer OTHER, SELFPAY ==
[2023-02-17 20:36] LABS: Gest Age on Col Date 19.7 weeks (.); Insulin Dep Diabetes No (.); OSBR Risk 1IN 10000 (.); Results Report (.); Test Results *Screen Negative* (.)
== END ==
PROVIDERS: Family Provider Specialist; PCP Physician Assistant; Referring Provider Obstetrics & Gynecology; Visit Provider Obstetrics & Gynecology
DX: Z34.82 Encounter for supervision of other normal pregnancy, second trimester (principal); Z3A.19 19 weeks gestation of pregnancy
CPT/HCPCS: 36415; 82105

== ENCOUNTER → 2023-02-16 12:26 | Outpatient (CLI) | payer OTHER, SELFPAY ==
--- NOTE | 2023-02-16 12:27 | DI.US.S_ITS ---
PROCEDURE: US OB >= 14 WEEKS FETUS INDICATIONS: ANATOMY OUTSIDE/PRIOR DATING DATA: Last menstrual period (LMP): 09/22/22 LMP-based estimated date of delivery (CHELSEA): 06/29/23. First dating scan (date and location): 01/22/23. Estimated date of delivery (CHEL[place]) from first dating scan: Not available. The calculations are made using the clinical CHEL[place] of 06/29/23. TECHNIQUE: Real-time scanning was performed of the fetus, with image documentation and biometric measurements. Endovaginal scanning: Not performed COMPARISON: [facility], , OB >= 14 WEEKS FETUS, 01/05/2023, 13:48. FINDINGS: General: A single living intrauterine gestation is present. Presentation: Vertex. Placenta: Placental position is left and posterior , without previa. Amniotic fluid index: 16.8 cm, normal range is 5-24 cm. Single deepest vertical pocket is 6.2 cm. heart rate: 141 beats per minute. Maternal cervical canal: Closed and 4.0 cm long. Normal lower limit is 2.5 cm. biometrics: Biparietal diameter: 4.5 cm, 19 weeks four days Head circumference: 17.3 cm, 19 weeks six days Abdominal circumference: 14.2 cm, 19 weeks four days Femur length: 3.3 cm, 20 weeks one day Clinically estimated gestational age: 21 weeks 0 days Composite gestational age from present scan: 19 weeks six days Estimated weight and percentile: 316 g, 5th percentile Anatomic survey: Neuro: Ventricles are non-dilated at less than 10 mm. Cisterna magna is normal at 3-11 mm. Cerebellum is normal in size and morphology. Nuchal skin fold: Normal at less than 6 mm between 14-21 weeks gestational age. Face: Nose and lips, facial profile are normal. Spine: No evidence for spina bifida. Heart: Suboptimal views of the heart and outflow tracts. Diaphragm: Diaphragm is intact. Stomach: Left-sided stomach is present. Kidneys: No hydronephrosis. Normal is less than 5 mm in 2nd trimester, less than 7 mm in 3rd trimester. Cord: 3-vessel cord has orthotopic insertion. Bladder: Normal in size. Extremities: All 4 extremities identified. IMPRESSION: 1. Single living intrauterine with growth eight days behind the clinically assigned gestational age. 2. Estimated weight at the 5th percentile. 3. Suboptimal visualization of heart and cardiac outflow tracts. Follow-up in one week is recommended. There is otherwise normal anatomy. We strive to produce accurate, complete, and clear reports of imaging services. To assist us in improving patient care, this report was composed using standard report templates and voice recognition software. Therefore, it may contain abnormal punctuation, insertions and/or omissions. Occasional wrong-word or sound-alike substitutions may occur. Though we review the report and make efforts to correct it, we do recommend that the report be read carefully in proper context to recognize any text inaccuracies. Dictated by: Claudette Hirsch M.D. on 02/16/2023 at 17:50 Approved by: Claudette Hirsch M.D. on 02/16/2023 at 17:57
== END ==
PROVIDERS: Family Provider Specialist; PCP Physician Assistant; Referring Provider Obstetrics & Gynecology; Visit Provider Obstetrics & Gynecology
DX: Z34.82 Encounter for supervision of other normal pregnancy, second trimester (principal); Z3A.19 19 weeks gestation of pregnancy
CPT/HCPCS: 76811

== ENCOUNTER → 2023-02-23 12:25 | Outpatient (CLI) | payer OTHER, SELFPAY ==
--- NOTE | 2023-02-23 12:26 | DI.US.S_ITS ---
PROCEDURE: US OB FOLLOW UP INDICATIONS: Follow up anatomy scan OUTSIDE/PRIOR DATING DATA: Last menstrual period (LMP): 09/22/2022 LMP-based estimated date of delivery (CHELSEA): 06/29/2023. First dating scan (date and location): 11/06/2022. Estimated date of delivery (CHELSEA) from first dating scan: 06/29/2023 Working CHELSEA is 07/05/2023 as provided by the referring clinician. TECHNIQUE: Real-time scanning was performed of the fetus, with image documentation and biometric measurements. COMPARISON: None. FINDINGS: General: A single living intrauterine gestation is present. Presentation: Vertex. Placenta: Placental position is posterior , without previa. Amniotic fluid index: 13.7 cm, normal range is 5-24 cm. Single deepest vertical pocket is 4.5 cm. heart rate: 147 beats per minute. Maternal cervical canal: 4.3 cm long. Normal lower limit is 2.5 cm. biometrics: Biparietal diameter: 21 weeks 1 day Head circumference: 20 weeks 5 days Abdominal circumference: 21 weeks Femur length: 21 weeks Clinically estimated gestational age: 21 weeks 1 day Composite gestational age from present scan: 21 weeks 0 days Estimated weight and percentile: 3D 9 g, 35th percentile Other: Normal appearance of the four-chamber heart and LVOT. RVOT suboptimally visualized. IMPRESSION: RVOT again suboptimally visualized; otherwise normal appearance of the four-chamber heart and LVOT. Follow-up recommended. We strive to produce accurate, complete, and clear reports of imaging services. To assist us in improving patient care, this report was composed using standard report templates and voice recognition software. Therefore, it may contain abnormal punctuation, insertions and/or omissions. Occasional wrong-word or sound-alike substitutions may occur. Though we review the report and make efforts to correct it, we do recommend that the report be read carefully in proper context to recognize any text inaccuracies. Dictated by: Curt BANKS Interpreted: Wil Gorman MD on 02/23/2023 at 13:28 Transcribed by: NUNO on 02/23/2023 at 13:31 Approved by: Wil Gorman M.D. on 02/24/2023 at 22:37
== END ==
PROVIDERS: Family Provider Specialist; PCP Physician Assistant; Referring Provider Obstetrics & Gynecology; Visit Provider Obstetrics & Gynecology
DX: Z36.2 Encounter for other antenatal screening follow-up (principal); Z3A.21 21 weeks gestation of pregnancy
CPT/HCPCS: 76816

== ENCOUNTER 2023-03-08 11:28 | Outpatient (CLI) | payer OTHER, SELFPAY ==
[2023-03-08 11:55] LABS: Appearance Urine UA CLEAR; Bilirubin Urine UA NEGATIVE (NEGATIVE); Color Urine UA YELLOW; Glucose Urine UA NEGATIVE (Negative); Ketones Urine UA NEGATIVE (NEGATIVE); Leukocyte Esterase Urine UA TRACE (NEGATIVE); Nitrite Urine UA NEGATIVE (Negative); Occult Blood Urine UA NEGATIVE (Negative); Protein Urine UA NEGATIVE (Negative)
[2023-03-08 12:19] LABS: RBC Urine 1-5/HPF (0-5/HPF); Squamous Epithelial Cell Urine 1-5 /HPF (0-5/HPF); WBC Urine 1-5/HPF (0-5/HPF)
[2023-03-08 12:20] LABS: Bacteria Urine Few (2-10); Culture Indicated Urine Cult Not Indicated
[2023-03-08] MEDS: ACETAMINOPHEN 325 MG TABLET 975 MG PO (12:42)
--- NOTE | 2023-03-08 12:49 | PM.OBTRLD ---
Visit Information Visit Information Date of evaluation: 03/08/23 Primary OB Provider: Percy Sandhu On-call OB Provider: Steffany Sprague Comments/Additional reasons for admission: 27yo at 23w0d here due to low back pain and cramping. The pt reports that last night she developed severe low back pain. It limited her ability to walk. She took Tylenol and was able to sleep through the night. This morning, the pain was again present and she had numbness/shooting pain into her legs. She also had menstrual-style cramping that was erratic, lasting up to 15 minutes at a time. She denies any vaginal bleeding or LOF. She is feeling her baby move regularly. She denies any trauma to her back, heavy lifting, or increased activity yesterday. She had one episode of urinary incontinence yesterday, but otherwise denies any urinary incontinence or saddle anesthesia. She has limited mobility today, but is able to ambulate. It feels better when she leans forward. [facility] Medical History Abnormal Pap smear of cervix (~2017) Anemia (~2013) Healthy adult Ovarian cyst (~2019) Painful menstrual periods (~2019) Pelvic pain affecting Right lower quadrant pain Surgical History Anesthesia Delivery by section (~04/25/21) H/O: section History of section [place] teeth removed (~2013) Family History Grandfather Stroke Heart disease Pacemaker Mother No problems noted. Father Hyperlipidemia Grandmother No problems noted. Grandfather Alcoholic Suicide Grandmother No problems noted. Sister Uterine fibroid History of partial hysterectomy Social History marital status: number of children: 3 household members: spouse and children lives independently: Yes caregiver/support person: No housing: house pets and animals: Yes (2 dogs, safe. ) education level: college (AA degree, working on Bachelor's in Education. ) occupational status: employed (Active duty [employer], works in [employer]) current occupational exposures/hazards: No renetta/bahai: Amish special renetta needs: No travel history: recent ([place], no illness) seatbelt use: always water heater temp set < 120 deg: Yes working smoke detector in home: Yes fire extinguisher in home: Yes carbon monox detector in home: Yes firearms in home: Yes firearms unloaded and locked: Yes do you feel safe at home: Yes Smoking Status: Former smoker Tobacco: How many years used: 1 quit status: has quit before second hand exposure: No alcohol intake: former (2-3/week when not ) substance use type: does not use during the past year weight has: remained stable well-balanced diet: daily or most days daily servings fruits/ve-4 caffeine: Yes (black tea) Type(s) of exercise: walking (treadmill at home. ) and weight lifting frequency: 3-4 times per week duration: 45-60 minutes/day Exam Narrative Exam Narrative: Gen: NAD, sitting comfortably in bed, appears well Back: nontender to palpation, positive straight leg raise bilaterally Objective Labs Labs: Laboratory Results - last 24 hr 03/08/23 11:40 Urine Color Yellow Urine Appearance Clear Urine pH 7.0 Ur Specific [place] 1.010 Urine Protein Negative Urine Glucose (UA) Negative Urine Ketones Negative Urine Occult Blood Negative Urine Nitrate Negative Urine Bilirubin Negative Urine Urobilinogen 1.0 Ur Leukocyte Esterase Trace H Urine RBC 1-5/hpf Urine WBC 1-5/hpf Ur Squamous Epith Cells 1-5 /hpf Urine Bacteria Few (2-10) H Ur Culture Indicated? Cult not indicated Evaluation Evaluation Baseline heart rate: 140 Variability: Moderate (11-25) monitor accelerations: Present Monitor Decelerations: Absent Category of Tracing: Reactive Diagnosis, Plan/Disposition Final Diagnosis (1) Low back pain potentially associated with radiculopathy: Status: Acute (2) Cramping affecting , antepartum: Status: Acute Plan/Disposition Plan: 27yo at 23w0d here due to low back pain and cramping. Cramping has now resolved. No contractions on monitoring, no concern for labor. Back pain is persistent. Pt without consistent urinary incontinence or saddle anesthesia, making emergent condition such as cauda equina syndrome unlikely. Discussed stretching, heat, continued Tylenol 1000mg q8hrs. Reviewed strict return precautions including worsening numbness, new incontinence, absence of sensation in vaginal region. Suspect pain should improve significantly in the next 24-48hrs. Pts does leave in 2 days, her mother in law will be coming to stay with them next week. Suggest she see if this could be moved up. If pain not improving, consider PT vs OMT. OB Disposition: home
== END 2023-03-08 12:15 | disposition home or self-care (01) ==
LOC: LABOR 11:32 → OB 03-13 06:09
PROVIDERS: Family Medicine; Family Provider Specialist; PCP Physician Assistant; Referring Provider Obstetrics & Gynecology; Visit Provider Obstetrics & Gynecology
DX: O26.892 Other specified pregnancy related conditions, second trimester (principal); M54.50 Low back pain, unspecified; R25.2 Cramp and spasm; Z3A.23 23 weeks gestation of pregnancy
CPT/HCPCS: 59025; 81001; G0378; G0379

== ENCOUNTER → 2023-04-23 10:37 | Outpatient (CLI) | payer OTHER, SELFPAY ==
[2023-04-23 12:08] LABS: Appearance Urine UA SL CLOUDY; Bilirubin Urine UA NEGATIVE (NEGATIVE); Color Urine UA YELLOW; Glucose Urine UA NEGATIVE (Negative); Ketones Urine UA NEGATIVE (NEGATIVE); Leukocyte Esterase Urine UA NEGATIVE (NEGATIVE); Nitrite Urine UA POSITIVE (Negative); Occult Blood Urine UA NEGATIVE (Negative); Protein Urine UA NEGATIVE (Negative); Specific Gravity Urine UA 1.015 (1.000-1.035)
[2023-04-23 12:31] LABS: Bacteria Urine Many (>30); Culture Indicated Urine Specimen Cultured; RBC Urine None Seen (0-5/HPF); Squamous Epithelial Cell Urine 0-1 /HPF (0-5/HPF); WBC Urine 1-5/HPF (0-5/HPF)
== END ==
PROVIDERS: Family Provider Specialist; PCP Physician Assistant; Referring Provider Obstetrics & Gynecology; Visit Provider Obstetrics & Gynecology
DX: R32 Unspecified urinary incontinence (principal)
CPT/HCPCS: 81001; 87077; 87086; 87186

== ENCOUNTER → 2023-04-27 08:30 | Outpatient (CLI) | payer OTHER, SELFPAY ==
[2023-04-27 10:53] LABS: Hematocrit 30.4 % (36-46); Hemoglobin 10.5 g/dL (12.0-16.0)
[2023-04-27 11:03] LABS: GTT (PREG) 1 Hour PP 50gm Dose 104 mg/dL (76-139)
== END ==
PROVIDERS: Family Provider Specialist; PCP Physician Assistant; Referring Provider Obstetrics & Gynecology; Visit Provider Obstetrics & Gynecology
DX: Z34.82 Encounter for supervision of other normal pregnancy, second trimester (principal); Z3A.26 26 weeks gestation of pregnancy
CPT/HCPCS: 36415; 82950; 85014; 85018

== ENCOUNTER 2023-04-28 09:04 | Observation (INO) | payer OTHER, SELFPAY ==
--- NOTE | 2023-04-28 11:53 | PM.OBTRLD ---
Visit Information Visit Information Date of evaluation: 04/28/23 Primary OB Provider: Percy Sandhu On-call OB Provider: Percy Sandhu Reason for Evaluation: Yes other Comments/Additional reasons for admission: Haleigh is a 27 yo at 30+2 wks EGA presenting to the Center with a 2-3 day history of numbness/tingling of both LE and a sense of heaviness/weakness. On 1 occasion yesterday, her legs were so weak that she could not get out of her vehicle and had to be carried by her . She feels as though both legs are swollen. She is not experienced any of these symptoms with previous pregnancies. She has not experienced any bowel or bladder issues or similar symptoms involving her upper extremities. Vital Signs Vital Signs: BP: 120/62 P: 103 T: 36.3C PFSH Medical History Abnormal Pap smear of cervix (~2017) Anemia (~2013) Healthy adult Ovarian cyst (~2019) Painful menstrual periods (~2019) Pelvic pain affecting Right lower quadrant pain Surgical History Anesthesia Delivery by section (~04/25/21) H/O: section History of section [place] teeth removed (~2013) Family History Grandfather Stroke Heart disease Pacemaker Mother No problems noted. Father Hyperlipidemia Grandmother No problems noted. Grandfather Alcoholic Suicide Grandmother No problems noted. Sister Uterine fibroid History of partial hysterectomy Social History marital status: number of children: 3 household members: spouse and children lives independently: Yes caregiver/support person: No housing: house pets and animals: Yes (2 dogs, safe. ) education level: college (AA degree, working on Bachelor's in Education. ) occupational status: employed (Active duty [employer], works in [employer]) current occupational exposures/hazards: No renetta/rastafarian: Zoroastrian special renetta needs: No travel history: recent ([place], no illness) seatbelt use: always water heater temp set < 120 deg: Yes working smoke detector in home: Yes fire extinguisher in home: Yes carbon monox detector in home: Yes firearms in home: Yes firearms unloaded and locked: Yes do you feel safe at home: Yes Smoking Status: Former smoker Tobacco: How many years used: 1 quit status: has quit before second hand exposure: No alcohol intake: former (2-3/week when not ) substance use type: does not use during the past year weight has: remained stable well-balanced diet: daily or most days daily servings fruits/ve-4 caffeine: Yes (black tea) Type(s) of exercise: walking (treadmill at home. ) and weight lifting frequency: 3-4 times per week duration: 45-60 minutes/day Review of Systems Review of Systems Narrative: Problem-specific ROS positives included in HPI Exam Const General: cooperative, comfortable and anxious Nutritional Appearance: average body habitus Orientation: alert and awake HENMT Head: normal to inspection, normocephalic and atraumatic Ears: hearing grossly normal bilaterally Face and sinus: normal facial exam Teeth and gingiva: dentition normal Eyes General: appearance normal, both eyes and all related structures Conjunctivae: conjunctivae normal Sclera: sclerae normal Pupils: PERRL EOM: EOM intact bilaterally Neck Neck: normal visual inspection Resp Effort & Inspection: normal respiratory effort and able to speak in complete sentences GI Inspection: normal to inspection Palpation: soft, no hepatosplenomegaly and No tender Uterus Location (Fundal Height): 30 Estimated Weight (lbs): 4 Back/Spine/Pelvis Back: normal to inspection Skin General: no rashes or lesions noted Neuro General: patient alert, patient awake, patient oriented x3 and moves all extremities Cranial Nerves: EOM intact bilaterally, facial strength normal, able to rotate head bilaterally and able to elevate shoulders bilaterally Cognition: normal cognition Speech: speech normal Gait: normal gait Motor: muscle tone normal throughout DTR's: Rt Biceps: 2+, Lt Biceps: 2+, Rt Patellar: 0, Lt Patellar: 0, Rt Ankle: 0 and Lt Ankle: 0 Plantar Reflexes: Equivocal: bilateral Extrem General: normal to inspection, full ROM, No calf tenderness, No muscle atrophy, No pedal edema and other (Lower extremities symmetrical) Right upper extremity: normal to inspection Left upper extremity: normal to inspection Right lower extremity: normal to inspection; no edema Left lower extremity: normal to inspection; no edema Psych Appearance: grossly normal Mental Status: mental status grossly normal Speech and Movement: speech and movement normal Mood: congruent mood Affect: normal affect Attitude: cooperative Thought Process: normal Thought Content: normal Judgment: judgment good Evaluation Evaluation Baseline heart rate: 135 Variability: Average (6-10) monitor accelerations: Present Monitor Decelerations: Absent Category of Tracing: Reactive Diagnosis, Plan/Disposition Final Diagnosis (1) Absent reflex of lower extremity: Status: Acute (2) Numbness in both legs: Status: Acute (3) : Status: Acute Problem details: Currently 30 weeks Plan/Disposition Plan: Although the patient's symptoms in the lower extremity may be due to , the complete absence of DTRs and whole leg decrease in sensation by pinprick compared to the abdomen are concerning and warrant expedited referral for neurologic evaluation. OB Disposition: home (With expedited referral to Neurology at [facility].)
== END 2023-04-28 13:40 | disposition home or self-care (01) ==
PROVIDERS: Admitting Provider Obstetrics & Gynecology; Family Provider Specialist; PCP Physician Assistant; Referring Provider Obstetrics & Gynecology; Visit Provider Obstetrics & Gynecology
DX: O26.893 Other specified pregnancy related conditions, third trimester (principal); R20.0 Anesthesia of skin; R53.1 Weakness; Z3A.30 30 weeks gestation of pregnancy
CPT/HCPCS: 59025; 99221; G0378; G0379

== ENCOUNTER 2023-05-01 10:25 | Observation (INO) | payer OTHER, SELFPAY ==
[2023-05-01 11:44] LABS: Appearance Urine UA CLEAR; Bilirubin Urine UA NEGATIVE (NEGATIVE); Color Urine UA YELLOW; Glucose Urine UA NEGATIVE (Negative); Ketones Urine UA NEGATIVE (NEGATIVE); Leukocyte Esterase Urine UA TRACE (NEGATIVE); Nitrite Urine UA NEGATIVE (Negative); Occult Blood Urine UA NEGATIVE (Negative); Protein Urine UA NEGATIVE (Negative); Specific Gravity Urine UA <=1.005 (1.000-1.035); Urobilinogen Urine UA 0.2 E.U./dL (0.2)
[2023-05-01 11:48] LABS: pH Urine UA 6.5 (4.5-8.0)
[2023-05-01 11:52] LABS: Bacteria Urine Occasional (0-1); Culture Indicated Urine Specimen Cultured; RBC Urine 1-5/HPF (0-5/HPF); Squamous Epithelial Cell Urine 0-1 /HPF (0-5/HPF); WBC Urine 1-5/HPF (0-5/HPF)
--- NOTE | 2023-05-01 12:46 | P.TNLD_ITS ---
Visit Information Visit Information Date of evaluation: 05/01/23 Primary OB Provider: Percy Sandhu On-call OB Provider: Adri Mccormack Reason for Evaluation: Yes rupture of membranes Comments/Additional reasons for admission: Decreased movement, uterine cramping Vital Signs Vital Signs: Blood pressure 116/63, pulse of 99, temperature 36.3? [facility] Medical History Abnormal Pap smear of cervix (~2017) Anemia (~2013) Healthy adult Ovarian cyst (~2019) Painful menstrual periods (~2019) Pelvic pain affecting Right lower quadrant pain Surgical History Anesthesia Delivery by section (~04/25/21) H/O: section History of section [place] teeth removed (~2013) Family History Grandfather Stroke Heart disease Pacemaker Mother No problems noted. Father Hyperlipidemia Grandmother No problems noted. Grandfather Alcoholic Suicide Grandmother No problems noted. Sister Uterine fibroid History of partial hysterectomy Social History marital status: number of children: 3 household members: spouse and children lives independently: Yes caregiver/support person: No housing: house pets and animals: Yes (2 dogs, safe. ) education level: college (AA degree, working on Bachelor's in Education. ) occupational status: employed (Active duty [employer], works in [employer]) current occupational exposures/hazards: No renetta/catholic: Bahai special renetta needs: No travel history: recent ([place], no illness) seatbelt use: always water heater temp set < 120 deg: Yes working smoke detector in home: Yes fire extinguisher in home: Yes carbon monox detector in home: Yes firearms in home: Yes firearms unloaded and locked: Yes do you feel safe at home: Yes Smoking Status: Former smoker Tobacco: How many years used: 1 quit status: has quit before second hand exposure: No alcohol intake: former (2-3/week when not ) substance use type: does not use during the past year weight has: remained stable well-balanced diet: daily or most days daily servings fruits/ve-4 caffeine: Yes (black tea) Type(s) of exercise: walking (treadmill at home. ) and weight lifting frequency: 3-4 times per week duration: 45-60 minutes/day Review of Systems Review of Systems Narrative: Patient had a gush of fluid followed by constant small amount of leakage of fluid from her vagina starting this a.m.. She was concerned about decreased movement. She also states she is been feeling some cramping every 8-10 minutes. No vaginal bleeding. No headaches. Exam Vital Signs (past 8 hours): Blood pressure 116/63, pulse 99, temperature 36.3? Narrative Exam Narrative: Patient's abdomen is soft, nontender. There are no palpable contractions. Uterus is gravid and nontender. Fetus is vertex. Speculum exam was performed and the vagina appears dry with the cervix closed. Digital exam cervix is long, closed, fetus is high. Ultrasound shows fetus in vertex position. Good movement. Normal amniotic fluid volume. Objective Labs Labs: Laboratory Results - last 24 hr 05/01/23 11:25 Urine Color Yellow Urine Appearance Clear Urine pH 6.5 Ur Specific [place] <=1.005 Urine Protein Negative Urine Glucose (UA) Negative Urine Ketones Negative Urine Occult Blood Negative Urine Nitrate Negative Urine Bilirubin Negative Urine Urobilinogen 0.2 Ur Leukocyte Esterase Trace H Urine RBC 1-5/hpf Urine WBC 1-5/hpf Ur Squamous Epith Cells 0-1 /hpf Urine Bacteria Occasional (0-1) Ur Culture Indicated? Specimen cultured Evaluation Evaluation Baseline heart rate: 130 Variability: Moderate (11-25) monitor accelerations: Present Monitor Decelerations: Absent Contraction Frequency (minutes): 0 Uterine Contraction Intensity: Mild Category of Tracing: Reactive Status: Category l Cervical dilation (cm): 0 Cervical effacement (%): 0 station: -4 Non-invasive Membranes Rupture Test: negative Comments: fibronectin collected UA was sent for culture but likelihood of infection is very low. Diagnosis, Plan/Disposition Final Diagnosis (1) Cramping affecting , antepartum: Status: Acute (2) Previous section complicating : Status: Acute (3) 30 weeks gestation of : Status: Acute Plan/Disposition Plan: Patient was monitored and push fluids with no feeling that her cramping had improved but she refused to stay any longer. Still no contractions picked up on the monitor. fibronectin negative. Patient is to call if her symptoms worsen or change. Especially if she continues to seek she is leaking fluid, vaginal bleeding, pain increases. OB Disposition: home
[2023-05-01 14:10] LABS: Fetal Fibronectin Negative
== END 2023-05-01 13:47 | disposition home or self-care (01) ==
PROVIDERS: Admitting Provider Obstetrics & Gynecology; Family Provider Specialist; PCP Physician Assistant; Referring Provider Obstetrics & Gynecology; Visit Provider Obstetrics & Gynecology
DX: Z03.71 Encounter for suspected problem with amniotic cavity and membrane ruled out (principal); O26.893 Other specified pregnancy related conditions, third trimester; O34.219 Maternal care for unspecified type scar from previous cesarean delivery; R10.9 Unspecified abdominal pain; Z3A.30 30 weeks gestation of pregnancy
CPT/HCPCS: 59025; 59050; 76815; 81001; 82731; 84112; 87086; G0378; G0379

== ENCOUNTER 2023-05-15 11:18 | Outpatient (CLI) | payer OTHER, SELFPAY ==
--- NOTE | 2023-05-19 18:22 | PM.CALLCOV.1 ---
Call Coverage Note Note Date of Patient Contact: 05/19/23 Time of Patient Contact: 18:22 Narrative of Care Provided: Haleigh called after falling on the bathroom floor. Has felt the baby move only once since then, approx 20 min prior to this note. Denies vaginal bleeding or pain except for low back pain at this time. Meet on L&D for evaluation.
== END 2023-05-15 12:00 | disposition home or self-care (01) ==
LOC: LABOR 12:02 → OB 05-18 10:39
PROVIDERS: Family Provider Specialist; PCP Physician Assistant; Referring Provider Obstetrics & Gynecology; Visit Provider Obstetrics & Gynecology
DX: O36.8130 Decreased fetal movements, third trimester, not applicable or unspecified (principal); Z3A.32 32 weeks gestation of pregnancy
CPT/HCPCS: 59025; G0378; G0379

== ENCOUNTER 2023-05-19 19:33 | Outpatient (CLI) | payer OTHER, SELFPAY ==
--- NOTE | 2023-05-19 20:19 | P.TNLD_ITS ---
Visit Information Visit Information Date of evaluation: 05/19/23 Primary OB Provider: Percy Sandhu On-call OB Provider: Lyndsey Burger Reason for Evaluation: Yes other Comments/Additional reasons for admission: Haleigh had a fall in her bathroom - slipped on the rug and landed on her L upper abdomen and L elbow. Denies seeing any bruising although site of fall is tender.Here for evaluation. Desires 1 hour of monitoring since baby is doing well. Feeling baby move well now. Vital Signs Vital Signs: BP: 119/66 HR: 90 bpm T: 36.5 F RR: 16 /min [facility] Medical History Abnormal Pap smear of cervix (~2017) Anemia (~2013) Healthy adult Ovarian cyst (~2019) Painful menstrual periods (~2019) Pelvic pain affecting Right lower quadrant pain Surgical History Anesthesia Delivery by section (~04/25/21) H/O: section History of section [place] teeth removed (~2013) Family History Grandfather Stroke Heart disease Pacemaker Mother No problems noted. Father Hyperlipidemia Grandmother No problems noted. Grandfather Alcoholic Suicide Grandmother No problems noted. Sister Uterine fibroid History of partial hysterectomy Social History marital status: number of children: 3 household members: spouse and children lives independently: Yes caregiver/support person: No housing: house pets and animals: Yes (2 dogs, safe. ) education level: college (AA degree, working on Bachelor's in Education. ) occupational status: employed (Active duty [employer], works in [employer]) current occupational exposures/hazards: No renetta/sabianism: Moravian special renetta needs: No travel history: recent ([place], no illness) seatbelt use: always water heater temp set < 120 deg: Yes working smoke detector in home: Yes fire extinguisher in home: Yes carbon monox detector in home: Yes firearms in home: Yes firearms unloaded and locked: Yes do you feel safe at home: Yes Smoking Status: Former smoker Tobacco: How many years used: 1 quit status: has quit before second hand exposure: No alcohol intake: former (2-3/week when not ) substance use type: does not use during the past year weight has: remained stable well-balanced diet: daily or most days daily servings fruits/ve-4 caffeine: Yes (black tea) Type(s) of exercise: walking (treadmill at home. ) and weight lifting frequency: 3-4 times per week duration: 45-60 minutes/day Review of Systems Review of Systems Narrative: All negative except as mentioned in HPI. Evaluation Evaluation Baseline heart rate: 125 Variability: Moderate (11-25) monitor accelerations: Present Monitor Decelerations: Absent Contraction Frequency (minutes): 0 (none although she is feeling mild back cramps) Category of Tracing: Reactive Diagnosis, Plan/Disposition Final Diagnosis (1) Supervision of high risk , unspecified, third trimester: Status: Acute (2) Previous section complicating : Status: Acute (3) Fall: Status: Acute Plan/Disposition Plan: Coagulopathy labs and CBC. NST x 1 hour Discharge home.
[2023-05-19 20:50] LABS: Hematocrit 30.1 % (36-46); Hemoglobin 10.1 g/dL (12.0-16.0); Mean Corpuscular HGB Conc 33.5 % (30-36); Mean Corpuscular Hemoglobin 27.9 PG (26-34); Mean Corpuscular Volume 83.2 fL (80-100); Platelet Count 279 X10^3/uL (150-400); Red Blood Cell Count 3.62 X10^6/uL (4.0-5.2); Red Cell Distribution Width 12.8 % (11.6-14.8); White Blood Cell Count 9.5 X10^3/uL (4.5-11.0)
[2023-05-19 20:57] LABS: INR 0.9 (0.9-1.3); Prothrombin Time 10.6 SECONDS (10.1-12.7)
[2023-05-19 21:00] LABS: PTT Partial Thromboplastin Tim 24 SECONDS (26-36)
[2023-05-19 22:13] LABS: Fibrinogen 469 mg/dL (211-428)
== END 2023-05-19 21:30 | disposition home or self-care (01) ==
LOC: OB 05-25 06:57
PROVIDERS: Family Provider Specialist; PCP Physician Assistant; Referring Provider Advanced Practice Midwife; Visit Provider Advanced Practice Midwife
DX: O09.93 Supervision of high risk pregnancy, unspecified, third trimester (principal); O26.893 Other specified pregnancy related conditions, third trimester; W01.198A Fall on same level from slipping, tripping and stumbling with subsequent striking against other object, initial encounter; Z3A.33 33 weeks gestation of pregnancy
CPT/HCPCS: 59025; 85027; 85384; 85610; 85730; G0378; G0379

== ENCOUNTER 2023-06-03 11:18 | Outpatient (CLI) | payer OTHER, SELFPAY ==
--- NOTE | 2023-06-03 12:22 | PM.OBTRLD ---
Visit Information Visit Information Date of evaluation: 06/03/23 Primary OB Provider: Leann Rosario On-call OB Provider: Adri Mccormack Reason for Evaluation: Yes rule out labor Vital Signs Vital Signs: Blood pressure 117/71, pulse 105, temperature 36.0? PFSH Medical History Abnormal Pap smear of cervix (~2017) Anemia (~2013) Healthy adult Ovarian cyst (~2019) Painful menstrual periods (~2019) Pelvic pain affecting Right lower quadrant pain Surgical History Anesthesia Delivery by section (~04/25/21) H/O: section History of section [place] teeth removed (~2013) Family History Grandfather Stroke Heart disease Pacemaker Mother No problems noted. Father Hyperlipidemia Grandmother No problems noted. Grandfather Alcoholic Suicide Grandmother No problems noted. Sister Uterine fibroid History of partial hysterectomy Social History marital status: number of children: 3 household members: spouse and children lives independently: Yes caregiver/support person: No housing: house pets and animals: Yes (2 dogs, safe. ) education level: college (AA degree, working on Bachelor's in Education. ) occupational status: employed (Active duty [employer], works in [employer]) current occupational exposures/hazards: No renetta/roman catholic: Episcopal special renetta needs: No travel history: recent ([facility], no illness) seatbelt use: always water heater temp set < 120 deg: Yes working smoke detector in home: Yes fire extinguisher in home: Yes carbon monox detector in home: Yes firearms in home: Yes firearms unloaded and locked: Yes do you feel safe at home: Yes Smoking Status: Former smoker Tobacco: How many years used: 1 quit status: has quit before second hand exposure: No alcohol intake: former (2-3/week when not ) substance use type: does not use during the past year weight has: remained stable well-balanced diet: daily or most days daily servings fruits/ve-4 caffeine: Yes (black tea) Type(s) of exercise: walking (treadmill at home. ) and weight lifting frequency: 3-4 times per week duration: 45-60 minutes/day Review of Systems Review of Systems Narrative: Patient complaining of some increased liquid discharge from her vagina. No gush of fluid. No vaginal bleeding. Good movement. Patient had painful contractions every 3-4 minutes for an hour last night. She fell asleep and then when she woke up this morning she started feeling contractions again but not regular. Evaluation Evaluation Baseline heart rate: 130 Variability: Moderate (11-25) monitor accelerations: Present Monitor Decelerations: Absent Uterine Contraction Intensity: Mild Category of Tracing: Reactive Status: Category l Cervical dilation (cm): 0 Cervical effacement (%): 0 station: -4 Non-invasive Membranes Rupture Test: negative Diagnosis, Plan/Disposition Final Diagnosis (1) 35 weeks gestation of : Status: Acute Plan/Disposition Plan: Patient was concerned possible labor with perhaps leakage of fluid. AmniSure negative. Cervix is long and closed. No contractions picked up on monitor. Patient with marking when she felt cramps 3-10 minutes. Patient reassured. She is discharged home. Push fluids. Call if the contractions become regular or she has vaginal bleeding or gush of fluid. Keep her routine OB appointment. OB Disposition: home
== END 2023-06-03 12:26 | disposition home or self-care (01) ==
LOC: LABOR 12:36 → OB 06-04 12:21
PROVIDERS: Family Provider Specialist; PCP Physician Assistant; Referring Provider Specialist; Visit Provider Specialist
DX: Z03.71 Encounter for suspected problem with amniotic cavity and membrane ruled out (principal); Z3A.35 35 weeks gestation of pregnancy
CPT/HCPCS: 59025; 84112; G0378; G0379

== ENCOUNTER → 2023-06-12 11:36 | Outpatient (CLI) | payer OTHER, SELFPAY ==
[2023-06-13 07:36] LABS: Strep Grp B PCR NEG for Grp B Strep
== END ==
PROVIDERS: Family Provider Specialist; PCP Physician Assistant; Visit Provider Obstetrics & Gynecology
DX: Z34.83 Encounter for supervision of other normal pregnancy, third trimester (principal); Z3A.36 36 weeks gestation of pregnancy
CPT/HCPCS: 87653

== ENCOUNTER 2023-06-13 20:51 | Outpatient (CLI) | payer OTHER, SELFPAY ==
--- NOTE | 2023-06-13 21:10 | DI.US.S_ITS ---
PROCEDURE: US OB LIMITED INDICATIONS: PRIOR SCAR PAIN. RULE OUT RUPTURE. OUTSIDE/PRIOR DATING DATA: Last menstrual period (LMP): 09/22/2022 LMP-based estimated date of delivery (CHELSEA): 06/29/2023 First dating scan (date and location): 11/06/2022 Estimated date of delivery (CHELSEA) from first dating scan: 06/29/2023 The calculations are made using the clinical CHELSEA of 07/05/2023. TECHNIQUE: Real-time scanning was performed of the fetus, with image documentation. Endovaginal scanning: Not indicated COMPARISON: [facility], US OB LIMITED, 01/22/2023, 11:50. FINDINGS: A single living intrauterine gestation is present. Presentation: Vertex Placenta: Placental position is left posterior, without previa. Amniotic fluid index: 16.1 cm, normal range is 5-24 cm. Single deepest vertical pocket is 7.0 cm. heart rate: 152 beats per minute. Maternal cervical canal: Not evaluated Clinically estimated gestational age: 36 weeks, 6 days. Focused ultrasound examination of anterior uterine wall shows no diastasis at the area of scar. No evidence of placental abruption. IMPRESSION: 1. Single live intrauterine gestation with fetus in vertex presentation. Normal amount of amniotic fluid. heart rate is 152 beats per minute. 2. No evidence of placental abruption. No diastasis at patient's Caesarean section scar. Dictated by: Juan Mcclelland M.D. on 06/13/2023 at 22:21 Approved by: Juan Mcclelland M.D. on 06/13/2023 at 22:24
== END 2023-06-13 22:25 | disposition home or self-care (01) ==
LOC: OB 06-16 06:16
PROVIDERS: Family Provider Specialist; PCP Physician Assistant; Referring Provider Obstetrics & Gynecology; Visit Provider Obstetrics & Gynecology
DX: O34.211 Maternal care for low transverse scar from previous cesarean delivery (principal); Z3A.36 36 weeks gestation of pregnancy
CPT/HCPCS: 59025; 76815; G0378; G0379

== ENCOUNTER 2023-06-18 18:45 | Outpatient (CLI) | payer OTHER, SELFPAY ==
[2023-06-18 21:11] LABS: Appearance Urine UA CLOUDY; Bilirubin Urine UA NEGATIVE (NEGATIVE); Color Urine UA YELLOW; Glucose Urine UA NEGATIVE (Negative); Ketones Urine UA 1+ (NEGATIVE); Leukocyte Esterase Urine UA NEGATIVE (NEGATIVE); Nitrite Urine UA NEGATIVE (Negative); Occult Blood Urine UA NEGATIVE (Negative); Protein Urine UA NEGATIVE (Negative); Urobilinogen Urine UA 0.2 E.U./dL (0.2)
[2023-06-18 21:36] LABS: Bacteria Urine None Seen; RBC Urine None Seen (0-5/HPF); Squamous Epithelial Cell Urine 0-1 /HPF (0-5/HPF); WBC Urine None Seen (0-5/HPF)
[2023-06-18 21:37] LABS: Amorphous Sediment Urine 2+; Culture Indicated Urine Cult Not Indicated
== END 2023-06-18 20:40 | disposition home or self-care (01) ==
LOC: OB 06-22 11:58
PROVIDERS: Family Provider Specialist; PCP Physician Assistant; Referring Provider Obstetrics & Gynecology; Visit Provider Obstetrics & Gynecology
DX: O13.3 Gestational [pregnancy-induced] hypertension without significant proteinuria, third trimester (principal); Z3A.37 37 weeks gestation of pregnancy
CPT/HCPCS: 59025; 59050; 81001; G0378; G0379

== ENCOUNTER 2023-06-27 18:55 | Outpatient (CLI) | payer OTHER, SELFPAY | END 2023-06-27 19:50 | disposition home or self-care (01) | LOC: OB 07-08 08:03 | PROVIDERS: Family Provider Specialist; PCP Physician Assistant; Referring Provider Obstetrics & Gynecology; Visit Provider Obstetrics & Gynecology | DX: O36.8130 Decreased fetal movements, third trimester, not applicable or unspecified (principal); Z3A.39 39 weeks gestation of pregnancy | CPT/HCPCS: 59025; G0378; G0379 ==

== ENCOUNTER 2023-06-29 05:39 | Inpatient (IN) | payer OTHER, SELFPAY ==
[2023-06-29] VITALS (7 sets, daily range): BP systolic 93–117; BP diastolic 43–64; PULSE 74–97; RESP 16–18; TEMP 36.2–36.6; O2SAT 97–100
[2023-06-29] MEDS: LACTATED RINGERS 1,000 ML 999 ML IV (06:35)
[2023-06-29 06:57] LABS: Add Manual Diff / Slide Review NO; Basophils Absolute Auto 0 /uL (0-100); Basophils Percent Auto 0.5 % (0-2); Eosinophils Absolute Auto 100 /uL (0-450); Eosinophils Percent Auto 0.8 % (2-4); Hematocrit 28.2 % (36-46); Hemoglobin 9.4 g/dL (12.0-16.0); Lymphocytes Absolute Auto 1900 /uL (1100-4500); Lymphocytes Percent Auto 21.7 % (25-40); Mean Corpuscular HGB Conc 33.2 % (30-36); Mean Corpuscular Hemoglobin 25.9 PG (26-34); Mean Corpuscular Volume 77.9 fL (80-100); Monocytes Absolute Auto 600 /uL (0-900); Monocytes Percent Auto 7.5 % (3-14); Neutrophils Absolute Auto 5900 /uL (1500-7000); Neutrophils Percent Auto 69.5 % (50-75); Platelet Count 272 X10^3/uL (150-400); Red Blood Cell Count 3.62 X10^6/uL (4.0-5.2); Red Cell Distribution Width 14.1 % (11.6-14.8); White Blood Cell Count 8.5 X10^3/uL (4.5-11.0)
[2023-06-29] MEDS: CITRIC ACID/SODIUM CITRATE 15 ML SOLUTION 30 ML PO (07:31)
--- NOTE | 2023-06-29 07:42 | PM.PREOP ---
Pre-operative Note COVID-19 Criteria for continued procedure: Possibility delay results in more complex future surgery or treatment Interval Note History & Physical reviewed/Exam performed by Physician: Yes Changes to H&P: No
--- NOTE | 2023-06-29 07:43 | P.HPOB_ITS ---
OB HPI Date/Time Date of admission: 06/29/23 Date Patient Seen: 06/29/23 Time Patient Seen: 07:30 History of Present Condition Chief complaint: Repeat w/revision Keloid scar : 4 Para: 3 Estimated Date of Delivery: 07/05/23 Estimated Gestational Age (weeks): 39 Narrative: Haleigh Padilla is a 27 year old female at 39 weeks' gestation with prior section, mildly keloid incision scar here for repeat section and revision section scar Indications Operative indications ( section): previous uterine surgery History of Present care: good care, initiated at week # (10), number of visits (10) and pounds weight gain (44) Dating criteria: LMP confirmed by 1st trimester US Ultrasounds: normal mid trimester US Obstetrical complications: none Medical complications: none Preadmission Labs Blood type: A (+) positive -: Antibody screen: negative, GBS status: negative, HBsAG: negative, HIV: negative and RPR/VDLR: negative -: Chlamydia screen: not detected and Gonorrhea screen: not detected -: Rubella: immune and Varicella: immune HCAB: negative Cell-free DNA: Normal female 1 hr GTT: 104 Prior (ies) History: Del. DateGA/WeeksLabor LgthBirth WtSexRouteOutcomeAnesthesiaPlace DelvBreastfeedPreg CompName 04/24/16 39 12 8 lb 4 oz MaleC-sectionlive - full [email or web address] 4 mos[facility]used shield otherCash 05/24/19 39 0 8 lb 1 oz MaleC-sectionlive - full termspinal@[facility] 6 months/no shield othernter 04/25/21 39 9 lb MaleC-sectionlive - full term [facility] 6 months Jr Sharla Evaluation Evaluation Baseline heart rate: 130 Variability: Moderate (11-25) monitor accelerations: Present Monitor Decelerations: Absent Contraction Frequency (minutes): 0 Category of Tracing: Reactive Status: Category l PFSH Medical History Abnormal Pap smear of cervix (~2017) Anemia (~2013) Healthy adult Ovarian cyst (~2019) Painful menstrual periods (~2019) Pelvic pain affecting Right lower quadrant pain Surgical History Anesthesia Delivery by section (~04/25/21) H/O: section History of section [place] teeth removed (~2013) Family History Grandfather Stroke Heart disease Pacemaker Mother No problems noted. Father Hyperlipidemia Grandmother No problems noted. Grandfather Alcoholic Suicide Grandmother No problems noted. Sister Uterine fibroid History of partial hysterectomy Social History marital status: number of children: 3 household members: spouse and children lives independently: Yes caregiver/support person: No housing: house pets and animals: Yes (2 dogs, safe. ) education level: college (AA degree, working on [employer] in Education. ) occupational status: employed (Active duty [employer], works in [employer]) current occupational exposures/hazards: No renetta/jew: [employer] special renetta needs: No travel history: recent ([place], no illness) seatbelt use: always water heater temp set < 120 deg: Yes working smoke detector in home: Yes fire extinguisher in home: Yes carbon monox detector in home: Yes firearms in home: Yes firearms unloaded and locked: Yes do you feel safe at home: Yes Smoking Status: Former smoker Tobacco: How many years used: 1 quit status: has quit before second hand exposure: No alcohol intake: former (2-3/week when not ) substance use type: does not use during the past year weight has: remained stable well-balanced diet: daily or most days daily servings fruits/ve-4 caffeine: Yes (black tea) Type(s) of exercise: walking (treadmill at home. ) and weight lifting frequency: 3-4 times per week duration: 45-60 minutes/day Meds Home Medications and Allergies Home Medications Medication Instructions Recorded Confirmed Type prenat.vits,parmjit,qaw-kgaj-vtepb 1 tab PO DAILY 09/17/20 06/29/23 History bupropion HCl 150 mg 24 hr tablet, 150 mg PO DAILY #30 tabs 02/03/23 06/29/23 Rx extended release sertraline 50 mg tablet 100 mg PO DAILY Depression #60 tabs 02/03/23 06/29/23 Rx Double Electric Breast Pump #1 ea 03/31/23 06/29/23 Rx aluminum-mag hydroxide-simethicone 10 ml PO QID PRN Acid Reflux 06/29/23 06/29/23 History 200 mg-200 mg-20 mg/5 mL oral susp Allergies Allergy/AdvReac Type Severity Reaction Status Date / Time No Known Drug Allergies Allergy Verified 06/22/23 14:04 Review of Systems Review of Systems Narrative: Patient denies headaches, scotomata, epigastric pain. Good movement. No leakage of fluid. No regular contractions. No vaginal bleeding. No fevers. OB Exam Vital signs Blood Pressure: 113/58 Pulse Rate: 97 Narrative Exam Narrative: HEENT exam within normal limits. Lungs are clear to auscultation percussion. Heart is regular rate and rhythm no S3-S4 or murmurs. No thyromegaly. Abdomen is gravid. Fetus is vertex. Extremities without edema and nontender. Objective Labs 06/29/23 06:35 Labs: Laboratory Results - last 24 hr 06/29/23 06/29/23 06:35 06:35 WBC 8.5 RBC 3.62 L Hgb 9.4 L Hct 28.2 L MCV 77.9 L MCH 25.9 L MCHC 33.2 RDW 14.1 Plt Count 272 Neut % (Auto) 69.5 Lymph % (Auto) 21.7 L [place] % (Auto) 7.5 Eos % (Auto) 0.8 L Baso % (Auto) 0.5 Neut # (Auto) 5900 Lymph # (Auto) 1900 [place] # (Auto) 600 Eos # (Auto) 100 Baso # (Auto) 0 Blood Type A Positive Antibody Screen Negative Assessment and Plan Assessment and Plan Assessment and Plan narrative: 39 week gestation with prior section here for repeat section. Mildly keloid prior incision for surgical revision. Significant anemia from inadequate intake. Time Spent with Patient Total time spent with greater than 50% in coordination of care (as documented) at patient's floor/unit and/or counseling patient:: less than 15 minutes
[2023-06-29] MEDS: CEFAZOLIN 2 GM/100 ML PREMIX 100 ML IV (07:51)
--- NOTE | 2023-06-29 07:51 | P.TNLD_ITS ---
Visit Information Visit Information Date of evaluation: 06/27/23 On-call OB Provider: Janak Vallejo Reason for Evaluation: Yes non-stress test non-stress test reason: decreased fe lila movement Comments/Additional reasons for admission: pt notes 5 hours of decreased motion. She presents today for non stress test. Vital Signs Vital Signs: Vital Signs - 8 hr 06/29/23 06:55 Blood Pressure 113/58 L [facility] Medical History Abnormal Pap smear of cervix (~2017) Anemia (~2013) Healthy adult Ovarian cyst (~2019) Painful menstrual periods (~2019) Pelvic pain affecting Right lower quadrant pain Surgical History Anesthesia Delivery by section (~04/25/21) H/O: section History of section [place] teeth removed (~2013) Family History Grandfather Stroke Heart disease Pacemaker Mother No problems noted. Father Hyperlipidemia Grandmother No problems noted. Grandfather Alcoholic Suicide Grandmother No problems noted. Sister Uterine fibroid History of partial hysterectomy Social History marital status: number of children: 3 household members: spouse and children lives independently: Yes caregiver/support person: No housing: house pets and animals: Yes (2 dogs, safe. ) education level: college (AA degree, working on Bachelor's in Education. ) occupational status: employed (Active duty [employer], works in [employer]) current occupational exposures/hazards: No renetta/gnosticism: [employer] special renetta needs: No travel history: recent ([place], no illness) seatbelt use: always water heater temp set < 120 deg: Yes working smoke detector in home: Yes fire extinguisher in home: Yes carbon monox detector in home: Yes firearms in home: Yes firearms unloaded and locked: Yes do you feel safe at home: Yes Smoking Status: Former smoker Tobacco: How many years used: 1 quit status: has quit before second hand exposure: No alcohol intake: former (2-3/week when not ) substance use type: does not use during the past year weight has: remained stable well-balanced diet: daily or most days daily servings fruits/ve-4 caffeine: Yes (black tea) Type(s) of exercise: walking (treadmill at home. ) and weight lifting frequency: 3-4 times per week duration: 45-60 minutes/day Exam Vital Signs (past 8 hours): - 06/29/23 06:55 Blood Pressure 113/58 L Objective Labs 06/29/23 06:35 Labs: Laboratory Results - last 24 hr 06/29/23 06/29/23 06:35 06:35 WBC 8.5 RBC 3.62 L Hgb 9.4 L Hct 28.2 L MCV 77.9 L MCH 25.9 L MCHC 33.2 RDW 14.1 Plt Count 272 Neut % (Auto) 69.5 Lymph % (Auto) 21.7 L Green % (Auto) 7.5 Eos % (Auto) 0.8 L Baso % (Auto) 0.5 Neut # (Auto) 5900 Lymph # (Auto) 1900 Green # (Auto) 600 Eos # (Auto) 100 Baso # (Auto) 0 Blood Type A Positive Antibody Screen Negative Evaluation Evaluation Baseline heart rate: 130 Variability: Moderate (11-25) monitor accelerations: Present Monitor Decelerations: Absent Contraction Frequency (minutes): 0 Category of Tracing: Reactive Status: Category l Diagnosis, Plan/Disposition Final Diagnosis (1) Decreased movement: Status: Acute Plan/Disposition Plan: Patient to home will have on Thursday patient informed that should she notes motion decreased motion she should return. OB Disposition: home
[2023-06-29] MEDS: TRIAMCINOLONE 40 MG/ML VIAL IM (08:36)
--- NOTE | 2023-06-29 09:19 | PM.OP.1 ---
Operative Date/Time/Diagnoses Date of procedure: 06/29/23 Time of procedure: 09:19 Pre-op diagnosis: 39 week gestation with prior section for repeat low-transverse section, keloid incision for scar revision Post-op diagnosis: same Procedure & Clinicians Procedure: Low-transverse section with scar revision Same procedure as scheduled: Yes Indications: 39 week gestation with prior section, keloid incision for scar revision Surgeon: Adri Mccormack Brush Polisher: Steffany Sprague Click Yes if Unassisted: No Anesthesia Type: Spinal Operative Notes Findings: Normal tubes, ovaries, uterus. Multiple transverse incision scars with minor keloid formation Closure Type: primary Specimen(s): none sent Applied: catheter (Keller) Estimated Blood Loss (mL): 600 Blood products transfused: none Procedure in detail: The patient was brought to the operating room where she underwent a spinal for anesthesia. She was placed in a supine position with a left lateral tilt. A Keller catheter was placed. Pulsatile stockings were placed and functional throughout the case. 2 g of Ancef were given IV prior to the incision. Warming was in place. The patient was prepped and draped in usual sterile fashion. A low transverse incision was made with a scalpel removing the old incisions with the Bovie and the incision was carried down to the fascial layer which was incised transversely with scissors. The physical therapy assistant did her side of the incision. The midline attachments are superiorly and inferiorly. Some bleeding was controlled Bovie. The rectus muscles were in the midline and the peritoneal incision was made with no damage to internal structures. The peritoneum was incised and superiorly and inferiorly. The incision was stretched with the surgeon and physical therapy assistant placing traction. Bladder blade was placed and a bladder flap was developed and the bladder held away from the lower uterine segment. An incision was made in the uterus with the scalpel and the incision was extended with stretching. The head was elevated out of the abdomen and with fundal pressure by the physical therapy assistant the baby was delivered. The was bulb suctioned for clear fluid and handed off to the warmer. Cord blood was collected. The placenta delivered spontaneously with traction. The uterus was cleaned with clean laps. The uterine incision was closed in 2 layers of 0 chromic suture the first a running locking layer the second an imbricating layer. The physical therapy assistant was helping to expose the incision. The bladder peritoneum was repaired with 2-0 Vicryl suture. The gutters were cleaned of any remaining fluids and ovaries and tubes were observed to be normal. Adequate hemostasis was noted. The perineum was closed with 2-0 Vicryl suture. The fascia layer was closed with 0 Vicryl suture with 2 stitches. The physical therapy assistant repairing half the incision with helping to retract and expose the incision for the other half. The incision was irrigated and adequate hemostasis noted. The incision was closed with interrupted 3-0 Vicryl sutures and then a subcuticular stitch of 4-0 Vicryl suture. 40 mg Betamethasone in 10 cc was injected in the incision. Steri-Strips were placed. The uterus was massaged to remove any clots. The patient went to recovery room in good condition. Counts of instruments and sponges were correct. Dr. Sprague was present throughout the case to assist with retraction, fundal pressure to deliver the , and suturing half the fascia. Complications: none Post-operative Condition: stable Disposition: same day surgery Plan for aftercare: Routine post section
[2023-06-29] MEDS: KETOROLAC 30 MG/ML VIAL IV ×3 (11:22→23:54)
[2023-06-29] MEDS: ACETAMINOPHEN 325 MG TABLET 650 MG PO ×2 (13:38→19:40)
[2023-06-29] MEDS: LANOLIN OINT 7 GM 1 APPLIC TOP (13:38)
[2023-06-29] MEDS: SERTRALINE 50 MG TABLET 100 MG PO (21:02)
[2023-06-29] MEDS: buPROPion XL 150 MG TAB PO (21:02)
[2023-06-30] MEDS: ACETAMINOPHEN 325 MG TABLET 650 MG PO ×2 (03:59→08:44)
[2023-06-30] MEDS: KETOROLAC 30 MG/ML VIAL IV (06:15)
--- NOTE | 2023-06-30 07:44 | P.DS_ITS ---
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 Patient is ambulatory, urinating, tolerating regular diet, passing gas, well, with pain under control. Peripartum Data Delivery Method: Section (Repeat) Procedures: Repeat low-transverse section with scar revision complications: none [place] 1: Gender: Female Disposition of : home Discharge Diagnosis (1) Delivery by section of full-term : Status: Acute (2) Previous section complicating : Status: Acute (3) Keloid scar: Status: Acute (4) Anemia: Status: Acute Problem Details: r/t . Inadequate intake Status at Discharge Cognitive/behavioral status at discharge: oriented Functional status at discharge: independent ambulation Overall status at discharge: patient is progressing back to baseline Time Spent with Patient Time attestation: Total time spent providing and/or coordinating discharge services: Time spent: Less than 30 minutes Objective Labs 06/29/23 06:35 Exam Vital Signs (past 8 hours): Blood pressure 111/56, pulse 99, temperature 98.1? Oxygen Delivery Method Room Air Narrative Exam Narrative: Patient's abdomen is soft, nontender. Uterus is firm, U-1, nontender. Dressing is clean, dry, intact. Mild lochia. Extremities without edema and nontender. Discharge Plan Discharge Plan Patient Disposition: Home Discharge orders & Medications Prescriptions: New ferrous sulfate 325 mg (65 mg iron) Tablet 325 mg PO DAILY Qty: 30 0RF ibuprofen 600 mg Tablet 600 mg PO Q6H Qty: 20 0RF oxycodone 5 mg Tablet 5 mg PO Q4H PRN (Reason: Pain, Moderate (4-6)) Qty: 20 0RF Continued prenat.vits,parmjit,[id number] Tablet 1 tab PO DAILY bupropion HCl 150 mg tablet extended release 24 hr 150 mg PO DAILY Qty: 30 12RF sertraline 50 mg tablet 100 mg PO DAILY Qty: 60 12RF (DME) Double Electric Breast Pump See Rx Instructions .Route .MEDSUPPLY Qty: 1 0RF Rx Instructions: Pump with supplies alum-mag hydroxide-simeth 200-200-20 mg/5 mL Suspension 10 ml PO QID PRN (Reason: Acid Reflux) Rx Instructions: administer between meals and at bedtime Follow up/Referrals: Leann Rosario MD [Physician] - (Incision check: Thursday, @ 1:45pm w/ Dr. Rosario) Diet/Activity/Treatments Diet: Regular Activity: Nothing in vagina or lifting over 10 lb for 6 weeks Skin/Wound/Dressing Care Report to your healthcare provider any signs of infection, such as:: chills, fever and increased pain Dressing: Leave dressing in place until one-week post op appointment Visit Report/Discharge Packet Instructions: DI for Stand Alone Forms: Discharge: Care, Patient Portal/API Discharge Data Primary Care Provider: Ronda Hernandez
--- NOTE | 2023-06-30 07:50 | PM.OBDS.1 ---
Discharge Providers Provider Date of admission: 06/29/23 05:39 Discharge Date: 06/30/23 Primary care physician: Ronda Hernandez PA-C Consults: 06/29/23 10:39 Consult to Costume Shop Manager Routine Comment: Discharge provider: Adri Mccormack MD Summary Hospital Course Date Patient Seen: 06/30/23 Time Patient Seen: 07:50 Hospital Course: Patient underwent a repeat section with scar revision on 06/29/2023. Patient is ambulatory, urinating, tolerating regular diet, passing gas, well, with pain under control. Discharge Diagnosis (1) Delivery by section of full-term infant: Status: Acute (2) Previous section complicating : Status: Acute (3) Keloid scar: Status: Acute (4) Anemia: Status: Acute Problem Details: r/t . Inadequate intake Time Spent with Patient Time attestation: Total time spent providing and/or coordinating discharge services: Objective Labs 06/29/23 06:35 Exam Vital Signs (past 8 hours): Oxygen Delivery Method Room Air Discharge Plan Discharge Plan Patient Disposition: Home Discharge orders & Medications Prescriptions: New ferrous sulfate 325 mg (65 mg iron) Tablet 325 mg PO DAILY Qty: 30 0RF ibuprofen 600 mg Tablet 600 mg PO Q6H Qty: 20 0RF oxycodone 5 mg Tablet 5 mg PO Q4H PRN (Reason: Pain, Moderate (4-6)) Qty: 20 0RF Continued prenat.vits,parmjit,[id number]-vpkvn Tablet 1 tab PO DAILY bupropion HCl 150 mg tablet extended release 24 hr 150 mg PO DAILY Qty: 30 12RF sertraline 50 mg tablet 100 mg PO DAILY Qty: 60 12RF (DME) Double Electric Breast Pump See Rx Instructions .Route .MEDSUPPLY Qty: 1 0RF Rx Instructions: Pump with supplies alum-mag hydroxide-simeth 200-200-20 mg/5 mL Suspension 10 ml PO QID PRN (Reason: Acid Reflux) Rx Instructions: administer between meals and at bedtime Follow up/Referrals: Leann Rosario MD [Physician] - (Incision check: @ 1:45pm w/ Dr. Rosario) Diet/Activity/Treatments Diet: Regular Activity: Nothing in vagina or lifting over 10 lb for 6 weeks Skin/Wound/Dressing Care Report to your healthcare provider any signs of infection, such as:: chills, fever and increased pain Dressing: Leave dressing in place until one-week post op appointment Visit Report/Discharge Packet Instructions: DI for Stand Alone Forms: Discharge: Care, Patient Portal/API Discharge Data Primary Care Provider: Ronda Hernandez
[2023-06-30] MEDS: FERROUS SULFATE 325 MG TABLET PO (08:45)
[2023-06-30] MEDS: PRENATAL VIT,CALC/IRON/FOLIC 1 TABLET 1 TAB PO (08:45)
[2023-06-30 09:42] LABS: Add Manual Diff / Slide Review NO; Basophils Absolute Auto 0 /uL (0-100); Basophils Percent Auto 0.3 % (0-2); Eosinophils Absolute Auto 0 /uL (0-450); Eosinophils Percent Auto 0.4 % (2-4); Hematocrit 23.7 % (36-46); Hemoglobin 7.9 g/dL (12.0-16.0); Lymphocytes Absolute Auto 1200 /uL (1100-4500); Lymphocytes Percent Auto 11.2 % (25-40); Mean Corpuscular HGB Conc 33.3 % (30-36); Mean Corpuscular Hemoglobin 26.4 PG (26-34); Mean Corpuscular Volume 79.5 fL (80-100); Monocytes Absolute Auto 400 /uL (0-900); Monocytes Percent Auto 3.8 % (3-14); Neutrophils Absolute Auto 8700 /uL (1500-7000); Neutrophils Percent Auto 84.3 % (50-75); Platelet Count 237 X10^3/uL (150-400); Red Blood Cell Count 2.98 X10^6/uL (4.0-5.2); Red Cell Distribution Width 14.1 % (11.6-14.8); White Blood Cell Count 10.3 X10^3/uL (4.5-11.0)
== END 2023-06-30 11:49 | disposition home or self-care (01) | DRG 788 ==
PROVIDERS: Admitting Provider Obstetrics & Gynecology; Family Provider Specialist; PCP Physician Assistant; Referring Provider Obstetrics & Gynecology; Visit Provider Obstetrics & Gynecology
PROC: 10D00Z1 Extraction of Products of Conception, Low, Open Approach (ICD-10-PCS; CPT 59514; principal; 2023-06-29 07:45)
DX: O34.211 Maternal care for low transverse scar from previous cesarean delivery (principal); Z3A.39 39 weeks gestation of pregnancy; Z37.0 Single live birth; O99.02 Anemia complicating childbirth; D53.9 Nutritional anemia, unspecified
CPT/HCPCS: 36415; 59050; 59510; 59514; 85025; 86850; 86900; 86901; J0690; J1885; J2274; J2405; J2590

== ENCOUNTER 2024-09-16 19:11 | Emergency (ER) | payer OTHER, SELFPAY ==
[2024-09-16 19:20] VITALS: BP 133/68; PULSE 94; RESP 17; TEMP 36.8; O2SAT 99; BMI 32.1
[2024-09-16 19:22] VITALS: PULSE 85; O2SAT 99
[2024-09-16 19:45] LABS: Bacteria Urine Many (>30); Squamous Epithelial Cell Urine 0-1 /HPF (0-5/HPF); Urine Volume 10mL (spun)
[2024-09-16 19:46] LABS: Culture Indicated Urine Specimen Cultured; RBC Urine None Seen (0-5/HPF); WBC Urine 5-10/HPF (0-5/HPF)
--- NOTE | 2024-09-16 19:46 | ED.FEMALEGU ---
HPI - Female Genitourinary General Chief complaint: Urogenital-Female Stated complaint: UTI Time Seen by Provider: 09/16/24 19:46 Source: patient Mode of arrival: Ambulatory History of Present Illness HPI Narrative: Patient is a 28-year-old female no significant past medical history presents to the ED for evaluation of dysuria. States that she thinks she might have a UTIs describing foul-smelling urine hesitancy, however she has not complaining of any other symptoms at this time. Related Data Home Medications Medication Instructions Recorded Confirmed prenat.vits,parmjit,[id number] 1 tab PO DAILY 09/17/20 06/29/23 aluminum-mag hydroxide-simethicone 10 ml PO QID PRN Acid Reflux 06/29/23 06/29/23 200 mg-200 mg-20 mg/5 mL oral susp Previous Rx's Medication Instructions Recorded Double Electric Breast Pump #1 ea 03/31/23 ferrous sulfate 325 mg (65 mg 325 mg PO DAILY #30 tabs 06/30/23 iron) tablet ibuprofen 600 mg tablet 600 mg PO Q6H #20 tabs 07/09/23 levonorgestrel 21 mcg/24 hr (up to 1 device intrauterine ONCE #1 ea 09/10/23 8 years) 52 mg intrauterine device (Mirena) sertraline 50 mg tablet 75 mg (1.5 x 50 mg) PO DAILY 09/10/23 Depression #60 tabs bupropion HCl 150 mg tablet,12 hr 150 mg PO BID #60 ea 09/11/23 sustained-release cephalexin 500 mg capsule 500 mg PO TID 7 days #21 caps 09/16/24 Allergies Allergy/AdvReac Type Severity Reaction Status Date / Time No Known Drug Allergies Allergy Verified 07/06/23 13:34 Review of Systems Review of Systems Narrative: General: Denies fever, chills, weight loss HEENT: Denies headache, eye drainage, eye irritation, head trauma, sore throat, voice change Cardiovascular: Denies any chest pain, palpitations, shortness of breath, tachycardia Respiratory: Denies any shortness of breath, cough, wheeze, stridor GI/: Denies any abdominal pain, nausea, vomiting, diarrhea, bright red blood per rectum, melanotic stools, positive urinary hesitancy, frequency, dysuria MSK: Denies any joint pain, muscle pains, swelling Skin: Denies any rashes, lesions, discoloration Neuro: Denies any headache, lightheadedness, dizziness, fainting, weakness Psych: Denies SI/HI Patient History Medical History (Updated 09/16/24 @ 20:03 by Cristofer Givens DO) Pelvic pain affecting Anemia (~2013) Painful menstrual periods (~2019) Ovarian cyst (~2019) Abnormal Pap smear of cervix (~2017) Right lower quadrant pain Healthy adult Surgical History (Updated 09/30/23 @ 15:00 by Leann Rosario MD) Delivery by section (~04/25/21) Colony teeth removed (~2013) Anesthesia History of section H/O: section Family History Grandfather Stroke Heart disease Pacemaker Mother No problems noted. Father Hyperlipidemia Grandmother No problems noted. Grandfather Alcoholic Suicide Grandmother No problems noted. Sister Uterine fibroid History of partial hysterectomy Exam Narrative Exam Narrative: General: Cooperative, comfortable, well-developed, not in acute distress HEENT: Normocephalic, atraumatic, PERRLA, normal sclera, eyelids normal, Neck: Active full range of motion, atraumatic Chest: Normal to inspection, negative crepitus, no overlying erythema ecchymosis Respiratory: Normal respiratory effort, not in acute respiratory distress, clear to auscultation bilaterally negative cough, wheeze, tachypnea, rhonchi, rales Cardiology: Regular rate rhythm negative gallop, murmur, rubs GI/: Normal to inspection, soft, nonrigid, no tenderness to palpation, exam deferred MSK: Full range of active range of motion of all 4 extremities, atraumatic Skin: No rashes lesions noted Neuro: Alert awake oriented x3, moves all 4 extremities spontaneously, cranial nerves intact, able to answer all questions appropriately follows commands appropriately Psych: Cooperative, negative suicidal or homicidal ideations Initial Vital Signs Initial Vital Signs: Vital Signs Temperature 98.2 F 09/16/24 19:20 Pulse Rate 94 H 09/16/24 19:20 Respiratory Rate 17 09/16/24 19:20 Blood Pressure 133/68 09/16/24 19:20 Pulse Oximetry 99 09/16/24 19:20 Oxygen Delivery Method Room Air 09/16/24 19:20 Course Orders Ordered: ED Orders 09/16/24 19:17 Urine Microscopic Stat Vital Signs Vital signs: Vital Signs - 8 hr 09/16/24 19:20 Temperature 98.2 F Pulse Rate 94 H Respiratory Rate 17 Blood Pressure 133/68 Pulse Oximetry 99 Oxygen Delivery Method Room Air MDM - Female Genitourinary Differential Diagnosis Differential diagnosis: Likely urinary tract infection and cystitis Lab Data Labs: Urine Dip Bedside Urine Glucose Negative Bedside Urine Bilirubin - Negative Bedside Urine Ketone - Negative Urine Specific [place] 1.015 Bedside Urine Occult Blood +/- Bedside Urine pH 6 Bedside Urine Protein - Negative Bedside Urine Urobilinogen +/- 1mg Bedside Urine Nitrite + Positive Bedside Urine Leukocytes - Negative Esterase MDM Narrative Medical decision making narrative: Patient is a 28-year-old female with no significant past medical history presenting for urinary tract infection symptoms. States she has had hesitancy foul-smelling urine ongoing persistent since Thursday states that she tried calling her PCP but could not see her until , states that today she felt symptoms getting worse decided come into the ED for further evaluation treatment. Urinalysis here showing positive WBCs consistent with a urinary tract infection 1st dose of antibiotics here sent home with prescription, strict return precautions given safe for discharge home with outpatient follow up Discharge Plan Departure Patient Disposition: Home Clinical Impression: Urinary tract infection Activity Restrictions/Additional Instructions: Please read the discharge instructions sheet carefully and bring all papers to all doctor follow-up visits, as it may contain information that your doctor may want to see. Disease processes change and evolve, if your symptoms worsen or if you develop any new symptoms that are concerning to you please return for evaluation. Your evaluation today does not show any evidence of any life-threatening/serious illnesses requiring admission to the hospital or surgery. Please follow-up with your doctor for re-evaluation in approximately 1 day. Seek immediate medical attention for any worrisome symptoms. Prescriptions: New cephalexin 500 mg capsule 500 mg PO TID 7 Days Qty: 21 0RF No Action ibuprofen 600 mg tablet 600 mg PO Q6H Qty: 20 0RF bupropion HCl 150 mg tablet sustained-release 12 hr 150 mg PO BID Qty: 60 3RF prenat.vits,parmjit,[id number] Tablet 1 tab PO DAILY (DME) Double Electric Breast Pump See Rx Instructions .Route .MEDSUPPLY Qty: 1 0RF Rx Instructions: Pump with supplies Mirena 21 mcg/24 hours (8 yrs) 52 mg intrauterine device 1 device intrauterine ONCE Qty: 1 0RF sertraline 50 mg tablet 75 mg PO DAILY Qty: 60 12RF Rx Instructions: Take one tab by mouth x1 week then take 1/2 tab by mouth x1 week to wean off medication. alum-mag hydroxide-simeth 200-200-20 mg/5 mL Suspension 10 ml PO QID PRN (Reason: Acid Reflux) Rx Instructions: administer between meals and at bedtime ferrous sulfate 325 mg (65 mg iron) Tablet 325 mg PO DAILY Qty: 30 0RF Referrals: Ronda Hernandez [facility] [Primary Care Provider] - Stand Alone Forms: Patient Portal/API/Survey
[2024-09-16] MEDS: cephALEXin 250 MG CAPSULE 500 MG PO (20:11)
[2024-09-16 20:13] VITALS: BP 114/59; PULSE 90; O2SAT 97
== END 2024-09-16 20:17 | disposition home or self-care (01) ==
PROVIDERS: Emergency Provider Student in an Organized Health Care Education/Training Program; Family Provider Specialist; PCP Physician Assistant
DX: N39.0 Urinary tract infection, site not specified (principal)
CPT/HCPCS: 81003; 81015; 87077; 87086; 87186; 99283